=== PATIENT | female | born 1950 | race Caucasian/White ===

== ENCOUNTER 2016-12-04 10:55 | Outpatient (CLI) | payer OTHER ==
--- NOTE | 2016-12-04 13:12 | DIAGNOSTIC IMAGING REPORT ---
PROCEDURE: US VENOUS - RIGHT EXT INDICATION: RT NON HEALING WOUND,DIABETIC.SWELLING,PAIN. TECHNIQUE: Duplex sonography of the deep and superficial venous system in the right lower extremity was performed. Compression and augmentation techniques were used. The patient was scanned in the upright position. Surveillance of the venous system during Valsalva maneuver when appropriate was performed. COMPARISON: Bilateral lower extremity venous insufficiency ultrasound 05/03/2014 FINDINGS: Each interrogated segment of the deep vein demonstrates normal compressibility, augmentation, and normal color Doppler flow without filling defect. No thrombus in either greater saphenous or short saphenous vein. There is no venous reflux in the right common or superficial femoral veins. Right greater saphenous vein has been harvested. There is a 4.4 cm complex avascular popliteal cyst. IMPRESSION: 1. No evidence of a right leg DVT or venous insufficiency 2. Right greater saphenous vein previously harvested 3. Right popliteal cyst
--- NOTE | 2016-12-04 13:57 | DIAGNOSTIC IMAGING REPORT ---
PROCEDURE: US ART LOW EXT WITH KANNAN-RIGHT INDICATION: RT NON HEALING WOUND,DIABETIC.SWELLING,PAIN. TECHNIQUE: Resting ABIs were performed. Color Doppler duplex imaging of the right lower extremity was performed. COMPARISON: Bilateral lower extremity arterial duplex ultrasound 05/03/2014 FINDINGS: ABIs: Posterior tibial and dorsalis pedis were undetectable. VESSELS: Extensive calcific atherosclerosis. Biphasic wave form of the external iliac and common femoral arteries with monophasic wave form distally to the ankle including the graft. RIGHT LOWER EXTREMITY PEAK SYSTOLIC VELOCITIES: External iliac: 163 cm/second. Common femoral artery: 13 cm/second. There is a fem-pop graft with proximal anastomoses 16 cm/sec and distal anastomosis 5 cm/sec. There is markedly slow flow through the graft. Profunda femoral artery: 307 cm/second. Mid superficial femoral artery: 26 cm/second. Distal superficial femoral artery: 7 cm/second. Popliteal artery: 8 cm/second. Proximal posterior tibial artery: 9 cm/second. Proximal anterior tibial artery: 10 cm/second. Distal posterior tibial artery: 9 cm/second. Dorsalis pedis artery: 6 cm/second. IMPRESSION: 1. Right lower extremity severe resting arterial insufficiency with trickle flow through the common femoral artery and fem-pop graft. Markedly diminished flow to the ankle. 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 2. Results discussed with Dr. Miller (Dr. Plasencia).
--- NOTE | 2016-12-04 14:17 | DIAGNOSTIC IMAGING REPORT ---
PROCEDURE: XR FOOT 3 VIEWS - RIGHT INDICATION: POSSIBLE FRACTURE TECHNIQUE: Three views. COMPARISON: None. FINDINGS: There is an old healed fracture of the proximal phalanx of the great toe. There are large calcaneal spurs. IMPRESSION: 1. Old healed fracture of the proximal phalanx of the great toe.
== END 2016-12-04 23:00 ==
LOC: US SRH 10:55
DX: L97.522 Non-pressure chronic ulcer of other part of left foot with fat layer exposed (principal); I74.3 Embolism and thrombosis of arteries of the lower extremities; S92.411S Displaced fracture of proximal phalanx of right great toe, sequela

== ENCOUNTER 2017-01-16 03:23 | Inpatient (IN) | payer OTHER ==
[2017-01-16] VITALS (17 sets, daily range): BP systolic 93–157; BP diastolic 54–107
[~2017-01-16] VITALS: Ht 162.6 cm; Wt 94.9 kg
--- NOTE | 2017-01-16 05:07 | ED ORDER SUMMARY ---
..... Patient: ANDRE DONATO OrderSheet [facility] VisitID: [id number] [place] [address] 66y, F Registration Date/Time: 01/16/2017 ORDER SHEET Weight: 79.3 kg (estimated) Allergies: Codeine GENERAL ORDERS: CBC w Diff Urgent (03:31 01/16/2017 Charlie Morales) (Ack 3:50 SRedmond) (4:01 SRedmond) CMP Urgent (03:31 01/16/2017 Charlie Morales) (Ack 3:50 SRedmond) (4:01 SRedmond) UA-Culture if indicated Urgent (03:31 01/16/2017 Charlie Morales) (Ack 3:50 SRedmond) (4:31 ALawrence ER Tech1) Chest 1V Urgent (03:41 01/16/2017 Charlie Morales) (Ack 3:50 SRedmond) (4:03 Vahid) Cotter Catheter (03:43 01/16/2017 Charlie Morales) (Ack 3:50 SRedmond) (4:36 RCollpramod R.N.) BNP Urgent (04:03 01/16/2017 Charlie Morales) (Ack 4:07 SRedmond) (4:31 ALawrence ER Tech1) Transfuse PRBCs (2 units) (04:31 01/16/2017 Charlie Morales) (Ack 4:35 SRedmond) Type & Cross (symptomatic anemia) (prevent transfusion rxn) Urgent (04:31 01/16/2017 Charlie Morales) (Ack 4:35 SRedmond) (4:58 ALawrence ER Tech1) EKG - ER Stat (04:58 01/16/2017 ALawrence ER Tech1 verbal order read back to Charlie Morales) (4:58 AMcQuoid ER Tech1) MEDICATION ORDERS: DuoNeb Neb Tx 1 unit dose (NOW) (03:40 01/16/2017 Charlie Morales) (5:11 SSambou R.N.) Prednisone PO 40 mg (NOW) (03:40 01/16/2017 Charlie Morales) (Cancelled: Physician Order4:06 Charlie Morales) IV FLUIDS: IV Saline Lock (03:31 01/16/2017 Charlie Morales) (Ack 5:10 Yamila Laws.NManjeet) Solu-MEDROL IV 125 mg (NOW) (04:05 01/16/2017 Charlie Morales) (4:10 Walter R.NManjeet) D-50 IV 1 amp (HIGH ALERT MEDICATION, NOW, IVP) (04:29 01/16/2017 Charlie Morales) (4:32 Sudhir R.NManjeet) IV D5W / NS : initial bolus none -, then 75 mL/hr for X1 (NOW) (04:29 01/16/2017 Charlie Morales) (4:38 Sudhir Laws.NManjeet) Rocephin IV 1 gm/50mL (NOW) (04:40 01/16/2017 Charlie Morales) (5:03 Yamila Leal) ORDER SHEET NOTES: [Electronically signed by Hubert Pendleton Dr. (05:11 01/16/2017)] [Electronically signed by Sheriff Elvis Quezada (06:41 01/16/2017)] [Electronically locked/signed by Sheriff Elvis Quezada (06:41 01/16/2017)]
--- NOTE | 2017-01-16 05:07 | ED CLINICAL REPORT ---
Clinical Report - Physicians/Mid Levels [facility] [address] [place] [address] 01/16/2017 3:26 Patient: ANDRE DONATO Time Seen: 03:32; initial patient contact. Arrived- By ambulance. Historian- patient. History limited by altered mental status. Physical Exam limited by altered mental status. HISTORY OF PRESENT ILLNESS Is no longer unconscious. She recovered at the scene. Chief Complaint: NEAR-SYNCOPE. This occurred just prior to arrival. Event was not witnessed. The patient felt faint and lost consciousness. No seizure activity, incontinence or apnea noted. The patient had preceding symptoms of light-headedness and dim vision. No preceding symptoms of nausea, chest pain or abdominal pain. At time of event, she had just stood up. Had a single episode. No injuries noted. She currently has weakness. (Pt w/ a Hct of 18, was scheduled for transfusion today). Similar symptoms previously: None. Recent medical care: Not recently seen/assessed. REVIEW OF SYSTEMS No chest pain, palpitations, abdominal pain, vomiting or diarrhea. No black stools or bloody stools. She has had difficulty breathing and pedal edema. All systems otherwise negative, except as recorded above. PAST HISTORY ( Fall. Peripheral Vascular Disease. Diabetes Mellitus Type 2. Gastroesophageal Reflux. Hypertension. Chronic kidney disease stage 4 Depression. Hyperlipidemia. Encephalopathy. UTI - Urinary Tract Infection. Rt AKA.). SOCIAL HISTORY Smoker - current status unknown. ADDITIONAL NOTES The nursing notes have been reviewed with agreement regarding the chief complaint, PMH and patient medications and allergies. PHYSICAL EXAM Vital Signs: 01/16/2017 03:34 BP: 126/55. HR: 69. RR: 23. O2 saturation: 97%. Have been reviewed. Hypotensive. Heart rate normal. Tachypneic. Oxygen saturation normal. Appearance: Lethargic. ENT: Dry mucous membranes present. No trouble handling secretions. (Pale mucosa). CVS: Bradycardia. Heart sounds normal. Rhythm normal. Respiratory: Mild respiratory distress with accessory muscle use and retractions. Expiratory moderate bilateral wheezes diffusely. Abdomen: Soft and nontender. No organomegaly. Obese. Skin: Moderate pallor. No rash. (Stage 1 diffuse sacral decubitus ulcer). Extremities: 2+ edema of the left lower extremity involving the lower leg. Right above the knee amputation. Neuro: Altered mental status. Eyes open to voice. Best verbal response: oriented X 3. Best motor response: obeys commands. LABS, X-RAYS, AND EKG EKG: EKG time: (0426). Wide-complex bradycardia. Sinus bradycardia. First-degree atrioventricular block. Wide QRS- intraventricular conduction delay. RBBB. Normal ST and T waves, QT and QTc. Prior EKG unavailable. The study has been interpreted contemporaneously by me. The study has been independently viewed by me. Artifact present. I agree with and confirm the computer reading of the EKG. Interpretation time: 425. Chest X-ray: Congestive heart failure present. Vascular congestion present. Moderate hyperinflation present on the right and left with flattening of the diaphragm. Consistent with COPD. Moderate cardiomegaly with signs of vascular congestion. No infiltrate. Views: AP. Technique: good. The X-rays were independently viewed by me and interpreted contemporaneously by me. Prior films were not available for comparison. Interpretation time: 04:10. Laboratory Tests: UA-Culture if indicated: (KISHAN: 01/16/2017 04:00) ( MsgRcvd 01/16/2017 04:20) Final results Test Result Flag Units (Reference) URINE COLOR YELLOW URINE APPEARANCE CLOUDY URINE GLUCOSE NEGATIVE (NEGATIVE) URINE BILIRUBIN NEGATIVE (NEGATIVE) URINE KETONE NEGATIVE (NEGATIVE) URINE SPECIFIC GRAVITY 1.020 (1.010-1.030) URINE PH 8.0 (5.0-8.0) URINE PROTEIN 2+ (NEGATIVE) URINE UROBILINOGEN 0.2 EU/dL (0.2-1.0) URINE NITRITE NEGATIVE (NEGATIVE) URINE BLOOD TRACE-LYSED (NEGATIVE) URINE LEUK ESTERASE POSITIVE (NEGATIVE) URINE RBC 1-3 rbc/hpf (0-1) URINE WBC >100 wbc/hpf (0-1) URINE EPITHELIAL CELLS 0-1 EPI/hpf (0-5) URINE BACTERIA MODERATE (2+ TO 3+) (NONE SEEN) URINE COMMENT CULTURE INDICATED URINE CULTURES ARE SET-UP BASED ON THE FOLLOWING CRITERIA:POSITIVE NITRITEPOSITIVE LEUKOCYTE ESTERASEGREATER THAN 10 WHITE BLOOD CELLSMODERATE (2+) OR GREATER BACTERIA CBC w Diff: (KISHAN: 01/16/2017 03:35) ( [facility] 01/16/2017 04:06) IP Test Result Flag Units (Reference) WHITE BLOOD COUNT 5.6 K/uL (4.5-11.5) RED BLOOD COUNT 2.05 L M/uL (4.00-5.20) HEMATOCRIT 19.5 *L % (36.0-46.0) CRITICAL RESULTS CALLEDCalled to FLIP 01/16/17 0400Were 2 patient identifiers used? YWas the result read back? Y MEAN CELL VOLUME 95 fL (80-100) MEAN CORPUSCULAR HGB 31 pg (26-34) MEAN CORPUSCULAR HGB CONC 32 g/dL (31-37) RED CELL DISTRIBUTION WIDTH 20.7 H % (11.6-14.8) PLATELET COUNT 215 K/uL (150-400) NEUTROPHIL % 83.2 H % (50-75) LYMPH % 9.4 L % (25-40) MONO % 5.0 % (3-14) EOSINOPHIL % 2.1 % (0-4) BASOPHIL % 0.3 % (0-2) BNP: (KISHAN: 01/16/2017 03:35) ( [facility] 01/16/2017 04:26) Final results Test Result Flag Units (Reference) B-TYPE NATRIURETIC PEPTIDE 120 H pg/ml (5-100) CMP: (KISHAN: 01/16/2017 03:35) ( [facility] 01/16/2017 04:00) Final results Test Result Flag Units (Reference) GLUCOSE 78 mg/dL (70-110) BUN 49 H mg/dL (7-18) CREATININE 3.4 H mg/dL (0.6-1.3) Estimated GFR 14.36 mL/min Estimated GFR- 17.41 mL/min Note: Persistent reduction over 3 months in eGFR<60 mL/min/1.73 m2 defines CKD. Patients with eGFR values>=60 mL/min/1.73 m2 may also have CKD if evidence ofpersistent proteinuria. Additional information may be foundat www.[email or web address].org. SODIUM 141 mmol/L (136-145) POTASSIUM 5.0 mmol/L (3.5-5.1) CHLORIDE 108 H mmol/L (98-107) CARBON DIOXIDE 22 mmol/L (21-32) CALCIUM 9.0 mg/dL (8.5-10.1) TOTAL PROTEIN 6.1 L g/dL (6.4-8.2) ALBUMIN 2.1 L g/dL (3.3-5.0) BILIRUBIN, TOTAL 0.3 mg/dL (0.0-1.0) ALKALINE PHOSPHATASE 112 U/L (46-116) AST (SGOT) 15 U/L (15-37) ALT (SGPT) 13 U/L (12-78) . PROGRESS AND PROCEDURES Critical care performed (75 minutes). Time includes: direct patient care, patient reassessment, coordination of patient care, interpretation of data (laboratory data, pulse oximetry and chest xrays), review of patient's medical records, medical consultation and documentation of patient care. The patient required critical care due to the acute impairment of vital organ systems (respiratory, hematologic, endocrine and renal) and a high probability of imminent deterioration. Multiple urgent interventions were required to prevent sudden deterioration. Discussed case with hospitalist. Reviewed test results and need for additional work-up. Agreed upon decision to admit. Health care provider will see patient in ED. Disposition: Admitted to Acute Care. Admit decision based on need for monitoring, IV therapy and medications and stabilization of condition. CLINICAL IMPRESSION Acute exacerbation of COPD (emphysematous). Severe chronic renal failure. Stage 1 pressure ulcer with persistent focal erythema on the sacral area. Type 2 diabetes with hypoglycemia. No coma. Moderate acute anemia associated with chronic renal disease. No iron deficiency anemia from chronic blood loss. INSTRUCTIONS Follow-up: Blood pressure screening was not performed during this visit because the patient has an active diagnosis of hypertension. (Electronically signed by Hubert Pendleton Dr. 01/16/2017 5:11)
--- NOTE | 2017-01-16 05:07 | ED NURSING NOTES ---
Clinical Report - Nurses [place] [address] [place] [address] 01/16/2017 3:26 [facility]: [id number] TRI[facility] Triage time 03:35. ALICE COMA SCORE: Alice Coma Scale: 14- eyes open to voice (3); best verbal response- oriented x 4 (5); best motor response- obeys commands (6). --03:50 Arabella Bunn R.N. 03:34 01/16/17. BP: 126/55. HR: 69. RR: 23. O2 saturation: 97%. --03:50 Arabella Bunn R.N. Chief Complaint: (Fall). --06:40 Sheriff Quezada R.N. Weight: 79.3 kg estimated. Height/Length: 65 inches Estimated. BMI: 29.1. --03:33 Sheriff Quezada R.N. Medications Acetaminophen Oral. --04:15 Arabella Bunn R.N. Amlodipine Besy-Benazepril HCl Oral 10mg, daily. --04:15 Arabella Bunn R.N. Ascorbic Acid Oral (Tablet Chewable 500 mg) 1 tablet, daily. --04:16 Arabella Bunn R.N. Atorvastatin Calcium Oral (Tablet 20 mg) 1 tablet, daily. --04:17 Arabella Bunn R.N. Dulcolax Rectal (Suppository 10 mg) 1 suppository, daily as needed. --04:19 Arabella Bunn R.N. Ergocalciferol Oral. --04:19 Arabella Bunn R.N. Ferrous Sulfate Oral 325 mg, 3x a day. --04:20 Arabella Bunn R.N. Folic Acid Oral (Tablet 1 mg) 1 tablet, daily. --04:21 Arabella Bunn R.N. Gabapentin Oral (Capsule 100 mg) 1 capsule, 2x a day. --04:22 Arabella Bunn R.N. Insulin Lispro (Human) Subcutaneous. --04:22 Arabella Bunn R.N. Labetalol HCl Oral (Tablet 100 mg) 1 tablet, 2x a day. --04:23 Arabella Bunn R.N. Insulin Glargine Subcutaneous. --04:24 Arabella Bunn R.N. Melatonin Oral (Tablet 3 mg) 1 tablet, daily. --04:25 Arabella Bunn R.N. Milk of Magnesia Oral 1200mg/15ml, daily as needed. --04:26 Arabella Bunn R.N. Pantoprazole Sodium Oral. --04:27 Arabella Bunn R.N. Senna Laxative Oral (Tablet 8.6 mg) 1 tablet, daily. --04:28 Arabella Bunn R.N. Venlafaxine HCl ER Oral 75mg, daily. --04:29 Arabella Bunn R.N. Allergies Codeine. --03:40 Arabella Bunn R.N. History <<STRICKEN ENTRY-- Historian: EMS. Arrived from a retirement. ( Lethargic, altered metal status, hypoglycemic). Treatment STORAGE AND BACKUP ADMINISTRATOR: See EMS report. Medications given- D-50 x1. ( NS 1000 mls hanging upon arrival, 2oo mls infused.). NUTRITIONAL RISK ASSESSMENT: The nutritional risk assessment revealed no deficiencies. LEARNING NEEDS ASSESSMENT: The learning needs assessment revealed no barriers. SKIN INTEGRITY ASSESSMENT: Skin integrity risk assessment completed. No skin integrity risk identified. --03:50 Arabella Bunn R.N. --END STRIKE>> Correction --05:22 Arabella Bunn R.N. FALL RISK ASSESSMENT: Fall risk assessment completed. Risk factors identified include patient history of fall. Fall interventions initiated. Patient placed on stretcher. Side rails up x2. Brakes on Bed in low position. RT BKA, hypoglycemia. --05:18 Sheriff Quezaad R.N. Historian: EMS. Arrived from a retirement. ( Lethargic, altered metal status, hypoglycemic). Treatment STORAGE AND BACKUP ADMINISTRATOR: See EMS report. Medications given- D-50 x1. ( NS 1000 mls hanging upon arrival, 2oo mls infused.). SKIN INTEGRITY ASSESSMENT: Skin integrity risk assessment was performed. Risk factors identified include restricted mobility, non ambulatory, positioning assistance, unresponsive and incontinent. NUTRITIONAL RISK ASSESSMENT: The nutritional risk assessment revealed no deficiencies. LEARNING NEEDS ASSESSMENT: The learning needs assessment revealed no barriers. --05:23 Arabella Bunn R.N. PROBLEMS: Fall. Peripheral Vascular Disease. Diabetes Mellitus Type 2. Gastroesophageal Reflux. Hypertension. Chronic kidney disease stage 1. Chronic kidney disease. Depression. Hyperlipidemia. Encephalopathy. UTI - Urinary Tract Infection. --04:34 Arabella Bunn R.N. RT BKA. --05:19 Sheriff Quezada R.N. The following entry was modified by Sheriff Quezada R.N., 05:19 Reason - other <<STRICKEN ENTRY-- Rt AKA. --04:30 Sheriff Quezada R.N. --END STRIKE>>. Interventions ID band on patient. To room. --03:50 Arabella Bunn R.N. PHYSICAL ASSESSMENT <<STRICKEN ENTRY-- Patient gowned. GENERAL / NEURO / PSYCH: The patient is disoriented to place and time. HEENT: Pupils equal, round and reactive to light. RESPIRATORY: Moderate respiratory distress. Wheezing present. CVS: Cardiac rhythm: sinus bradycardia. Capillary refill less than 2 seconds. Pulses within normal limits. GI / : Abdomen soft. SKIN: Skin is warm and dry. --03:52 Arabella Bunn R.N. --END STRIKE>> Correction --05:21 Arabella Bunn R.N. SKIN: ( RT BKA with stitches on,. stage 1 skin breakdown on coccyx.). --05:14 Sheriff Quezada R.N. Patient gowned. GENERAL / NEURO / PSYCH: The patient is disoriented to place and time. HEENT: Pupils equal, round and reactive to light. RESPIRATORY: Moderate respiratory distress. Wheezing present. CVS: Cardiac rhythm: sinus bradycardia. Capillary refill less than 2 seconds. Pulses within normal limits. GI / : Abdomen soft. SKIN: Skin is warm and dry. --05:22 Arabella Bunn R.N. NURSING PROGRESS NOTES Patient gowned. Head of bed elevated. Two patient identifiers checked. Call light placed in reach. Side rails up x 2. Bed placed in lowest position. Brakes of bed on. Patient ready for evaluation- chart flagged. --03:52 Arabella Bunn R.N. ( MD notified of critical lab value). --04:06 Te Gilltete R.N. 04:10 01/16/2017 Site #1 started via IV in the right antecubital space with an 20g angiocath; one attempt. Blood drawn: rainbow set. Saline lock flushed with 10 mL saline. --04:10 Arabella Bunn R.N. 04:10 01/16/2017 SOLU-MEDROL (MethylPREDNISolone Sodium Succ) IVP 125 mg given over 2 minute(s) via site #1. Allergies verified and confirmed 5 rights. IV patency established site checked: no pain, redness, or swelling flushed thoroughly pre- and post-medication administration. IVP given by RN. --04:10 Arabella Bunn R.N. 16 fr booker catheter. Reason for indwelling catheter: patient's decreased level of consciousness. During procedure hand hygiene observed and sterile equipment and aseptic technique used. Return of greater than 1000 mL yellow-colored cloudy urine; attached to bedside drainage bag positioned below the bladder and urimeter. It was a complicated placement. She tolerated procedure well ([address] booker). Patient ID band checked for patient name and birthdate. Catheterized urine collected with return of yellow-colored cloudy urine; sample sent to lab. Specimen labeled in the presence of the patient. --04:12 Arabella Bunn R.N. 04:10 01/16/2017 Duoneb (Ipratropium-Albuterol) Neb TX Nebulizer 1 unit dose given. Given by the respiratory therapist. Allergies verified and confirmed 5 rights. --05:11 Sheriff Quezada R.N. 04:30 01/16/17. ( CBG 54 reported to meds ordered). --04:41 Te Gillette R.N. 04:32 01/16/2017 D-50 IVP 1 Amp given over 2 minute(s) via site #1. Allergies verified and confirmed 5 rights. IV patency established. IV site checked: no pain, redness, or swelling. IV flushed thoroughly pre- and post-medication administration. IVP given by RN. --04:32 Te Gillette R.N. 04:37 01/16/2017 Started bag #1 1000 mL IV Fluids IV D5W 1/2 NS (Dextrose-NaCl); at 75 mL/hr via site #2 via IV pump. Allergies verified and confirmed 5 rights. IV patency established. IV site checked: no pain, redness, or swelling. IV flushed thoroughly pre- and post-medication administration. --04:38 Te Gillette R.N. 04:38 01/16/2017 Site #2 started prior to arrival by EMS via IV in the left antecubital space with an 18g angiocath. --04:38 Te Gillette R.N. EKG time: (0426). EKG was performed by a tech and shown to the ED physician. --04:57 Shireen Miller, ER Tech1 05:03 01/16/2017 Started 1 gm of Rocephin (CefTRIAXone Sodium) IVPB in bag #1 50 mL; at 150 mL/hr via site #2 via IV pump. Allergies verified and confirmed 5 rights. IV patency established site checked: no pain, redness, or swelling flushed thoroughly pre- and post-medication administration. --05:03 Sheriff Quezada R.N. 05:16 01/16/2017 Rocephin IVPB Discontinued: bag #1 upon arrival. Total amount infused: 50 mL. IV patency established IV site checked: no pain, redness, or swelling IV flushed thoroughly. --05:26 Sheriff Quezada R.N. 05:54 01/16/17. BP: 147/65. HR: 52. RR: 18. O2 saturation: 90%. Pain level now: 12/13. --05:55 Sheriff Quezada R.N. 03:34 01/16/17. BP: 126/55. HR: 69. RR: 23. O2 saturation: 97%. --05:55 Sheriff Quezada R.N. ( O2 at 4L via nasal canula with O2sat at 95%,). --05:58 Sheriff Quezada R.N. DISPOSITION / DISCHARGE Cardiac rhythm: sinus bradycardia. Condition at departure: unchanged. Admitted to the Critical Care Unit (6:30 AM). Transported via stretcher by tech and nurse with IV and O2. Report was given to a nurse via a phone call. Report included patient's care, treatment and condition (including any recent changes or anticipated changes) and medications given to the patient in the ED and patient's home medications. All questions were answered. Report was acknowledged and care was transferred. Bed obtained and ready (6:25 AM). Patient has no belongings. --06:38 Sheriff Quezada R.N. 06:33 01/16/17. BP: 136/66. HR: 68. RR: 23. O2 saturation: 93%. Pain level now: 12/13. --06:38 Sheriff Quezada R.N. Locked/Released at 01/16/2017 6:41 by Sheriff Quezada R.N.
--- NOTE | 2017-01-16 05:07 | ED ORDER SUMMARY ---
..... Patient: ANDRE DONATO OrderSheet [facility] VisitID: [id number] [place] [address] 66y, F Registration Date/Time: 01/16/2017 ORDER SHEET Weight: 79.3 kg (estimated) Allergies: Codeine GENERAL ORDERS: CBC w Diff Urgent (03:31 01/16/2017 Charlie Morales) (Ack 3:50 SRedmond) (4:01 SRedmond) CMP Urgent (03:31 01/16/2017 Charlie Morales) (Ack 3:50 SRedmond) (4:01 SRedmond) UA-Culture if indicated Urgent (03:31 01/16/2017 Charlie Morales) (Ack 3:50 SRedmond) (4:31 ALawrence ER Tech1) Chest 1V Urgent (03:41 01/16/2017 Charlie Morales) (Ack 3:50 SRedmond) (4:03 Vahid) Cotter Catheter (03:43 01/16/2017 Charlie Morales) (Ack 3:50 SRedmond) (4:36 RCollpramod R.N.) BNP Urgent (04:03 01/16/2017 Charlie Morales) (Ack 4:07 SRedmond) (4:31 ALawrence ER Tech1) Transfuse PRBCs (2 units) (04:31 01/16/2017 Charlie Morales) (Ack 4:35 SRedmond) Type & Cross (symptomatic anemia) (prevent transfusion rxn) Urgent (04:31 01/16/2017 Charlie Morales) (Ack 4:35 SRedmond) (4:58 ALawrence ER Tech1) EKG - ER Stat (04:58 01/16/2017 ALawrence ER Tech1 verbal order read back to Charlie Morales) (4:58 AMcQuoid ER Tech1) MEDICATION ORDERS: DuoNeb Neb Tx 1 unit dose (NOW) (03:40 01/16/2017 Charlie Morales) (5:11 SSambou R.N.) Prednisone PO 40 mg (NOW) (03:40 01/16/2017 Charlie Morales) (Cancelled: Physician Order4:06 Charlie Morales) IV FLUIDS: IV Saline Lock (03:31 01/16/2017 Charlie Morales) (Ack 5:10 Yamila Laws.NManjeet) Solu-MEDROL IV 125 mg (NOW) (04:05 01/16/2017 Charlie Morales) (4:10 Walter R.NManjeet) D-50 IV 1 amp (HIGH ALERT MEDICATION, NOW, IVP) (04:29 01/16/2017 Charlie Morales) (4:32 Sudhir R.NManjeet) IV D5W / NS : initial bolus none -, then 75 mL/hr for X1 (NOW) (04:29 01/16/2017 Charlie Morales) (4:38 Sudhir Laws.NManjeet) Rocephin IV 1 gm/50mL (NOW) (04:40 01/16/2017 Charlie Morales) (5:03 Yamila Leal) ORDER SHEET NOTES: [Electronically signed by Hubert Pendleton Dr. (05:11 01/16/2017)] [Electronically signed by Sheriff Elvis Quezada (06:41 01/16/2017)] [Electronically locked/signed by Sheriff Elvis Quezada (06:41 01/16/2017)]
--- NOTE | 2017-01-16 05:15 | Progress Note ---
Subjective General Full note dictated 66y.o female with hx of DM, Chronic kidney failure, copd, anemia, GIB, who was at [facility] presented to the ER with fall out of bed and decrease in mental status. Was supposed to be admitted to the hospital for a transfusion with low hct (19) in am. a/p: 1- severe anemia transfuse 2 units 2- copd hx of smoking and treat wtih inhalation meds 3- chronic renal failue watch 4- DMII monitor on her blood sugars 5- GIB will check on old records for recent work up. 6- UTI culture pending and back today given a dose of ceftriaxone in er will continue for UTI and copd. I suspect after the transfusion if she is better will be able to d/c home. Has been with low blood sugars and will have lantus decreased to 14 units.
--- NOTE | 2017-01-16 06:42 | ED MED RECONCILIATION SUMMARY ---
Patient: ANDRE DONATO Medication Reconciliation Report [facility] VisitID: [id number] [address] [place] [address] 66y, F Registration Date/Time: 01/16/2017 Weight: 79.3 kg Height/Length: 65 in. BMI: 29.1 ALLERGIES: Codeine The patient's Home Medications are listed below: THE FOLLOWING MEDICATIONS NEED TO BE RECONCILED: Acetaminophen Oral Amlodipine Besy-Benazepril HCl Oral 10mg, daily Ascorbic Acid Oral (500 mg) 1 tablet, daily Atorvastatin Calcium Oral (20 mg) 1 tablet, daily Dulcolax Rectal (10 mg) 1 suppository, daily Ergocalciferol Oral Ferrous Sulfate Oral 325 mg, 3x a day Folic Acid Oral (1 mg) 1 tablet, daily Gabapentin Oral (100 mg) 1 capsule, 2x a day Insulin Glargine Subcutaneous Insulin Lispro (Human) Subcutaneous Labetalol HCl Oral (100 mg) 1 tablet, 2x a day Melatonin Oral (3 mg) 1 tablet, daily Milk of Magnesia Oral 1200mg/15ml, daily Pantoprazole Sodium Oral Senna Laxative Oral (8.6 mg) 1 tablet, daily Venlafaxine HCl ER Oral 75mg, daily The source(s) of the original Home Medication information: Not obtained. The following Medications were given to the patient in the Emergency Department: SOLU-MEDROL [IVP] IVP 125 mg, administered: 01/16/2017 4:10:00 AM D-50 [IVP] IVP 1 Amp, administered: 01/16/2017 4:32:00 AM IV D5W 1/2 NS IV Fluids bolus 0, then 75 mL/hr, administered: 01/16/2017 4:37:00 AM Rocephin [IVPB] IVPB bolus 0, then 1 gm 150 mL/hr, administered: 01/16/2017 5:03:00 AM Duoneb [Neb Tx] Neb TX 1 unit dose, administered: 01/16/2017 4:10:00 AM The following Medications were prescribed to the patient: None.
--- NOTE | 2017-01-16 06:42 | ED DISCHARGE INSTRUCTIONS ---
Patient: ANDRE DONATO General Instructions [facility] VisitID: [id number] [place] [address] 66y, F Registration Date/Time: 01/16/2017 Acute exacerbation of COPD (emphysematous). Severe chronic renal failure. Stage 1 pressure ulcer with persistent focal erythema on the sacral area. Type 2 diabetes with hypoglycemia. No coma. Moderate acute anemia associated with chronic renal disease. No iron deficiency anemia from chronic blood loss. INSTRUCTIONS Follow-up: Blood pressure screening was not performed during this visit because the patient has an active diagnosis of hypertension. ADDITIONAL INFORMATION Anemia [Type Not Specified, Adult] Red blood cells carry oxygen to the tissues of the body. Anemia is a condition where the size or number of red blood cells in the body is reduced. Iron is needed to make red blood cells. The most common cause of anemia is iron deficiency. This may be due to: i) Blood loss (heavy menstrual periods or bleeding from the stomach or intestines); or, ii) Not eating enough iron-containing foods. Other causes of anemia include certain vitamin deficiencies, chronic kidney disease or certain other chronic illnesses. Anemia causes a feeling of being tired and run down. When anemia becomes severe, the skin becomes pale and there is shortness of breath with exertion. Headaches, dizziness, leg cramps with exertion, drowsiness and fatigue are other common symptoms. Home Care: If you are having symptoms of anemia listed above: -- Do not overexert yourself. -- Talk to your doctor before flying on an airplane or traveling to high altitudes. Follow Up with your doctor as advised by our staff. Additional blood testing may be required to determine the exact cause of your anemia. If testing was done on this visit, it may take several days to get all of the results. You may call this facility or follow up with your own doctor to get the results. Get Prompt Medical Attention if any of the following occur: -- Shortness of breath or chest pain -- Worsening of dizziness, fainting -- Vomiting blood or passing red or black-colored stool You have been given the following additional information: Anemia, Type Not Specified (Adult) (Electronically signed by Hubert Pendleton Dr. 01/16/2017 5:11)
--- NOTE | 2017-01-16 06:42 | ED MED RECONCILIATION SUMMARY ---
Patient: ANDRE DONATO Medication Reconciliation Report [facility] VisitID: [id number] [address] [place] [address] 66y, F Registration Date/Time: 01/16/2017 Weight: 79.3 kg Height/Length: 65 in. BMI: 29.1 ALLERGIES: Codeine The patient's Home Medications are listed below: THE FOLLOWING MEDICATIONS NEED TO BE RECONCILED: Acetaminophen Oral Amlodipine Besy-Benazepril HCl Oral 10mg, daily Ascorbic Acid Oral (500 mg) 1 tablet, daily Atorvastatin Calcium Oral (20 mg) 1 tablet, daily Dulcolax Rectal (10 mg) 1 suppository, daily Ergocalciferol Oral Ferrous Sulfate Oral 325 mg, 3x a day Folic Acid Oral (1 mg) 1 tablet, daily Gabapentin Oral (100 mg) 1 capsule, 2x a day Insulin Glargine Subcutaneous Insulin Lispro (Human) Subcutaneous Labetalol HCl Oral (100 mg) 1 tablet, 2x a day Melatonin Oral (3 mg) 1 tablet, daily Milk of Magnesia Oral 1200mg/15ml, daily Pantoprazole Sodium Oral Senna Laxative Oral (8.6 mg) 1 tablet, daily Venlafaxine HCl ER Oral 75mg, daily The source(s) of the original Home Medication information: Not obtained. The following Medications were given to the patient in the Emergency Department: SOLU-MEDROL [IVP] IVP 125 mg, administered: 01/16/2017 4:10:00 AM D-50 [IVP] IVP 1 Amp, administered: 01/16/2017 4:32:00 AM IV D5W 1/2 NS IV Fluids bolus 0, then 75 mL/hr, administered: 01/16/2017 4:37:00 AM Rocephin [IVPB] IVPB bolus 0, then 1 gm 150 mL/hr, administered: 01/16/2017 5:03:00 AM Duoneb [Neb Tx] Neb TX 1 unit dose, administered: 01/16/2017 4:10:00 AM The following Medications were prescribed to the patient: None.
--- NOTE | 2017-01-16 06:42 | ED MAR SUMMARY ---
..... Medication Administration Record [facility] [address] [place] [address] Patient: ANDRE DONATO Visit ID: [id number] 66y, F Weight: 79.3 kg Height/Length: 65 in BMI: 29.1 ALLERGIES: Codeine Given 04:10 01/16/2017 Sheriff Quezada R.N. Medication Administered: DUONEB [NEB TX] (IPRATROPIUM-ALBUTEROL), Dose: 1 unit dose Nebulizer Neb TX. Medication Ordered: DuoNeb Neb Tx 1 unit dose (NOW). Given 04:10 01/16/2017 Arabella Bunn R.N. Medication Administered: SOLU-MEDROL [IVP] (METHYLPREDNISOLONE SODIUM SUCC), Dose: 125 mg IVP over 2 minute(s), Site: #1 right AC. Medication Ordered: Solu-MEDROL IV 125 mg (NOW). Given 04:32 01/16/2017 Te Gillette R.N. Medication Administered: D-50 [IVP], Dose: 1 Amp IVP over 2 minute(s), Site: #1 right AC. Medication Ordered: D-50 IV 1 amp (HIGH ALERT MEDICATION, NOW, IVP). Start 04:37 01/16/2017 Te Gillette R.N. Medication Administered: IV D5W 1/2 NS (DEXTROSE-NACL), Dose: IV Fluids, Rate: 75 mL/hr, Dispensed: 1000 mL bag, Site: #2. Medication Ordered: IV D5W 1/2 NS : initial bolus none -, then 75 mL/hr for X1 (NOW). Start 05:03 01/16/2017 Sheriff Quezada R.N., Stop 05:16 01/16/2017 Sheriff Quezada R.N. Medication Administered: ROCEPHIN [IVPB] (CEFTRIAXONE SODIUM), Dose: 1 gm IVPB, Rate: 150 mL/hr, Dispensed: 50 mL bag, Site: #2 left AC. Medication Ordered: Rocephin IV 1 gm/50mL (NOW).
--- NOTE | 2017-01-16 06:42 | ED DISCHARGE INSTRUCTIONS ---
Patient: ANDRE DONATO General Instructions [facility] VisitID: [id number] [place] [address] 66y, F Registration Date/Time: 01/16/2017 Acute exacerbation of COPD (emphysematous). Severe chronic renal failure. Stage 1 pressure ulcer with persistent focal erythema on the sacral area. Type 2 diabetes with hypoglycemia. No coma. Moderate acute anemia associated with chronic renal disease. No iron deficiency anemia from chronic blood loss. INSTRUCTIONS Follow-up: Blood pressure screening was not performed during this visit because the patient has an active diagnosis of hypertension. ADDITIONAL INFORMATION Anemia [Type Not Specified, Adult] Red blood cells carry oxygen to the tissues of the body. Anemia is a condition where the size or number of red blood cells in the body is reduced. Iron is needed to make red blood cells. The most common cause of anemia is iron deficiency. This may be due to: i) Blood loss (heavy menstrual periods or bleeding from the stomach or intestines); or, ii) Not eating enough iron-containing foods. Other causes of anemia include certain vitamin deficiencies, chronic kidney disease or certain other chronic illnesses. Anemia causes a feeling of being tired and run down. When anemia becomes severe, the skin becomes pale and there is shortness of breath with exertion. Headaches, dizziness, leg cramps with exertion, drowsiness and fatigue are other common symptoms. Home Care: If you are having symptoms of anemia listed above: -- Do not overexert yourself. -- Talk to your doctor before flying on an airplane or traveling to high altitudes. Follow Up with your doctor as advised by our staff. Additional blood testing may be required to determine the exact cause of your anemia. If testing was done on this visit, it may take several days to get all of the results. You may call this facility or follow up with your own doctor to get the results. Get Prompt Medical Attention if any of the following occur: -- Shortness of breath or chest pain -- Worsening of dizziness, fainting -- Vomiting blood or passing red or black-colored stool You have been given the following additional information: Anemia, Type Not Specified (Adult) (Electronically signed by Hubert Pendleton Dr. 01/16/2017 5:11)
--- NOTE | 2017-01-16 06:42 | ED MAR SUMMARY ---
..... Medication Administration Record [facility] [address] [place] [address] Patient: ANDRE DONATO Visit ID: [id number] 66y, F Weight: 79.3 kg Height/Length: 65 in BMI: 29.1 ALLERGIES: Codeine Given 04:10 01/16/2017 Sheriff Quezada R.N. Medication Administered: DUONEB [NEB TX] (IPRATROPIUM-ALBUTEROL), Dose: 1 unit dose Nebulizer Neb TX. Medication Ordered: DuoNeb Neb Tx 1 unit dose (NOW). Given 04:10 01/16/2017 Arabella Bunn R.N. Medication Administered: SOLU-MEDROL [IVP] (METHYLPREDNISOLONE SODIUM SUCC), Dose: 125 mg IVP over 2 minute(s), Site: #1 right AC. Medication Ordered: Solu-MEDROL IV 125 mg (NOW). Given 04:32 01/16/2017 Te Gillette R.N. Medication Administered: D-50 [IVP], Dose: 1 Amp IVP over 2 minute(s), Site: #1 right AC. Medication Ordered: D-50 IV 1 amp (HIGH ALERT MEDICATION, NOW, IVP). Start 04:37 01/16/2017 Te Gillette R.N. Medication Administered: IV D5W 1/2 NS (DEXTROSE-NACL), Dose: IV Fluids, Rate: 75 mL/hr, Dispensed: 1000 mL bag, Site: #2. Medication Ordered: IV D5W 1/2 NS : initial bolus none -, then 75 mL/hr for X1 (NOW). Start 05:03 01/16/2017 Sheriff Quezada R.N., Stop 05:16 01/16/2017 Sheriff Quezada R.N. Medication Administered: ROCEPHIN [IVPB] (CEFTRIAXONE SODIUM), Dose: 1 gm IVPB, Rate: 150 mL/hr, Dispensed: 50 mL bag, Site: #2 left AC. Medication Ordered: Rocephin IV 1 gm/50mL (NOW).
--- NOTE | 2017-01-16 07:05 | HISTORY AND PHYSICAL ---
ADMITTED: 01/16/2017 CHIEF COMPLAINT: 1. Fall out of bed 2. Severe anemia 3. Type 2 diabetes 4. Chronic renal failure 5. History of encephalopathy 6. Chronic obstructive disease exacerbation, mild HISTORY OF PRESENT ILLNESS: The patient is a resident of [facility] short-term post [id number] amputation, right side, who had chronic renal failure with creatinine around 3 baseline, also admitted with a hematocrit of 22 to the facility and a known history of gastrointestinal bleed. During the stay at the facility, her hematocrit slowly dropped and went from 22 to 19. She was not having any significant symptoms and the decision was to have a transfusion for the day of admission. However, in the night prior, she had rolled out of bed and was acting a little funny and so the decision was made to send her to the emergency department for further evaluation. In the emergency department, she was found to have lung sounds consistent with some mild chronic obstructive pulmonary disease exacerbation, severe anemia as noted prior , low blood sugar, abnormal labs related to her chronic renal disease. MEDICAL/SURGICAL HISTORY: Past medical history: She has had diabetes, peripheral vascular disease, chronic renal failure, anemia, hard of hearing, acute encephalopathy, GI hemorrhage with melena. Her past surgical history: Hysterectomy, cholecystectomy , and femoral-popliteal graft, toe amputation x2 on the left. Her recent right above- knee amputation. MEDICATIONS: 1. Lantus 18 units subcutaneous at bedtime. 2. Amlodipine 10 mg daily. 3. Ascorbic acid 1000 mg daily. 4. Atorvastatin 20 mg p.o. daily. 5. B12 1000 mg daily. 6. Vitamin D 50,000 international units once weekly. 7. Ferrous sulfate 325 mg 1 p.o. t.i.d. for anemia. 8. Folic acid 1 mg p.o. daily. 9. Insulin sliding scale 201-250 one unit, 251-300 two units, 301-350 three units, 351-400 four units, 400 plus five units. 10. Melatonin 3 mg p.o. at bedtime. 11. Venlafaxine XR 75 mg at bedtime. 12. Gabapentin 100 mg 1 capsule 2 times a day for pain. 13. Labetalol 100 mg b.i.d. 14. Pantoprazole 40 mg p.o. daily. 15. Hydralazine 50 mg p.o. t.i.d. 16. Acetaminophen p.r.n. 325 mg 2 tablets q.4 hours. 17. Dulcolax suppository as needed for constipation. 18. Krystal-Lanta as needed for constipation. 19. Milk of Magnesia as needed for constipation. 20. Polyethylene glycol 17 grams daily as needed for constipation. CODE STATUS: FULL. ALLERGIES: 1. CODEINE. SOCIAL HISTORY: She just quit after 20+ pack year smoking history. Denies alcohol or drug use. FAMILY HISTORY: Heart disease, hypertension, and cancer run in her family. REVIEW OF SYSTEMS: The patient states that she has had some right leg pain previous from her above-knee amputation. She has had constipation off and on. She has had confusion issues. She has got a history of melena and gastrointestinal bleed with a recent admission this was noted. She had mental status changes with prior encephalopathy, currently a little bit tired. She has some baseline skin changes at her buttock as well with redness. PHYSICAL EXAMINATION: GENERAL: This patient awakes easily, recognizes me and greets me warmly. She is a little sleepy-appearing and then she is cooperative with exam, stating that she wants to go home. She does appear rather sleepy today. VITAL SIGNS: Blood pressure is 126/55, heart rate of 69, respirations 23, saturating 97%. HEENT: Extraocular movements are intact. Pupils equal, round, and reactive to light. Oropharynx is with moist mucous membranes. NECK: Supple without lymphadenopathy. LUNGS: Coarse breath sounds with some slight prolonged exhalation. HEART: Regular rate and rhythm. ABDOMEN: Obese. It is nontender, nondistended. EXTREMITIES: Right above-knee amputation. Left has +1 edema. SKIN: She has superficial redness and no ulceration at her buttock. BREAST: Deferred. RECTAL: Deferred. NEUROLOGIC: Her cranial nerves II-XII intact. Strength and sensation are grossly intact. LAB/IMAGING: Type and screen O-positive blood. Antibodies negative. CBC: White count of 5.6, hematocrit 19.5, platelets of 215. Comprehensive metabolic panel, glucose 78, BUN of 49, creatinine 3.4. Sodium 141, potassium 5, chloride of 108, HCO3 22, calcium 9 , total protein 6.1, albumin 2.1. Bilirubin 0.3, alkaline phosphatase 112, AST of 15, ALT of 13, BNP of 120. Urinalysis shows greater than 100 white cells per high-power field and positive leukocyte esterase and negative nitrite.EKG shows a sinus bradycardia with a first-degree block and a right bundle branch block. Chest x-ray shows cardiomegaly with mild chronic obstructive pulmonary disease changes. IMPRESSION: 1. This is a 66-year-old female with known severe anemia, who is going to get a transfusion later on today, who presents to the emergency department after falling out of bed and some mental status changes. 2. Low blood sugar, which she has responded well to some IV fluids with glucose. 3. Mild chronic obstructive pulmonary disease exacerbation 4. Chronic renal failure 5. Right above-knee amputation, recent 6. History of tobacco use, recent quit PLAN: 1. We will transfuse her 2 units of packed red blood cells. 2. Treat with diuretics after transfusion. 3. Monitor her renal function. 4. We will treat with ceftriaxone for urinary tract infection as well as chronic obstructive pulmonary disease, mild. 5. Inhalation treatments. 6. Monitor her postoperative hematocrit. 7. Telemetry. 8. Plan also to discharge her home probably within 24-48 hours, even though she has got multiple medical problems and is ill, she essentially was discharged from her last institution to the nursing facility with all of these conditions essentially stable. So after transfusion is done and we are able to document improvement in her blood counts, and if she is stable, likely she can be discharged back to senior care facility.
--- NOTE | 2017-01-16 07:38 | DIAGNOSTIC IMAGING REPORT ---
PROCEDURE: XR CHEST 1 VIEW INDICATION: SHORTNESS OF BREATH TECHNIQUE: Single view chest. 0400 hours COMPARISON: None. FINDINGS: The heart is moderately enlarged. Moderate aortic arch atherosclerosis. No central venous congestion. Strandy vertebral opacity in the retrocardiac region. Surgical parenchymal stranding in the medial right middle lobe. No pleural effusion or pneumothorax. Intact osseous structures. IMPRESSION: 1. Moderate cardiomegaly without radiographic evidence of CHF. 2. Retrocardiac and right middle lobe vertical opacities, likely atelectasis no underlying infection is not excluded. Correlate clinically.
[2017-01-16] MEDS ORDERED: ATORVASTATIN CA20 MG PO (09:58)
[2017-01-16] MEDS ORDERED: AMLODIPINE BESY10 MG PO (09:58)
[2017-01-16] MEDS ORDERED: ASCORBIC ACID500 MG PO (09:58)
[2017-01-16] MEDS ORDERED: TYLENOL325 MG PO (09:58)
[2017-01-16] MEDS ORDERED: DULCOLAX10 MG PR (09:59)
[2017-01-16] MEDS ORDERED: VITAMIN D2400 UNIT (09:59)
[2017-01-16] MEDS ORDERED: FOLIC ACID1 MG PO (10:03)
[2017-01-16] MEDS ORDERED: FERROUS SULFAT325 M1 PO (10:03)
[2017-01-16] MEDS ORDERED: LANTUS SOL100 UNITS/ SC (10:04)
[2017-01-16] MEDS ORDERED: GABAPENTIN100 MG PO (10:04)
[2017-01-16] MEDS ORDERED: HUMALOG100 MG/ML (10:04)
[2017-01-16] MEDS ORDERED: MELATONIN3 MG PO (10:05)
[2017-01-16] MEDS ORDERED: LABETALOL HCL100 MG PO (10:05)
[2017-01-16] MEDS ORDERED: EFFEXOR25 MG PO (10:06)
[2017-01-16] MEDS ORDERED: PANTOPRAZOLE SO40 MG PO (10:06)
[2017-01-16] MEDS ORDERED: SENNA-LAX8.6 MG PO (10:06)
[2017-01-16] MEDS ORDERED: MILK OF MA400 MG/5 M PO (10:06)
[2017-01-17 02:09] VITALS: BP 168/61
[2017-01-17 06:28] VITALS: BP 161/73
[2017-01-17 11:53] VITALS: BP 169/71
[2017-01-17 14:52] VITALS: BP 148/64
[2017-01-17 18:53] VITALS: BP 162/79
--- NOTE | 2017-01-17 19:27 | Progress Note ---
Subjective General Patient seen and examined. Patient has no complaints at the moment. Upon speaking to the daughter patient has been recently more confused than usual. Patient is otherwise stable. Constitutional Weakness, Malaise. Denies: Fever, Chills, Sweats, Other. ENT Denies: Ear Pain, Ear Discharge, Nose Pain, Nasal Discharge, Nasal Congestion, Mouth Pain, Mouth Swelling, Throat Pain, Throat Swelling, Other. Respiratory Denies: Cough, Dry, SOB w/exertion, Wheezing, Hemoptysis, Pleuritic Pain, Sputum , Other. Cardiovascular Denies: Chest Pain, Palpitations, Orthopnea, PND, Edema, Light-headedness, Other. Gastrointestinal Other (dark stools ). Denies: Nausea, Vomiting, Abdominal Pain, Diarrhea, Constipation, Melena, Hematochezia. Genitourinary Denies: Dysuria, Frequency, Incontinence, Hematuria, Retention, Other. Musculoskeletal Denies: Neck Pain, Shoulder Pain, Arm Pain, Back Pain, Hand Pain, Leg Pain, Foot Pain, Other. Skin Denies: Rash, Lesions, Jaundice, Bruising, Other. Neurological Denies: Weakness, Numbness, Incoordination, Change in speech, Confusion, Seizures, Other. Physical Exam Vital Signs / I&Os Vital Signs Date Time Temp Pulse Resp B/P Pulse O2 O2 Flow FiO2 Ox Delivery Rate 01/18 1622 98.2 101 21 99/77 98 Nasal 2.0 Cannula 01/18 1400 2.0 01/18 1400 158/67 01/18 1004 98.1 90 20 158/67 97 Nasal 2.0 Cannula 01/18 0950 2.0 01/18 0839 92 01/18 0800 Nasal 3.0 Cannula 01/18 0643 98.2 89 20 167/77 94 Room Air 3.0 01/18 0641 169/77 01/18 0254 3.0 01/18 0223 98.8 85 16 105/62 93 Room Air 01/17 2229 98.4 95 19 160/72 94 Room Air 01/17 2138 97 01/17 2136 171/77 03 1945 Room Air 01/17 1914 3.0 01/17 1853 98.8 90 22 162/79 93 Room Air I&O 01/17 0800 01/17 1600 01/18 0000 Intake Total 1124 500 Output Total 1200 1350 450 Balance -76 -850 -450 General Appearance Alert, Oriented X3, No acute distress HEENT Atraumatic, PERRLA, Moist mucous membranes Lungs Clear to auscultation, Normal air movement Cardiovascular Normal S1 and S2, - irregularly irregular rhythm Abdomen Soft, No tenderness, No rebound, No masses (s) Extremities No clubbing, Normal pulses, No tenderness, Strength = upper ext's, Strength = lower ext's, - left aka looks appropriate with appropriate healing Skin - surgical wound looks approrpiate Neurological Normal tone, Sensation intact, Cranial nerves intact, Strength 5/5 x4 ext's, No lateralizing signs Psych/Mental Status Confused LAB Results Laboratory Tests 01/18 0410 Chemistry Plasma Sodium (136 - 145 mmol/L) 141 Plasma Potassium (3.5 - 5.1 mmol/L) 4.3 Plasma Chloride (98 - 107 mmol/L) 107 CO2 (Enzymatic) (21 - 32 mmol/L) 21 BUN (7 - 18 mg/dL) 45 Creatinine (0.6 - 1.3 mg/dL) 2.9 Est GFR ( Amer) (mL/min) 20.91 Est GFR (Non-Af Amer) (mL/min) 17.26 Glucose (70 - 110 mg/dL) 128 Plasma Calcium (8.5 - 10.1 mg/dL) 8.6 Total Bilirubin (0.0 - 1.0 mg/dL) 0.3 AST (15 - 37 U/L) 9 ALT (12 - 78 U/L) 11 Alkaline Phosphatase (46 - 116 U/L) 100 Total Protein (6.4 - 8.2 g/dL) 5.8 Albumin (3.3 - 5.0 g/dL) 2.1 Hematology WBC (4.5 - 11.5 K/uL) 9.8 RBC (4.00 - 5.20 M/uL) 2.92 Hgb (12.0 - 16.0 gm/dL) 8.6 Hct (36.0 - 46.0 %) 26.9 MCV (80 - 100 fL) 92 MCH (26 - 34 pg) 30 RDW (11.6 - 14.8 %) 20.4 Neut % (Auto) (50 - 75 %) 88.3 Lymph % (Auto) (25 - 40 %) 7.7 [place] % (Auto) (3 - 14 %) 3.9 Eos % (Auto) (0 - 4 %) 0 Baso % (Auto) (0 - 2 %) 0.1 Plt Count, EDTA (150 - 400 K/uL) 254 RBC Morphology (31308 A) HYPOCHROMIA +2 PUBS MCHC (31 - 37 g/dL) 32 Assessment and Plan Problem List 1. UTI (urinary tract infection) Plan - will treat UTI with ceftriaxone - will await sensitivities - urine looks much more improved than the days prior - will continue to monitor cbc 2. COPD (chronic obstructive pulmonary disease) Plan - stable - no evidence of poor air exchange - c/w current medication 3. Anemia Plan - secondary to lower GI losses - pt had an upper endoscopy 2 months back which was free of pathology - will make arrangements for colonoscopy 4. Diabetes Plan - pt initially had hypoglycemia - pt has evidence
[2017-01-17 22:29] VITALS: BP 160/72
[2017-01-18] VITALS (7 sets, daily range): BP systolic 99–167; BP diastolic 62–77
--- NOTE | 2017-01-18 18:35 | Progress Note ---
Subjective General Patient seen and examined Constitutional Denies: Fever, Chills, Sweats, Weakness, Malaise, Other. ENT Denies: Ear Pain, Ear Discharge, Nose Pain, Nasal Discharge, Nasal Congestion, Mouth Pain, Mouth Swelling, Throat Pain, Throat Swelling, Other. Respiratory SOB w/exertion. Denies: Cough, Dry, Wheezing, Hemoptysis, Pleuritic Pain, Sputum, Other. Cardiovascular Denies: Chest Pain, Palpitations, Orthopnea, PND, Edema, Light-headedness, Other. Gastrointestinal Denies: Nausea, Vomiting, Abdominal Pain, Diarrhea, Constipation, Melena, Hematochezia, Other. Musculoskeletal Denies: Neck Pain, Shoulder Pain, Arm Pain, Back Pain, Hand Pain, Leg Pain, Foot Pain, Other. Skin Denies: Rash, Lesions, Jaundice, Bruising, Other. Neurological Denies: Weakness, Numbness, Incoordination, Change in speech, Confusion, Seizures, Other. Physical Exam Vital Signs / I&Os Vital Signs Date Time Temp Pulse Resp B/P Pulse O2 O2 Flow FiO2 Ox Delivery Rate 01/20 1353 98.2 85 14 158/69 01/20 1033 98.2 85 14 158/69 96 Room Air 0.0 01/20 0907 98 01/20 0800 2.0 01/20 0759 Nasal 2.0 Cannula 01/20 0525 98.1 86 18 164/73 97 Nasal 2.0 Cannula 01/20 0524 164/73 01/20 0411 98.4 86 18 161/69 97 Nasal 2.0 Cannula 01/20 0244 2.0 01/19 2311 98.4 82 19 156/69 98 Nasal 2.0 Cannula 01/19 2141 160/70 01/19 2053 95 01/19 1948 Nasal 2.0 Cannula 01/19 1937 2.0 01/19 1817 98.4 88 19 156/67 96 Nasal 2.0 Cannula 01/19 1524 2.0 01/19 1452 164/70 01/19 1449 97.9 90 24 164/70 98 Nasal 2.0 Cannula I&O 01/19 0800 01/19 1600 01/20 0000 Intake Total 589 350 240 Output Total 350 575 400 Balance 239 -225 -160 General Appearance Alert, Oriented X3, No acute distress HEENT Atraumatic, PERRLA, Moist mucous membranes Lungs Clear to auscultation, Normal air movement Cardiovascular Regular rate and rhythm, Normal S1 and S2, No murmurs, gallops, rubs Abdomen Soft, No guarding, No rebound, No masses, No hepatosplenomegaly Extremities No edema, Normal pulses, No tenderness, Strength = upper ext's, Strength = lower ext's Skin No Breakdown, No Significant Lesions Neurological Normal speech, Normal tone, Cranial nerves intact, Strength 5/5 x4 ext's, No lateralizing signs LAB Results Laboratory Tests 01/20 0410 Chemistry Plasma Sodium (136 - 145 mmol/L) 138 Plasma Potassium (3.5 - 5.1 mmol/L) 4.2 Plasma Chloride (98 - 107 mmol/L) 106 CO2 (Enzymatic) (21 - 32 mmol/L) 20 BUN (7 - 18 mg/dL) 47 Creatinine (0.6 - 1.3 mg/dL) 2.8 Est GFR ( Amer) (mL/min) 21.78 Est GFR (Non-Af Amer) (mL/min) 17.97 Glucose (70 - 110 mg/dL) 151 Plasma Calcium (8.5 - 10.1 mg/dL) 8.5 Total Bilirubin (0.0 - 1.0 mg/dL) 0.2 AST (15 - 37 U/L) 10 ALT (12 - 78 U/L) 12 Alkaline Phosphatase (46 - 116 U/L) 91 Total Protein (6.4 - 8.2 g/dL) 5.6 Albumin (3.3 - 5.0 g/dL) 2.2 Hematology WBC (4.5 - 11.5 K/uL) 7.5 RBC (4.00 - 5.20 M/uL) 2.93 Hgb (12.0 - 16.0 gm/dL) 8.9 Hct (36.0 - 46.0 %) 27.0 MCV (80 - 100 fL) 92 MCH (26 - 34 pg) 31 RDW (11.6 - 14.8 %) 20.0 Neut % (Auto) (50 - 75 %) 87.7 Lymph % (Auto) (25 - 40 %) 8.1 [place] % (Auto) (3 - 14 %) 4.2 Eos % (Auto) (0 - 4 %) 0 Baso % (Auto) (0 - 2 %) 0 Plt Count, EDTA (150 - 400 K/uL) 238 PUBS MCHC (31 - 37 g/dL) 33 Assessment and Plan Problem List 1. UTI (urinary tract infection) Plan - will c/w antibiotics - urine culture grew out diptheroids - will await sensitivies 2. Diabetes Plan blood sugars have been stable - will continue with current regimen 3. COPD (chronic obstructive pulmonary disease) Plan - stable no difficulty breathing - c/w daily medications 4. Anemia Plan - going for colonoscopy tomorrow - will await results
[2017-01-19] VITALS (7 sets, daily range): BP systolic 153–171; BP diastolic 64–79
--- NOTE | 2017-01-19 13:25 | OPERATIVE REPORT ---
DATE OF SURGERY: 01/19/2017 SURGEON: Diane Pennington III, MD ENVIRONMENTAL CONFLICT MANAGER: None. PREOPERATIVE DIAGNOSIS: 1. Anemia, unknown etiology POSTOPERATIVE DIAGNOSES: 1. Extensive colonic diverticulosis 2. Upper gastrointestinal endoscopy hiatal hernia with superficial gastric erosions of the mucosa within the hiatal hernia PROCEDURES PERFORMED: 1. Colonoscopy 2. Esophagogastroduodenoscopy ANESTHESIA: TIVA. INDICATIONS: A 66-year-old male admitted with weakness, lightheadedness. Colonoscopy in 2009, diagnoses of diverticulosis. Admission hematocrit 19.5, transfused 2 units , hematocrit 26.9, scheduled for colonoscopy if negative upper GI endoscopy findings. SURGICAL FINDINGS: The patient did not have a particularly good prep. However, we were able to identify the cecum, which had a lot of debris and undigested medications , i.e., pills. She had scattered diverticula of the right colon, transverse colon, descending colon; however, there was extensive sigmoid diverticulosis and rectal vault diverticulosis as well. Rectal vault, however, appeared grossly normal. On upper GI endoscopy, normal-appearing duodenum and duodenal bulb. The gastric mucosal pattern appeared grossly normal; however, the patient did have a small to moderate-sized hiatal hernia. The superficial erosions within the hiatal hernia were noted. The esophagus appeared grossly normal. SURGICAL TECHNIQUE: The patient was brought to operating room and placed in the left lateral decubitus position, where she was administered TIVA and monitored closely by anesthesia. After proper anesthesia had taken effect, a digital rectal examination revealed no masses or stenosis. This was followed by the passage of a fiberoptic video flexible Olympus colonoscope which, with some difficulty, negotiated to the cecum, secondary to the poor prep. This necessitated irrigation and aspiration the entire length, practically. No obvious sites of bleeding were identified. The cecum was identified by anatomical landmarks and anterior abdominal wall ballottement. On withdrawing the scope, the aforementioned findings were noted. The scope was withdrawn, retroflexed, good view of the rectal vault obtained. No other pathology identified. The scope was completely withdrawn. The patient tolerated the procedure well. With the patient still lying in the left lateral decubitus position, her posterior pharynx was sprayed with Cetacaine spray. An Olympus fiberoptic video flexible upper GI endoscope was passed down the patient's posterior pharynx. The esophagus intubated under direct visualization. The scope passed easily down the esophagus, through the EG junction, which was approximately at 40 cm, through the hiatal hernia, into the gastric lumen and eventually into the second and third portion of the duodenum. On withdrawing the scope, the aforementioned findings noted. The scope was withdrawn into the gastric lumen and retroflexed with a good view of the cardia, fundus, and EG junction from below, with the aforementioned findings noted. No attempt biopsies were made. The scope was withdrawn into the esophagus, where the hiatal hernia was visualized as well as the superficial gastric erosions. They were not bleeding. The scope was withdrawn. The patient tolerated the procedure well and was transferred to the recovery room in stable condition. There were no intraoperative or anesthetic complications.
--- NOTE | 2017-01-19 19:01 | Progress Note ---
Subjective General Patient seen and examined. Patient was prepped for colonoscopy and tolerated the procedure without any difficulty. Patient otherwise is doing well. Constitutional Denies: Fever, Chills, Sweats, Weakness, Malaise, Other. ENT Denies: Ear Pain, Ear Discharge, Nose Pain, Nasal Discharge, Nasal Congestion, Mouth Pain, Mouth Swelling, Throat Pain, Throat Swelling, Other. Respiratory Denies: Cough, Dry, SOB w/exertion, Wheezing, Hemoptysis, Pleuritic Pain, Sputum , Other. Cardiovascular Denies: Chest Pain, Palpitations, Orthopnea, PND, Edema, Light-headedness, Other. Gastrointestinal Denies: Nausea, Vomiting, Abdominal Pain, Diarrhea, Constipation, Melena, Hematochezia, Other. Genitourinary Denies: Dysuria, Frequency, Incontinence, Hematuria, Retention, Other. Musculoskeletal Denies: Neck Pain, Shoulder Pain, Arm Pain, Back Pain, Hand Pain, Leg Pain, Foot Pain, Other. Skin Denies: Rash, Lesions, Jaundice, Bruising, Other. Neurological Denies: Weakness, Numbness, Incoordination, Change in speech, Confusion, Seizures, Other. Physical Exam Vital Signs / I&Os Vital Signs Date Time Temp Pulse Resp B/P Pulse O2 O2 Flow FiO2 Ox Delivery Rate 01/19 1817 98.4 88 19 156/67 96 Nasal 2.0 Cannula 01/19 1524 2.0 01/19 1452 164/70 01/19 1449 97.9 90 24 164/70 98 Nasal 2.0 Cannula 01/19 1257 82 20 168/71 99 Nasal 2.0 Cannula 01/19 1235 97.9 80 18 143/70 94 Nasal 2.0 Cannula 01/19 1230 80 18 145/58 95 Nasal 2.0 Cannula 01/19 1225 79 21 148/62 95 Nasal 2.0 Cannula 01/19 1220 80 18 142/60 93 Nasal 2.0 Cannula 01/19 1215 80 16 142/60 95 Nasal 4.0 Cannula 01/19 1211 78 20 137/58 100 15.0 Non-Rebreather Mask 01/19 1207 98.4 80 17 135/57 99 15.0 Non-Rebreather Mask 01/19 1020 97.9 19 20 156/77 96 Room Air 01/19 0818 72 01/19 0800 2.0 01/19 0708 97.7 93 28 171/79 96 Nasal 2.0 Cannula 01/19 0552 164/70 01/19 0256 98.4 85 20 153/64 97 Nasal 2.0 Cannula 01/182 158/68 01/183 97.5 90 18 158/68 98 Nasal 2.0 Cannula 01/18 2049 95 159/67 01/18 2048 95 01/19 2012 Nasal 2.0 Cannula 01/18 194 2.0 I&O 01/18 0800 01/18 1600 01/19 0000 Intake Total 1298 296 8829 Output Total 1200 400 750 Balance 65 200 2368 General Appearance Alert, Oriented X3, No acute distress HEENT Atraumatic, PERRLA, EOMI, Moist mucous membranes Lungs Clear to auscultation, Normal air movement Cardiovascular Regular rate and rhythm, No murmurs, gallops, rubs Abdomen Soft, No tenderness, No rebound, No masses, No hepatosplenomegaly Extremities No clubbing, No edema, Normal pulses, Strength = upper ext's, Strength = lower ext's Skin No Breakdown, No Significant Lesions LAB Results Laboratory Tests 01/19 0420 Chemistry Plasma Sodium (136 - 145 mmol/L) 133 Plasma Potassium (3.5 - 5.1 mmol/L) 4.1 Plasma Chloride (98 - 107 mmol/L) 106 CO2 (Enzymatic) (21 - 32 mmol/L) 21 BUN (7 - 18 mg/dL) 44 Creatinine (0.6 - 1.3 mg/dL) 2.9 Est GFR ( Amer) (mL/min) 20.91 Est GFR (Non-Af Amer) (mL/min) 17.26 Glucose (70 - 110 mg/dL) 198 Plasma Calcium (8.5 - 10.1 mg/dL) 8.4 Total Bilirubin (0.0 - 1.0 mg/dL) 0.2 AST (15 - 37 U/L) 9 ALT (12 - 78 U/L) 12 Alkaline Phosphatase (46 - 116 U/L) 107 Total Protein (6.4 - 8.2 g/dL) 5.7 Albumin (3.3 - 5.0 g/dL) 2.2 Hematology WBC (4.5 - 11.5 K/uL) 9.1 RBC (4.00 - 5.20 M/uL) 2.78 Hgb (12.0 - 16.0 gm/dL) 8.3 Hct (36.0 - 46.0 %) 25.5 MCV (80 - 100 fL) 92 MCH (26 - 34 pg) 30 RDW (11.6 - 14.8 %) 19.8 Neut % (Auto) (50 - 75 %) 89.6 Lymph % (Auto) (25 - 40 %) 6.2 [place] % (Auto) (3 - 14 %) 4.2 Eos % (Auto) (0 - 4 %) 0 Baso % (Auto) (0 - 2 %) 0 Plt Count, EDTA (150 - 400 K/uL) 266 PUBS MCHC (31 - 37 g/dL) 32 Assessment and Plan Problem List 1. Anemia Plan - pt had guiac positive stools - pt had a colonoscopy today which revealed gastritis and hiatal hernia and frequent diverticula - no active bleeding noted - pt will remain on ppis and stool softeners - will continue to trend cbc 2. COPD (chronic obstructive pulmonary disease) Plan - pt does not have any copd exacerbation - will c/w home medications 3. UTI (urinary tract infection) Plan - will c/w anbitiotics - pt will require a weeks course given initial presentation of urine 4. Diabetes Plan - will c/w carb consistent diet - will c/w sliding scale coverage
[2017-01-20 04:11] VITALS: BP 161/69
[2017-01-20 05:25] VITALS: BP 164/73
[2017-01-20 10:33] VITALS: BP 158/69
[2017-01-20] MEDS ORDERED: IPRATROPIUM BROMIDE/ IN (13:37)
[2017-01-20] MEDS ORDERED: SMZ-TMP DS1 TAB PO (13:38)
--- NOTE | 2017-01-20 13:44 | Provider's Discharge Care Plan ---
Problem, Goal, Plan Problem List 1. COPD (chronic obstructive pulmonary disease) Instructions: Take meds as directed 2. UTI (urinary tract infection) Instructions: - take antibiotics as prescribed 3. Anemia Instructions: -secondary to blood loss in the gi tract from diverticulitis and gastritis - take new medications as prescribed
--- NOTE | 2017-01-20 13:45 | Discharge Summary ---
Discharge Summary Report Admit Date 01/18/17 Discharge Date 01/20/17 Admission Diagnosis uti and anemia Discharge Diagnosis uti and anemia Brief History The patient is a resident of [facility] short-term post [id number] amputation, right side, who had chronic renal failure with creatinine around 3 baseline, also admitted with a hematocrit of 22 to the facility and a known history of gastrointestinal bleed. During the stay at the facility, her hematocrit slowly dropped and went from 22 to 19. She was not having any significant symptoms and the decision was to have a transfusion for the day of admission. However, in the night prior, she had rolled out of bed and was acting a little funny and so the decision was made to send her to the emergency department for further evaluation. In the emergency department, she was found to have lung sounds consistent with some mild chronic obstructive pulmonary disease exacerbation, severe anemia as noted prior , low blood sugar, abnormal labs related to her chronic renal disease. Hospital Course Patient was admitted evaluated for anemia and urinary tract infection. Patient was started on treatment for the UTI and information was collected regarding the patient anemia. Before the complete work up could be complete the patient had a large dark bowel which was heme positive. Patient was evaluated and seen to have dropping hemoglobin. Patient underwent colonoscopy and upper endoscopy. Patient was seen to have gastritis of the hiatal hernia as well as diverticula without any active bleeding. Patient will be kept on acid reducing medications and medications for constipation. Patient will follow up with her primary care provider which will need to do repeat blood work. Patient currently is stable for discharge. General Appearance Alert, Oriented X3, No acute distress HEENT PERRLA, Mucous membran moist/pink Lungs Normal air movement Cardiovascular Normal S1, Normal S2, No murmurs Abdomen No tenderness, No hepatospenomegaly Skin No Breakdown Neurological Normal speech, Normal tone, Sensation intact, Reflexes 2+ Lab/Imaging Laboratory Tests 01/20 0410 Chemistry Plasma Sodium (136 - 145 mmol/L) 138 Plasma Potassium (3.5 - 5.1 mmol/L) 4.2 Plasma Chloride (98 - 107 mmol/L) 106 CO2 (Enzymatic) (21 - 32 mmol/L) 20 BUN (7 - 18 mg/dL) 47 Creatinine (0.6 - 1.3 mg/dL) 2.8 Est GFR ( Amer) (mL/min) 21.78 Est GFR (Non-Af Amer) (mL/min) 17.97 Glucose (70 - 110 mg/dL) 151 Plasma Calcium (8.5 - 10.1 mg/dL) 8.5 Total Bilirubin (0.0 - 1.0 mg/dL) 0.2 AST (15 - 37 U/L) 10 ALT (12 - 78 U/L) 12 Alkaline Phosphatase (46 - 116 U/L) 91 Total Protein (6.4 - 8.2 g/dL) 5.6 Albumin (3.3 - 5.0 g/dL) 2.2 Hematology WBC (4.5 - 11.5 K/uL) 7.5 RBC (4.00 - 5.20 M/uL) 2.93 Hgb (12.0 - 16.0 gm/dL) 8.9 Hct (36.0 - 46.0 %) 27.0 MCV (80 - 100 fL) 92 MCH (26 - 34 pg) 31 RDW (11.6 - 14.8 %) 20.0 Neut % (Auto) (50 - 75 %) 87.7 Lymph % (Auto) (25 - 40 %) 8.1 [place] % (Auto) (3 - 14 %) 4.2 Eos % (Auto) (0 - 4 %) 0 Baso % (Auto) (0 - 2 %) 0 Plt Count, EDTA (150 - 400 K/uL) 238 PUBS MCHC (31 - 37 g/dL) 33 Discharge Instructions/Meds - take meds as prescribed - follow up with your pmd in 2 weeks
[2017-01-20 14:49] VITALS: BP 163/69
[2017-01-20] MEDS ORDERED: NYSTOP100000 MG TOP (14:59)
== END 2017-01-20 16:00 | DRG 683 ==
LOC: ED SRH 03:23 → TRANS SRH 04:54 → CC SRH 04:54
PROVIDERS: ADMIT Family Medicine
PROC: 30233N1 Transfusion of Nonautologous Red Blood Cells into Peripheral Vein, Percutaneous Approach (ICD-10-PCS; principal; 2017-01-16)
PROC: 0T9B70Z Drainage of Bladder with Drainage Device, Via Natural or Artificial Opening (ICD-10-PCS; 2017-01-16)
PROC: 0DJD8ZZ Inspection of Lower Intestinal Tract, Via Natural or Artificial Opening Endoscopic (ICD-10-PCS; 2017-01-19)
PROC: 0DJ08ZZ Inspection of Upper Intestinal Tract, Via Natural or Artificial Opening Endoscopic (ICD-10-PCS; 2017-01-19)
DX: N18.4 Chronic kidney disease, stage 4 (severe) (principal); D63.1 Anemia in chronic kidney disease; D50.0 Iron deficiency anemia secondary to blood loss (chronic); R19.5 Other fecal abnormalities; N39.0 Urinary tract infection, site not specified; J44.1 Chronic obstructive pulmonary disease with (acute) exacerbation; E11.22 Type 2 diabetes mellitus with diabetic chronic kidney disease; I12.9 Hypertensive chronic kidney disease with stage 1 through stage 4 chronic kidney disease, or unspecified chronic kidney disease; B96.89 Other specified bacterial agents as the cause of diseases classified elsewhere; E11.649 Type 2 diabetes mellitus with hypoglycemia without coma; K29.70 Gastritis, unspecified, without bleeding; K44.9 Diaphragmatic hernia without obstruction or gangrene; K57.30 Diverticulosis of large intestine without perforation or abscess without bleeding; E11.51 Type 2 diabetes mellitus with diabetic peripheral angiopathy without gangrene; R41.0 Disorientation, unspecified; Z89.611 Acquired absence of right leg above knee; Z91.81 History of falling; L89.151 Pressure ulcer of sacral region, stage 1; Z79.4 Long term (current) use of insulin

== ENCOUNTER 2017-01-29 08:57 | Outpatient (CLI) | payer OTHER ==
[~2017-01-29] VITALS: Ht 160 cm; Wt 97.2 kg
[2017-01-29] VITALS (9 sets, daily range): BP systolic 121–157; BP diastolic 66–91
[~2017-01-29 08:57] MED LIST: AMLODIPINE BESY10 MG PO; ASCORBIC ACID500 MG PO; ATORVASTATIN CA20 MG PO; DULCOLAX10 MG PR; EFFEXOR25 MG PO; FERROUS SULFAT325 M1 PO; FOLIC ACID1 MG PO; GABAPENTIN100 MG PO; HUMALOG100 MG/ML; IPRATROPIUM BROMIDE/ IN; LABETALOL HCL100 MG PO; LANTUS SOL100 UNITS/ SC; MELATONIN3 MG PO; MILK OF MA400 MG/5 M PO; NYSTOP100000 MG TOP; PANTOPRAZOLE SO40 MG PO; SENNA-LAX8.6 MG PO; SMZ-TMP DS1 TAB PO; TYLENOL325 MG PO; VITAMIN D2400 UNIT
--- NOTE | 2017-01-29 17:34 | NUR ---
PT HAD A VERY LARGE DARK GREEN BM, BUTTOCKS SKIN CONTAINS NON-BLANCHABLE ERYTHEMA. APPLIED BARRIER CREAM. WCTM.
--- NOTE | 2017-01-29 19:23 | NUR ---
PT IS NOW IN WC, DRESSED AND AWAITING TRANSPORTATION TO [facility]. VSS, NO SOB, NAUSEA, ALLERGIC SYMPTOMS OR PAIN. DECREASED DROWSINESS AND MORE COMMUNICATION FROM PT. CHRISTINA HAT FORMING MACHINE OPERATOR WILL ESCORT PT TO ENTRANCE WHEN TRANSPORTATION ARRIVES.
== END 2017-01-29 19:47 | disposition home or self-care (01) ==
LOC: LAB SRH 08:57 → SDP SRH 08:57 → ACUTE2 SRH 09:51 → SDP SRH 19:47
PROC: 30233N1 Transfusion of Nonautologous Red Blood Cells into Peripheral Vein, Percutaneous Approach (ICD-10-PCS; principal; 2017-01-29)
DX: D64.9 Anemia, unspecified (principal)

== ENCOUNTER 2017-04-15 08:50 | Inpatient (IN) | payer OTHER ==
[~2017-04-15] VITALS: Ht 160 cm; Wt 88.9 kg
--- NOTE | 2017-04-15 13:58 | ED CLINICAL REPORT ---
Clinical Report - Physicians/Mid Levels [facility] [address] [place] [address] 04/15/2017 8:51 Patient: ANDRE DONATO Time Seen: 09:00; initial patient contact. Arrived- By ambulance. Historian- patient and EMS personnel. HISTORY OF PRESENT ILLNESS Chief Complaint: DECREASED MENTAL STATUS and LOW BLOOD SUGAR. This started today and patient was last known well (last night). The patient is described as having decreased responsiveness. detention resident. No change in diabetic routine. Prior to arrival, the dextro stick was low. The patient has had weakness, and numbness. She has had difficulty walking. No recent fall. Usually is alert and oriented X3 and usually has normal mobility. Similar symptoms previously: None. Recent medical care: Not recently seen/assessed. REVIEW OF SYSTEMS No fever, difficulty breathing, nausea, vomiting or chills. No chest pain or difficulty breathing. She has had fatigue and altered mental status. All systems otherwise negative, except as recorded above. PAST HISTORY ( ( Fall. Peripheral Vascular Disease. Diabetes Mellitus Type 2. Gastroesophageal Reflux. Hypertension. Chronic kidney disease stage 4 Depression. Hyperlipidemia. Encephalopathy. UTI - Urinary Tract Infection. Rt AKA.).). Medications: HydrALAZINE HCl Injection. Acetaminophen Oral. Amlodipine Besy-Benazepril HCl Oral 10mg, daily. Ascorbic Acid Oral (Tablet Chewable 500 mg) 1 tablet, daily. Atorvastatin Calcium Oral (Tablet 20 mg) 1 tablet, daily. Dulcolax Rectal (Suppository 10 mg) 1 suppository, daily as needed. Ergocalciferol Oral. Ferrous Sulfate Oral 325 mg, 3x a day. Folic Acid Oral (Tablet 1 mg) 1 tablet, daily. Insulin Glargine Subcutaneous. Insulin Lispro (Human) Subcutaneous. Labetalol HCl Oral (Tablet 100 mg) 1 tablet, 2x a day. Melatonin Oral (Tablet 3 mg) 1 tablet, daily. Milk of Magnesia Oral 1200mg/15ml, daily as needed. Pantoprazole Sodium Oral. Senna Laxative Oral (Tablet 8.6 mg) 1 tablet, daily. Venlafaxine HCl ER Oral 75mg, daily. Allergies: Codeine. SOCIAL HISTORY Former smoker, end date 01/2017. No alcohol use or drug use. ADDITIONAL NOTES The nursing notes have been reviewed. PHYSICAL EXAM Vital Signs: 04/15/2017 08:55 BP: 148/63. HR: 61. RR: 18. O2 saturation: 98%. Temp: 90.6 F. Gomez-Giordano pain scale: 6/10. Have been reviewed. Hypertensive. Heart rate normal. Respiratory rate normal. Hypothermic. Oxygen saturation normal. Appearance: No acute distress. Lethargic. Head: Head atraumatic. ENT: Dry mucous membranes present. CVS: Normal heart rate and rhythm. Heart sounds normal. Respiratory: No respiratory distress. Breath sounds normal. Abdomen: Soft and nontender. No organomegaly. Skin: Moderate pallor. Extremities: No lower extremity edema. Neuro: Moderately altered mental status: lethargic. LABS, X-RAYS, AND EKG EKG: EKG time: (0900). No acute ischemia. Normal sinus rhythm. Rate: 63. Normal P waves. First-degree atrioventricular block. Wide QRS- intraventricular conduction delay. Normal axis. Normal ST and T waves. Prolonged QTc (483). EKG unchanged when compared with prior EKG. (January 16 2017). The study has been interpreted contemporaneously by me. The study has been independently viewed by me. The EKG appears to be a good tracing. Interpretation time: 0900. Laboratory Tests: UA-Culture if indicated: (KISHAN: 04/15/2017 09:20) ( MsgRcvd 04/15/2017 09:56) Final results Test Result Flag Units (Reference) URINE COLOR YELLOW URINE APPEARANCE TURBID URINE GLUCOSE NEGATIVE (NEGATIVE) URINE BILIRUBIN NEGATIVE (NEGATIVE) URINE KETONE NEGATIVE (NEGATIVE) URINE SPECIFIC GRAVITY 1.020 (1.010-1.030) URINE PH 5.5 (5.0-8.0) URINE PROTEIN 2+ (NEGATIVE) URINE UROBILINOGEN 0.2 EU/dL (0.2-1.0) URINE NITRITE NEGATIVE (NEGATIVE) URINE BLOOD TRACE-INTACT (NEGATIVE) URINE LEUK ESTERASE POSITIVE (NEGATIVE) URINE RBC 3-5 rbc/hpf (0-1) URINE WBC >100 wbc/hpf (0-1) URINE EPITHELIAL CELLS >15 EPI/hpf (0-5) URINE BACTERIA MANY (4+) (NONE SEEN) URINE COMMENT CULTURE INDICATED URINE CULTURES ARE SET-UP BASED ON THE FOLLOWING CRITERIA:POSITIVE NITRITEPOSITIVE LEUKOCYTE ESTERASEGREATER THAN 10 WHITE BLOOD CELLSMODERATE (2+) OR GREATER BACTERIA CBC w Diff: (KISHAN: 04/15/2017 09:51) ( [facility] 04/15/2017 10:12) Final results Test Result Flag Units (Reference) WHITE BLOOD COUNT 10.8 K/uL (4.5-11.5) RED BLOOD COUNT 2.59 L M/uL (4.00-5.20) HEMOGLOBIN 7.8 L gm/dL (12.0-16.0) HEMATOCRIT 23.9 L % (36.0-46.0) MEAN CELL VOLUME 92 fL (80-100) MEAN CORPUSCULAR HGB 30 pg (26-34) MEAN CORPUSCULAR HGB CONC 33 g/dL (31-37) RED CELL DISTRIBUTION WIDTH 17.8 H % (11.6-14.8) PLATELET COUNT 218 K/uL (150-400) NEUTROPHIL % 94.2 H % (50-75) LYMPH % 3.7 L % (25-40) MONO % 1.7 L % (3-14) EOSINOPHIL % 0.3 % (0-4) BASOPHIL % 0.1 % (0-2) [id number]: (KISHAN: 04/15/2017 09:51) ( [facility] 04/15/2017 10:24) Final results Test Result Flag Units (Reference) D-DIMER QUANTITATIVE 2.97 H ug/mLFEU (0.27-0.52) The primary value of this quantitative assay relates toits negative predictive value (i.e. exclusion) of pulmonaryembolism/deep vein thrombosis/DIC.Elevated levels of d-dimer may also occur with:, age, cancer, inflammation, liver disease,post-op, infection, hematoma, coronary disease, peripheralarteriopathy, bleeding disorders and thrombolytic treatment.Results should be correlated with other clinical andradiological data.Testing Methodology: Latex Immunoassay [id number]: (KISHAN: 04/15/2017 09:51) ( [facility] 04/15/2017 10:32) Final results Test Result Flag Units (Reference) LACTIC ACID SEPSIS PROTOCOL 0.5 mmol/L (0.4-2.0) BNP: (KISHAN: 04/15/2017 09:51) ( [facility] 04/15/2017 10:31) Final results Test Result Flag Units (Reference) B-TYPE NATRIURETIC PEPTIDE 133 H pg/ml (5-100) CHEM 13 PANEL: (KISHAN: 04/15/2017 09:51) ( [facility] 04/15/2017 10:35) Final results Test Result Flag Units (Reference) GLUCOSE 59 L mg/dL (70-110) BUN 84 *H mg/dL (7-18) CRITICAL RESULTS CALLEDCalled to YOLA CHAIM RN04/15/17 1033Were 2 patient identifiers used? YWas the result read back? Y CREATININE 4.8 H mg/dL (0.6-1.3) Estimated GFR 9.65 mL/min Estimated GFR- 11.69 mL/min Note: Persistent reduction over 3 months in eGFR<60 mL/min/1.73 m2 defines CKD. Patients with eGFR values>=60 mL/min/1.73 m2 may also have CKD if evidence ofpersistent proteinuria. Additional information may be foundat [email or web address]. SODIUM 133 L mmol/L (136-145) POTASSIUM 4.8 mmol/L (3.5-5.1) CHLORIDE 100 mmol/L (98-107) CARBON DIOXIDE 21 mmol/L (21-32) CALCIUM 8.0 L mg/dL (8.5-10.1) TOTAL PROTEIN 5.6 L g/dL (6.4-8.2) ALBUMIN 1.8 L g/dL (3.3-5.0) BILIRUBIN, TOTAL 0.5 mg/dL (0.0-1.0) ALKALINE PHOSPHATASE 97 U/L (46-116) AST (SGOT) 16 U/L (15-37) ALT (SGPT) 7 L U/L (12-78) MAGNESIUM 1.1 L mg/dL (1.8-2.4) CPK 47 U/L (24-260) TROPONIN I <0.05 L ng/mL (0.00-1.5) TROPONIN REFERENCE RANGE:<0.1 NEGATIVE0.1-1.5 INDETERMINANT>1.5 POSITIVE . PROGRESS AND PROCEDURES Critical care performed (80 minutes). Time includes: direct patient care, patient reassessment, coordination of patient care, interpretation of data (laboratory data, pulse oximetry, chest xrays and prior electrocardiograms), review of patient's medical records, medical consultation, family consultation regarding treatment decisions and documentation of patient care. The patient required critical care due to the acute impairment of vital organ systems (cardiovascular, immunologic, hematologic, renal and central nervous system) and a high probability of imminent deterioration. Numerous urgent interventions were required to prevent sudden deterioration. Discussed case with health care provider (call returned 13:14 Julia, will accept pt and see in the ED.). Disposition: Admitted to Acute Care. Condition: good. Admit decision based on need for observation, IV antibiotics and stabilization of condition. CLINICAL IMPRESSION Acute urinary tract infection with cystitis. Chronic anemia associated with chronic renal disease. Severe hypothermia with altered mental status. No hypothermia secondary to immersion or exposure. (Electronically signed by Hubert Pendleton Dr. 04/15/2017 16:35)
--- NOTE | 2017-04-15 13:58 | ED ORDER SUMMARY ---
..... Patient: ANDRE DONATO OrderSheet [facility] VisitID: [id number] [place] [address] 66y, F Registration Date/Time: 04/15/2017 ORDER SHEET Weight: 88.4 kg (stated) Allergies: Codeine GENERAL ORDERS: UA-Culture if indicated Urgent (:04/15/2017 Charlie Morales) (Ack 9:32 LNations ER Tech1) (9:50 LWhalen R.N.) Cardiac Panel Stat (:04/15/2017 Charlie Morales) (Ack 9:32 LNations ER Tech1) (9:50 LWhalen R.N.) BNP Urgent (:04/15/2017 Charlie Morales) (Ack 9:32 LNations ER Tech1) (9:50 LWhalen R.N.) D-Dimer Urgent (:04/15/2017 Charlie Morales) (Ack 9:32 LNations ER Tech1) (9:50 LWhalen R.N.) EKG - ER Stat (:04/15/2017 Charlie Morales) (9:29 LNations ER Tech1) Blood Culture (No) (N/A) Urgent (09:04/15/2017 Charlie Morales) (Ack 9:37 LNations ER Tech1) (9:50 LWhalen R.N.) Lactic Acid for Sepsis Protocol Urgent (09:04/15/2017 Charlie Morales) (Ack 9:37 LNations ER Tech1) (9:50 LWhalen R.N.) PCT (Procalcitonin) Urgent (09:34 04/15/2017 Charlie Morales) (Ack 9:37 LNations ER Tech1) (9:50 LWhalen R.N.) TSH Urgent (13:04/15/2017 Charlie Morales) (Ack 13:15 LNations ER Tech1) (Ack 13:16 IJurca ER Tech1) (13:16 IJurca ER Tech1) Chest 1V Urgent (13:56 04/15/2017 Charlie Morales) (Ack 14:00 LNations ER Tech1) (19:32 LWhalen R.N.) MEDICATION ORDERS: IV FLUIDS: IV Saline Lock (09:26 04/15/2017 Charlie Morales) (9:51 LWhalen R.N.) Ceftriaxone IV 1 gm/50mL (NOW) (10:42 04/15/2017 Charlie Morales) (11:00 LWhalen R.N.) Levofloxacin IV 500 mg/100mL (NOW) (10:43 04/15/2017 Charlie Morales) (10:58 LWhalen R.N.) Magnesium Sulfate IV 2 gm/50mL (HIGH ALERT MEDICATION, NOW, over 2 hours) (10:44 04/15/2017 Charlie Morales) (Ack 11:00 LWhalen R.N.) (12:20 LWhalen R.N.) IV D5W 1/2 NS and KCl 20 mEq : initial bolus none -, then 150 mL/hr for X1 (NOW) (11:14 04/15/2017 Charlie Morales) (11:16 LWhalen R.N.) Demerol IV 25 mg (HIGH ALERT MEDICATION, NOW) (11:57 04/15/2017 Charlie Morales) (12:20 LWhalen R.N.) ORDER SHEET NOTES: [Electronically signed by Hubert Pendleton Dr. (16:35 04/15/2017)] [Electronically signed by Neri Craft R.N. (19:33 04/15/2017)] [Electronically locked/signed by Neri Craft R.N. (19:33 04/15/2017)]
--- NOTE | 2017-04-15 13:58 | ED ORDER SUMMARY ---
..... Patient: ANDRE DONATO OrderSheet [facility] VisitID: [id number] [place] [address] 66y, F Registration Date/Time: 04/15/2017 ORDER SHEET Weight: 88.4 kg (stated) Allergies: Codeine GENERAL ORDERS: UA-Culture if indicated Urgent (:04/15/2017 Charlie Morales) (Ack 9:32 LNations ER Tech1) (9:50 LWhalen R.N.) Cardiac Panel Stat (:04/15/2017 Charlie Morales) (Ack 9:32 LNations ER Tech1) (9:50 LWhalen R.N.) BNP Urgent (:04/15/2017 Charlie Morales) (Ack 9:32 LNations ER Tech1) (9:50 LWhalen R.N.) D-Dimer Urgent (:04/15/2017 Charlie Morales) (Ack 9:32 LNations ER Tech1) (9:50 LWhalen R.N.) EKG - ER Stat (:04/15/2017 Charlie Morales) (9:29 LNations ER Tech1) Blood Culture (No) (N/A) Urgent (09:04/15/2017 Charlie Morales) (Ack 9:37 LNations ER Tech1) (9:50 LWhalen R.N.) Lactic Acid for Sepsis Protocol Urgent (09:04/15/2017 Charlie Morales) (Ack 9:37 LNations ER Tech1) (9:50 LWhalen R.N.) PCT (Procalcitonin) Urgent (09:34 04/15/2017 Charlie Morales) (Ack 9:37 LNations ER Tech1) (9:50 LWhalen R.N.) TSH Urgent (13:04/15/2017 Charlie Morales) (Ack 13:15 LNations ER Tech1) (Ack 13:16 IJurca ER Tech1) (13:16 IJurca ER Tech1) Chest 1V Urgent (13:56 04/15/2017 Charlie Morales) (Ack 14:00 LNations ER Tech1) (19:32 LWhalen R.N.) MEDICATION ORDERS: IV FLUIDS: IV Saline Lock (09:26 04/15/2017 Charlie Morales) (9:51 LWhalen R.N.) Ceftriaxone IV 1 gm/50mL (NOW) (10:42 04/15/2017 Charlie Morales) (11:00 LWhalen R.N.) Levofloxacin IV 500 mg/100mL (NOW) (10:43 04/15/2017 Charlie Morales) (10:58 LWhalen R.N.) Magnesium Sulfate IV 2 gm/50mL (HIGH ALERT MEDICATION, NOW, over 2 hours) (10:44 04/15/2017 Charlie Morales) (Ack 11:00 LWhalen R.N.) (12:20 LWhalen R.N.) IV D5W 1/2 NS and KCl 20 mEq : initial bolus none -, then 150 mL/hr for X1 (NOW) (11:14 04/15/2017 Charlie Morales) (11:16 LWhalen R.N.) Demerol IV 25 mg (HIGH ALERT MEDICATION, NOW) (11:57 04/15/2017 Charlie Morales) (12:20 LWhalen R.N.) ORDER SHEET NOTES: [Electronically signed by Hubert Pendleton Dr. (16:35 04/15/2017)] [Electronically signed by Neri Craft R.N. (19:33 04/15/2017)] [Electronically locked/signed by Neri Craft R.N. (19:33 04/15/2017)]
--- NOTE | 2017-04-15 13:58 | ED NURSING NOTES ---
Clinical Report - Nurses [facility] [address] [place] [address] 04/15/2017 8:51 [id number] Triage time 08:55 Renato 13 2016. Acuity: LEVEL 2. Chief Complaint: ACTING DIFFERENTLY, BLOOD SUGAR CHECK, WEAKNESS and CONFUSION. ALICE COMA SCORE: Alice Coma Scale: 9- eyes open to pain (2); best verbal response- incoherent speech (2); best motor response- localizes to pain (5). --09:45 Neri Craft R.N. 08:55 04/15/17. BP: 148/63. HR: 61. RR: 18. O2 saturation: 98%. Temp: 90.6 F (rectal). Gomez-Giordano pain scale: 6/10. --09:45 Neri Craft R.N. Weight: 88.4 kg stated. Height/Length: 62 inches Per Patient. BMI: 35.7. --09:38 Neri Craft R.N. Medications Acetaminophen Oral. Amlodipine Besy-Benazepril HCl Oral 10mg, daily. Ascorbic Acid Oral (Tablet Chewable 500 mg) 1 tablet, daily. Atorvastatin Calcium Oral (Tablet 20 mg) 1 tablet, daily. Dulcolax Rectal (Suppository 10 mg) 1 suppository, daily as needed. Ergocalciferol Oral. Ferrous Sulfate Oral 325 mg, 3x a day. Folic Acid Oral (Tablet 1 mg) 1 tablet, daily. Insulin Glargine Subcutaneous. Insulin Lispro (Human) Subcutaneous. Labetalol HCl Oral (Tablet 100 mg) 1 tablet, 2x a day. Melatonin Oral (Tablet 3 mg) 1 tablet, daily. Milk of Magnesia Oral 1200mg/15ml, daily as needed. Pantoprazole Sodium Oral. Senna Laxative Oral (Tablet 8.6 mg) 1 tablet, daily. Venlafaxine HCl ER Oral 75mg, daily. --09:01 Neri Craft R.N. HydrALAZINE HCl Injection. --09:01 Neri Craft R.N. Allergies Codeine. --09:02 Neri Craft R.N. History Arrived by private vehicle. Historian: patient. This started just prior to arrival. ( 911 called for decreased LOC BG 60. Medics arrived and gave 12.5 of D50 IV. Patient will arouse only with painful stimuli. Current BG 106 patient will arouse with voice stimulus.). She has had weakness. No fever, cough, difficulty breathing or skin rash. Denies muscle aches. SURGERY HX: Left hip surgery. SOCIAL HX: Former smoker, end date 01/2017. No alcohol use or drug use. FALL RISK ASSESSMENT: Fall risk assessment completed. No fall risk identified. NUTRITIONAL RISK ASSESSMENT: The nutritional risk assessment revealed no deficiencies. FUNCTIONAL ASSESSMENT: Functional assessment: no impairments noted. LEARNING NEEDS ASSESSMENT: The learning needs assessment revealed no barriers. SKIN INTEGRITY ASSESSMENT: Skin integrity risk assessment completed. No skin integrity risk identified. --09:45 Neri Craft R.N. PROBLEMS: RT BKA. Pressure Ulcer. COPD - Chronic Obstructive Pulmonary Disease. Diabetes Mellitus. Renal Failure. Anemia. Fall. Peripheral Vascular Disease. Diabetes Mellitus Type 2. Gastroesophageal Reflux. Hypertension. Chronic kidney disease stage 1. Chronic kidney disease. Depression. Hyperlipidemia. Encephalopathy. UTI - Urinary Tract Infection. --09:27 Neri Craft R.N. ADDITIONAL SURGERIES: Amputation Below Knee. Amputation Lower Extremity. Hip Surgery. Hysterectomy. --09:27 Neri Craft R.N. Interventions ID and allergy band on patient. --09:45 Neri Craft R.N. PHYSICAL ASSESSMENT To room via stretcher. GENERAL / NEURO / PSYCH: Decreased awareness. The patient is disoriented. Mood/affect abnormal. She has had weakness. Pupillary exam: Pupils are equal, round, and reactive to light. RESPIRATORY: Respirations not labored. Chest nontender. Breath sounds within normal limits. CVS: ( Edema). GI / : ( Large stool on arrival). Abdominal distention noted as firm. EXTREMITIES: Lower extremity edema. SKIN: Skin is warm and dry. Poor skin turgor. ( brusies some healing some new). --09:48 Neri Craft R.N. NURSING PROGRESS NOTES ( BG 76). --09:48 Neri Craft R.N. The initial plan of care for this patient includes an assessment with efforts to address patient positioning, appropriate ambient lighting and comfortable environmental temperature; impairment of the neurological system. Oxygen administered at 2 liters. laboratory monitor, pulse oximeter and NIBP monitor placed on patient. Patient gowned. Head of bed elevated 30 degrees. Call light placed in reach. Side rails up x 2. Bed placed in lowest position. Brakes of bed on. --09:49 Neri Craft R.N. 09:26 04/15/2017 Site #1 started via IV in the left antecubital space with an 22g angiocath, with aseptic technique and good blood return; one attempt. Saline lock flushed with 10 mL saline. --09:51 Neri Craft R.N. 09:40 04/15/17. ( Attempted to get temp ax 90.0 was reading with two different temp. Oral no read. Rectal temp acquired. Reported to MD.). --09:50 Neri Craft R.N. EKG time: (0900). EKG was ordered, performed by a tech and shown to the ED physician. --10:01 Jaspreet Torres, ER Tech1 Finger stick glucose: 76; ordered; performed by tech; result shown to the RN. ( @ 0950). --10:02 Jaspreet Torres, ER Tech1 10:11 04/15/17. BP: 126/60. HR: 53. RR: 15. O2 saturation: 98%. Temp: 91.3 F (axillary). --10:11 Neri Craft R.N. 09:45 04/15/17. ( Bear hugger initiated and fluids on the warmer. Extra blankets applied.). --10:14 Neri Craft R.N. ( BG 68). --10:24 Neri Craft R.N. 10:43 04/15/2017 Site #2 started via IV in the right antecubital space with an 18g angiocath, with aseptic technique and good blood return; one attempt. Saline lock flushed with 10 mL saline. --10:58 Neri Craft R.N. <<STRICKEN ENTRY-- 10:50 04/15/2017 Started 250 mg of Levofloxacin IVPB in bag #1 100 mL; at 100 mL/hr over 1 hour(s) via site #2 via IV pump. Allergies verified and confirmed 5 rights. IV patency established. IV site checked: no pain, redness, or swelling. IV flushed thoroughly pre- and post-medication administration. --10:58 Neri Craft R.N. --END STRIKE>> Correction. --14:44 Neri Craft R.N. 10:50 04/15/2017 Started 500 mg of Levofloxacin IVPB in bag #1 100 mL; at 100 mL/hr over 1 hour(s) via site #2 via IV pump. Allergies verified and confirmed 5 rights. IV patency established. IV site checked: no pain, redness, or swelling. IV flushed thoroughly pre- and post-medication administration. --14:44 Neri Craft R.N. 11:00 04/15/2017 Started 1 gm of Ceftriaxone IVPB in bag #1 50 mL; at 150 mL/hr over 1 hour(s) via site #1 via IV pump. Allergies verified and confirmed 5 rights. IV patency established. IV site checked: no pain, redness, or swelling. IV flushed thoroughly pre- and post-medication administration. --11:00 Neri Craft R.N. ( BG 60). --11:01 Neri Craft R.N. late entry -10:33. Critical value relayed to ED by Brett. Critical value received by Rodney. BUN 84. Critical value read back. Verified lab result. ED physician and charge nurse notifed of critical value. --11:16 Rodney Marie R.N. ( call placed to [facility] for primary RN and MD to inquire on pts diabetic meds as well as if they have further information regarding pts wishes for dialysis. per Anmol pts nurse today and him speaking with his nurse nurse healthcare manager when pt returned from [facility] following recent admission, it was received in report that pt "refused dialysis" in hospital. pts bgl last evening per Anmol was 128, pt was given her standard dose of Lantus 10 units HS however pts Lispro sliding scale was held.). --11:28 Joaquin Zuniga R.N. ( call placed to Dr Mcadams office spoke with Jenifer, she will fax records to [facility] ED of Dr Mcadams notes). --11:39 Joaquin Zuniga R.N. Finger stick glucose: 101; performed by tech; result shown to the RN. ( @ 2896). --11:49 Jaspreet Torres, ER Tech1 12:15 04/15/17. BP: 143/62. HR: 54. RR: 17. O2 saturation: 95%. Temp: 93.9 F (rectal). 12:00 04/15/17. BP: 125/49. HR: 58. RR: 16. O2 saturation: 98%. Temp: 92.6 F (rectal). Pain level now: 06/12. 11:45 04/15/17. BP: 139/60. HR: 56. RR: 18. O2 saturation: 98% on nasal cannula at 2 liters/minute. Temp: 92.5 F (rectal). 11:30 04/15/17. BP: 136/57. HR: 56. RR: 16. O2 saturation: 97% on nasal cannula at 2 liters/minute. Temp: 92.4 F (rectal). 11:15 04/15/17. BP: 140/57. HR: 58. RR: 14. O2 saturation: 98%. Temp: 92.4 F (rectal). 11:00 04/15/17. BP: 125/49. HR: 62. RR: 15. O2 saturation: 98%. Temp: 92 F (rectal). 10:45 04/15/17. BP: 132/54. HR: 55. RR: 14. O2 saturation: 98%. 10:04/15/17. BP: 132/54. HR: 55. RR: 14. O2 saturation: 98% on nasal cannula at 2 liters/minute. Temp: 92 F (axillary). 10:04/15/17. BP: 126/60. HR: 53. RR: 15. O2 saturation: 98%. Temp: 91.3 F (axillary). 09:55 04/15/17. BP: 148/63. HR: 60. RR: 14. O2 saturation: 97%. Temp: 91.8 F (rectal). 09:40 04/15/17. BP: 148/62. HR: 60. RR: 14. O2 saturation: 97%. 09:25 04/15/17. BP: 142/64. HR: 58. RR: 16. O2 saturation: 97% on nasal cannula at 2 liters/minute. Temp: 90.6 F (axillary). 09:10 04/15/17. BP: 142/60. HR: 62. RR: 16. O2 saturation: 98%. --12:17 Neri Craft R.N. late entry - 11:00 04/15/17. ( Patient placed in [place] with a rectal probe to monitor temp. Patient had a BM and tolerated cleaning well.). --12:18 Neri Craft R.N. 11:16 04/15/2017 Started bag #1 1000 mL IV Fluids IV D5W 1/2 NS AND KCL 20 MEQ (KCl-NaCl in D5W); at 150 mL/hr over 6 hour(s) via site #1 via IV pump. Allergies verified and confirmed 5 rights. IV patency established. IV site checked: no pain, redness, or swelling. IV flushed thoroughly pre- and post-medication administration. --11:16 Neri Craft R.N. 11:30 04/15/2017 Ceftriaxone IVPB Discontinued: bag #1 infused. Total amount infused: 50 mL. IV patency established. IV site checked: no pain, redness, or swelling. IV flushed thoroughly. --12:19 Neri Craft R.N. 11:50 04/15/2017 Levofloxacin IVPB Discontinued: bag #1 infused. Total amount infused: 100 mL. IV patency established. IV site checked: no pain, redness, or swelling. IV flushed thoroughly. --12:19 Neri Craft R.N. 12:10 04/15/2017 Demerol (Meperidine HCl) IVP 25 mg given over 2 minute(s) via site #2. Allergies verified and confirmed 5 rights. IV patency established. IV site checked: no pain, redness, or swelling. IV flushed thoroughly pre- and post-medication administration. --12:20 Neri Craft R.N. 12:10 04/15/2017 Magnesium Sulfate (Magnesium Sulfate in D5W) IVP 2 gm given over 2 hour(s) via site #2. Allergies verified and confirmed 5 rights. IV patency established. IV site checked: no pain, redness, or swelling. IV flushed thoroughly pre- and post-medication administration. --12:20 Neri Craft R.N. Finger stick glucose: 102; performed by tech; result shown to the RN. --12:29 Jaspreet Torres, ER Tech1 ( H/P forms on chart). --13:11 Seema Griffin, ER Tech1 Finger stick glucose: 101; performed by tech; result shown to the RN. --13:12 Jaspreet Torres, ER Tech1 13:48 04/15/17. BP: 140/70. HR: 66. RR: 17. O2 saturation: 97%. Temp: 97.9 F (axillary). Pain level now: 5/10. --13:49 Neri Craft R.N. ( overview faxed to ICU). --14:07 Seema Griffin, ER Tech1 14:18 04/15/2017 Demerol (Meperidine HCl) IVP 25 mg given over 2 minute(s) via site #1. Allergies verified and confirmed 5 rights. IV patency established. IV site checked: no pain, redness, or swelling. IV flushed thoroughly pre- and post-medication administration. --14:33 Neri Craft R.N. 14:30 04/15/17. BP: 146/57. HR: 64. RR: 13. O2 saturation: 96%. 14:15 04/15/17. BP: 143/59. HR: 65. RR: 15. O2 saturation: 95%. 14:00 04/15/17. BP: 153/58. HR: 64. RR: 13. O2 saturation: 97%. 13:48 04/15/17. BP: 140/70. HR: 66. RR: 17. O2 saturation: 97%. Temp: 97.9 F (axillary). Pain level now: 03/12. 13:30 04/15/17. BP: 139/56. HR: 64. RR: 19. O2 saturation: 97%. 13:15 04/15/17. BP: 139/58. HR: 63. RR: 19. O2 saturation: 97%. 13:00 04/15/17. BP: 135/104. HR: 63. RR: 18. O2 saturation: 97%. 12:45 04/15/17. BP: 131/60. HR: 62. RR: 17. O2 saturation: 97%. 12:30 04/15/17. BP: 138/56. HR: 59. RR: 18. O2 saturation: 96%. --19:29 Neri Craft R.N. DISPOSITION / DISCHARGE 14:30 04/15/17. BP: 146/57. HR: 64. RR: 13. O2 saturation: 96%. --19:30 Neri Craft R.N. Departure time: 1445. Admitted to the Critical Care Unit. ( Report given patient being transported by accounts manager.). --19:30 Neri Craft R.N. 14:45 04/15/2017 Site #[address] upon admission; patent. Good blood return present. --19:31 Neri Craft R.N. 14:45 04/15/2017 Site #[address] upon admission; patent. Good blood return present. --19:32 Neri Craft R.N. 14:45 04/15/2017 IV Fluids IV D5W 1/2 NS AND KCL 20 MEQ Continued: upon transfer at the rate of 150 mL/hr. 400 mL remaining bag #1. IV patency established. IV site checked: no pain, redness, or swelling. IV flushed thoroughly. --19:33 Neri Craft R.N. Locked/Released at 04/15/2017 19:33 by Neri Craft R.N.
--- NOTE | 2017-04-15 13:58 | ED NURSING NOTES ---
Clinical Report - Nurses [facility] [address] [place] [address] 04/15/2017 8:51 Patient: ANDRE DONATO [facility] [id number] TRIAGE Triage time 08:55 Renato 13 2016. Acuity: LEVEL 2. Chief Complaint: ACTING DIFFERENTLY, BLOOD SUGAR CHECK, WEAKNESS and CONFUSION. ALICE COMA SCORE: Alice Coma Scale: 9- eyes open to pain (2); best verbal response- incoherent speech (2); best motor response- localizes to pain (5). --09:45 Neri Craft R.N. 08:55 04/15/17. BP: 148/63. HR: 61. RR: 18. O2 saturation: 98%. Temp: 90.6 F (rectal). Gomez-Giordano pain scale: 6/10. --09:45 Neri Craft R.N. Weight: 88.4 kg stated. Height/Length: 62 inches Per Patient. BMI: 35.7. --09:38 Neri Craft R.N. Medications Acetaminophen Oral. Amlodipine Besy-Benazepril HCl Oral 10mg, daily. Ascorbic Acid Oral (Tablet Chewable 500 mg) 1 tablet, daily. Atorvastatin Calcium Oral (Tablet 20 mg) 1 tablet, daily. Dulcolax Rectal (Suppository 10 mg) 1 suppository, daily as needed. Ergocalciferol Oral. Ferrous Sulfate Oral 325 mg, 3x a day. Folic Acid Oral (Tablet 1 mg) 1 tablet, daily. Insulin Glargine Subcutaneous. Insulin Lispro (Human) Subcutaneous. Labetalol HCl Oral (Tablet 100 mg) 1 tablet, 2x a day. Melatonin Oral (Tablet 3 mg) 1 tablet, daily. Milk of Magnesia Oral 1200mg/15ml, daily as needed. Pantoprazole Sodium Oral. Senna Laxative Oral (Tablet 8.6 mg) 1 tablet, daily. Venlafaxine HCl ER Oral 75mg, daily. --09:01 Neri Craft R.N. HydrALAZINE HCl Injection. --09:01 Neri Craft R.N. Allergies Codeine. --09:02 Neri Craft R.N. History Arrived by private vehicle. Historian: patient. This started just prior to arrival. ( 911 called for decreased LOC BG 60. Medics arrived and gave 12.5 of D50 IV. Patient will arouse only with painful stimuli. Current BG 106 patient will arouse with voice stimulus.). She has had weakness. No fever, cough, difficulty breathing or skin rash. Denies muscle aches. SURGERY HX: Left hip surgery. SOCIAL HX: Former smoker, end date 01/2017. No alcohol use or drug use. FALL RISK ASSESSMENT: Fall risk assessment completed. No fall risk identified. NUTRITIONAL RISK ASSESSMENT: The nutritional risk assessment revealed no deficiencies. FUNCTIONAL ASSESSMENT: Functional assessment: no impairments noted. LEARNING NEEDS ASSESSMENT: The learning needs assessment revealed no barriers. SKIN INTEGRITY ASSESSMENT: Skin integrity risk assessment completed. No skin integrity risk identified. --09:45 Neri Craft R.N. PROBLEMS: RT BKA. Pressure Ulcer. COPD - Chronic Obstructive Pulmonary Disease. Diabetes Mellitus. Renal Failure. Anemia. Fall. Peripheral Vascular Disease. Diabetes Mellitus Type 2. Gastroesophageal Reflux. Hypertension. Chronic kidney disease stage 1. Chronic kidney disease. Depression. Hyperlipidemia. Encephalopathy. UTI - Urinary Tract Infection. --09:27 Neri Craft R.N. ADDITIONAL SURGERIES: Amputation Below Knee. Amputation Lower Extremity. Hip Surgery. Hysterectomy. --09:27 Neri Craft R.N. Interventions ID and allergy band on patient. --09:45 Neri Craft R.N. PHYSICAL ASSESSMENT To room via stretcher. GENERAL / NEURO / PSYCH: Decreased awareness. The patient is disoriented. Mood/affect abnormal. She has had weakness. Pupillary exam: Pupils are equal, round, and reactive to light. RESPIRATORY: Respirations not labored. Chest nontender. Breath sounds within normal limits. CVS: ( Edema). GI / : ( Large stool on arrival). Abdominal distention noted as firm. EXTREMITIES: Lower extremity edema. SKIN: Skin is warm and dry. Poor skin turgor. ( brusies some healing some new). --09:48 Neri Craft R.N. NURSING PROGRESS NOTES ( BG 76). --09:48 Neri Craft R.N. The initial plan of care for this patient includes an assessment with efforts to address patient positioning, appropriate ambient lighting and comfortable environmental temperature; impairment of the neurological system. Oxygen administered at 2 liters. speech language pathologist travel, pulse oximeter and NIBP monitor placed on patient. Patient gowned. Head of bed elevated 30 degrees. Call light placed in reach. Side rails up x 2. Bed placed in lowest position. Brakes of bed on. --09:49 Neri Craft R.N. 09:26 04/15/2017 Site #1 started via IV in the left antecubital space with an 22g angiocath, with aseptic technique and good blood return; one attempt. Saline lock flushed with 10 mL saline. --09:51 Neri Craft R.N. 09:40 04/15/17. ( Attempted to get temp ax 90.0 was reading with two different temp. Oral no read. Rectal temp acquired. Reported to MD.). --09:50 Neri Craft R.N. EKG time: (0900). EKG was ordered, performed by a tech and shown to the ED physician. --10:01 Jaspreet Torres, ER Tech1 Finger stick glucose: 76; ordered; performed by tech; result shown to the RN. ( @ 0950). --10:02 Jaspreet Torres, ER Tech1 10:11 04/15/17. BP: 126/60. HR: 53. RR: 15. O2 saturation: 98%. Temp: 91.3 F (axillary). --10:11 Neri Craft R.N. 09:45 04/15/17. ( Bear hugger initiated and fluids on the warmer. Extra blankets applied.). --10:14 Neri Craft R.N. ( BG 68). --10:24 Neri Craft R.N. 10:43 04/15/2017 Site #2 started via IV in the right antecubital space with an 18g angiocath, with aseptic technique and good blood return; one attempt. Saline lock flushed with 10 mL saline. --10:58 Neri Craft R.N. <<STRICKEN ENTRY-- 10:50 04/15/2017 Started 250 mg of Levofloxacin IVPB in bag #1 100 mL; at 100 mL/hr over 1 hour(s) via site #2 via IV pump. Allergies verified and confirmed 5 rights. IV patency established. IV site checked: no pain, redness, or swelling. IV flushed thoroughly pre- and post-medication administration. --10:58 Neri Cratf R.N. --END STRIKE>> Correction. --14:44 Neri Craft R.N. 10:50 04/15/2017 Started 500 mg of Levofloxacin IVPB in bag #1 100 mL; at 100 mL/hr over 1 hour(s) via site #2 via IV pump. Allergies verified and confirmed 5 rights. IV patency established. IV site checked: no pain, redness, or swelling. IV flushed thoroughly pre- and post-medication administration. --14:44 Neri Craft R.N. 11:00 04/15/2017 Started 1 gm of Ceftriaxone IVPB in bag #1 50 mL; at 150 mL/hr over 1 hour(s) via site #1 via IV pump. Allergies verified and confirmed 5 rights. IV patency established. IV site checked: no pain, redness, or swelling. IV flushed thoroughly pre- and post-medication administration. --11:00 Neri Craft R.N. ( BG 60). --11:01 Neri Craft R.N. late entry -10:33. Critical value relayed to ED by Brett. Critical value received by Rodney. BUN 84. Critical value read back. Verified lab result. ED physician and charge nurse notifed of critical value. --11:16 Rodney Marie R.N. ( call placed to [facility] for primary RN and MD to inquire on pts diabetic meds as well as if they have further information regarding pts wishes for dialysis. per Anmol pts nurse today and him speaking with his nurse manager games when pt returned from [facility] following recent admission, it was received in report that pt "refused dialysis" in hospital. pts bgl last evening per Anmol was 128, pt was given her standard dose of Lantus 10 units HS however pts Lispro sliding scale was held.). --11:28 Joaquin Zuniga R.N. ( call placed to Dr Mcadams office spoke with Jenifer, she will fax records to [facility] ED of Dr Mcadams notes). --11:39 Joaquin Zuniga R.N. Finger stick glucose: 101; performed by tech; result shown to the RN. ( @ 0054). --11:49 Jaspreet Torres, ER Tech1 12:15 04/15/17. BP: 143/62. HR: 54. RR: 17. O2 saturation: 95%. Temp: 93.9 F (rectal). 12:00 04/15/17. BP: 125/49. HR: 58. RR: 16. O2 saturation: 98%. Temp: 92.6 F (rectal). Pain level now: 06/12. 11:45 04/15/17. BP: 139/60. HR: 56. RR: 18. O2 saturation: 98% on nasal cannula at 2 liters/minute. Temp: 92.5 F (rectal). 11:30 04/15/17. BP: 136/57. HR: 56. RR: 16. O2 saturation: 97% on nasal cannula at 2 liters/minute. Temp: 92.4 F (rectal). 11:15 04/15/17. BP: 140/57. HR: 58. RR: 14. O2 saturation: 98%. Temp: 92.4 F (rectal). 11:00 04/15/17. BP: 125/49. HR: 62. RR: 15. O2 saturation: 98%. Temp: 92 F (rectal). 10:45 04/15/17. BP: 132/54. HR: 55. RR: 14. O2 saturation: 98%. 10:04/15/17. BP: 132/54. HR: 55. RR: 14. O2 saturation: 98% on nasal cannula at 2 liters/minute. Temp: 92 F (axillary). 10:04/15/17. BP: 126/60. HR: 53. RR: 15. O2 saturation: 98%. Temp: 91.3 F (axillary). 09:55 04/15/17. BP: 148/63. HR: 60. RR: 14. O2 saturation: 97%. Temp: 91.8 F (rectal). 09:40 04/15/17. BP: 148/62. HR: 60. RR: 14. O2 saturation: 97%. 09:25 04/15/17. BP: 142/64. HR: 58. RR: 16. O2 saturation: 97% on nasal cannula at 2 liters/minute. Temp: 90.6 F (axillary). 09:10 04/15/17. BP: 142/60. HR: 62. RR: 16. O2 saturation: 98%. --12:17 Neri Craft R.N. late entry - 11:00 04/15/17. ( Patient placed in [place] with a rectal probe to monitor temp. Patient had a BM and tolerated cleaning well.). --12:18 Neri Craft R.N. 11:16 04/15/2017 Started bag #1 1000 mL IV Fluids IV D5W 1/2 NS AND KCL 20 MEQ (KCl-NaCl in D5W); at 150 mL/hr over 6 hour(s) via site #1 via IV pump. Allergies verified and confirmed 5 rights. IV patency established. IV site checked: no pain, redness, or swelling. IV flushed thoroughly pre- and post-medication administration. --11:16 Neri Craft R.N. 11:30 04/15/2017 Ceftriaxone IVPB Discontinued: bag #1 infused. Total amount infused: 50 mL. IV patency established. IV site checked: no pain, redness, or swelling. IV flushed thoroughly. --12:19 Neri Craft R.N. 11:50 04/15/2017 Levofloxacin IVPB Discontinued: bag #1 infused. Total amount infused: 100 mL. IV patency established. IV site checked: no pain, redness, or swelling. IV flushed thoroughly. --12:19 Neri Craft R.N. 12:10 04/15/2017 Demerol (Meperidine HCl) IVP 25 mg given over 2 minute(s) via site #2. Allergies verified and confirmed 5 rights. IV patency established. IV site checked: no pain, redness, or swelling. IV flushed thoroughly pre- and post-medication administration. --12:20 Neri Craft R.N. 12:10 04/15/2017 Magnesium Sulfate (Magnesium Sulfate in D5W) IVP 2 gm given over 2 hour(s) via site #2. Allergies verified and confirmed 5 rights. IV patency established. IV site checked: no pain, redness, or swelling. IV flushed thoroughly pre- and post-medication administration. --12:20 Neri Craft R.N. Finger stick glucose: 102; performed by tech; result shown to the RN. --12:29 Jaspreet Torres, ER Tech1 ( H/P forms on chart). --13:11 Seema Griffin, ER Tech1 Finger stick glucose: 101; performed by tech; result shown to the RN. --13:12 Jaspreet Torres, ER Tech1 13:48 04/15/17. BP: 140/70. HR: 66. RR: 17. O2 saturation: 97%. Temp: 97.9 F (axillary). Pain level now: 5/10. --13:49 Neri Craft R.N. ( overview faxed to ICU). --14:07 Seema Griffin, ER Tech1 14:18 04/15/2017 Demerol (Meperidine HCl) IVP 25 mg given over 2 minute(s) via site #1. Allergies verified and confirmed 5 rights. IV patency established. IV site checked: no pain, redness, or swelling. IV flushed thoroughly pre- and post-medication administration. --14:33 Neri Craft R.N. 14:30 04/15/17. BP: 146/57. HR: 64. RR: 13. O2 saturation: 96%. 14:15 04/15/17. BP: 143/59. HR: 65. RR: 15. O2 saturation: 95%. 14:00 04/15/17. BP: 153/58. HR: 64. RR: 13. O2 saturation: 97%. 13:48 04/15/17. BP: 140/70. HR: 66. RR: 17. O2 saturation: 97%. Temp: 97.9 F (axillary). Pain level now: 03/12. 13:30 04/15/17. BP: 139/56. HR: 64. RR: 19. O2 saturation: 97%. 13:15 04/15/17. BP: 139/58. HR: 63. RR: 19. O2 saturation: 97%. 13:00 04/15/17. BP: 135/104. HR: 63. RR: 18. O2 saturation: 97%. 12:45 04/15/17. BP: 131/60. HR: 62. RR: 17. O2 saturation: 97%. 12:30 04/15/17. BP: 138/56. HR: 59. RR: 18. O2 saturation: 96%. --19:29 Neri Craft R.N. DISPOSITION / DISCHARGE 14:30 04/15/17. BP: 146/57. HR: 64. RR: 13. O2 saturation: 96%. --19:30 Neri Craft R.N. Departure time: 1445. Admitted to the Critical Care Unit. ( Report given patient being transported by gasket maker.). --19:30 Neri Craft R.N. 14:45 04/15/2017 Site #[address] upon admission; patent. Good blood return present. --19:31 Neri Craft R.N. 14:45 04/15/2017 Site #[address] upon admission; patent. Good blood return present. --19:32 Neri Craft R.N. 14:45 04/15/2017 IV Fluids IV D5W 1/2 NS AND KCL 20 MEQ Continued: upon transfer at the rate of 150 mL/hr. 400 mL remaining bag #1. IV patency established. IV site checked: no pain, redness, or swelling. IV flushed thoroughly. --19:33 Neri Craft R.N. Locked/Released at 04/15/2017 19:33 by Neri Craft R.N.
--- NOTE | 2017-04-15 14:14 | DIAGNOSTIC IMAGING REPORT ---
PROCEDURE: XR CHEST 1 VIEW INDICATION: COUGH TECHNIQUE: Portable AP view 02:05 p.m. COMPARISON: chest 04/15/2017 FINDINGS: Lungs are clear. Mild cardiomegaly with normal pulmonary vasculature. Thorax is normal. IMPRESSION: 1. Lungs clear. Mild cardiomegaly.
--- NOTE | 2017-04-15 14:49 | HISTORY AND PHYSICAL ---
ADMITTED: 04/15/2017 CHIEF COMPLAINT: 1. Change in mental status HISTORY OF PRESENT ILLNESS: This is a 66-year-old white female who was noticed in the assisted that she was acting differently and confused and weak, and also when the blood sugar was checked it was found it was low, like in the 50s, with decreased responsiveness. So the patient was transferred to the emergency department for further evaluation. The patient was found to be really hypothermic, like a temperature of 90, and also blood sugar in the 60s, and was found to have a severe UTI. MEDICAL/SURGICAL HISTORY: Past medical history: Remarkable for diabetes mellitus , hypertension, chronic renal failure, stage 4, GERD, depression, hyperlipidemia, recurring UTI. Surgical history: Remarkable for leg amputation and toe amputation, hysterectomy, cholecystectomy, and eye surgery. Hospitalizations: Last one was 3 weeks ago for the hip fracture repair. MEDICATIONS: 1. Amlodipine 10 mg daily. 2. Lipitor 20 mg daily. 3. Dulcolax suppository 10 mg as needed. 4. Ferrous sulfate 325 mg 3 a day. 5. Folic acid 1 mg daily. 6. Long-acting insulin, dosage is not known. 7. Labetalol 100 mg twice a day. 8. Protonix 40 mg daily. 9. Effexor 75 mg daily. 10. Hydralazine, dosage is not known. ALLERGIES: 1. CODEINE. SOCIAL HISTORY: The patient is a , just transferred to rehabilitation in assisted for the hip fracture. Has children. No history of smoking, alcohol or drug abuse. FAMILY HISTORY: Noncontributory. REVIEW OF SYSTEMS: The patient has mild weight loss. Also, hearing loss. No difficulty with vision. No runny nose or congestion, cough or sore throat. No chest pain. No shortness of breath or palpitations. No nausea, no vomiting, no indigestion. No abdominal pain. Normal regular bowel movements. The patient also has incontinence, but no dysuria, frequency. Numbness in the feet due to neuropathy. No dizziness. No headaches. No syncope. No localized weakness. PHYSICAL EXAMINATION: VITAL SIGNS: Blood pressure 148/63, pulse is 61, respirations 18, oxygen saturation 98% on room air, temperature was 90.6 before the warming up. GENERAL APPEARANCE: Well developed, well nourished, good body build, no acute distress at this moment, except the patient complains of heat, so we took the heating pads off. HEENT: Ears: Normal tympanic membranes. Mouth: Normal hypopharynx, no exudation, no erythema. Nose: Normal mucosa. NECK: Supple. No JVD. No carotid bruit. No palpable mass. SKIN: Warm and dry with good turgor. LUNGS: Clear to auscultation. No rhonchi or wheezing or crackles. HEART: Regular S1, S2. No murmur. No S3. ABDOMEN: Soft, nontender. Bowel sounds are positive. EXTREMITIES: The patient has an above-knee amputation on the right side and a toe amputation in the left foot. NEUROLOGIC: Alert and oriented x3. Cranial nerves are grossly intact. No motor deficits. Pupils are equal, round, and reactive to light. Extraocular movements are intact. No nystagmus. No cerebellar signs. Deep tendon reflexes are present. LAB/IMAGING: UA is consistent with a UTI. White blood count is 10.8, hemoglobin is 7.8, hematocrit 23.9, platelet count is 218. D-dimer is 2.97. Lactic acid 0.5. BNP is 133. Glucose 59, BUN is 84, creatinine is 4.8. Sodium is 133, potassium is 4.8, chloride is 100, CO2 is 21, calcium is 8. Liver enzymes unremarkable. Magnesium is 1.1. Troponin I is less than 0.05. IMPRESSION: 1. Urinary tract infection 2. Hypothermia 3. Diabetes mellitus 4. Hypertension 5. Stage 4 kidney disease 6. Peripheral vascular disease PLAN: On the discussion that I had with the patient, the patient wished to be FULL NO CODE AND COMFORT MEASURES, but agrees to the IV antibiotic and fluids. The patient is strictly against hemodialysis and will not have any hemodialysis under any circumstances. So patient will be admitted to acute care and will continue on Rocephin IV with IV hydration. Hypothermia has almost resolved, and we will add TSH to the patient's blood work, and also add a chest x-ray and continue Rocephin.
[2017-04-15 15:02] VITALS: BP 147/52
--- NOTE | 2017-04-15 15:55 | Progress Note ---
Subjective General ADVANCED CARE PLAN History of Present Illness This is a 66-year-old white female who was noticed in the detention that she was acting differently and confused and weak, and also when the blood sugar was checked it was found it was low, like in the 50s, with decreased responsiveness. So the patient was transferred to the emergency department for further evaluation. The patient was found to be really hypothermic, like a temperature of 90, and also blood sugar in the 60s, and was found to have a severe UTI. A discussion was undertaken with the patient regarding previous advance care arrangements/decisions. The following advanced directives were noted by the patient and discussed with me at the time of admission. ADVANCED DIRECTIVES: 1. Living well: No 2. POLST: No 3. CODE STATUS: Full No Cold 4. Durable Power Card Services Specialist Health care: Yes 5. Donor card: No The patient has expressed interest in not pursuing any form of resuscitation at this time. She has opted not to pursue intubation/mechanical ventilation, CPR, electrical cardioversion, or life-sustaining efforts involving drugs at the time of cardiopulmonary arrest. The patient's wishes were documented in the chart and orders regarding the patient's wishes entered into the [employer] system. The "Advance Care Plan Document" was not distributed to patient to discuss with her family. Less than 30 minutes was spent in performing the above tasks and documentation of the patient's advanced care plan.
--- NOTE | 2017-04-15 15:55 | Progress Note ---
Subjective General ADVANCED CARE PLAN History of Present Illness This is a 66-year-old white female who was noticed in the custodial that she was acting differently and confused and weak, and also when the blood sugar was checked it was found it was low, like in the 50s, with decreased responsiveness. So the patient was transferred to the emergency department for further evaluation. The patient was found to be really hypothermic, like a temperature of 90, and also blood sugar in the 60s, and was found to have a severe UTI. A discussion was undertaken with the patient regarding previous advance care arrangements/decisions. The following advanced directives were noted by the patient and discussed with me at the time of admission. ADVANCED DIRECTIVES: 1. Living well: No 2. POLST: No 3. CODE STATUS: Full No Cold 4. Durable Power Organ Pipe Maker Metal Health care: Yes 5. Donor card: No The patient has expressed interest in not pursuing any form of resuscitation at this time. She has opted not to pursue intubation/mechanical ventilation, CPR, electrical cardioversion, or life-sustaining efforts involving drugs at the time of cardiopulmonary arrest. The patient's wishes were documented in the chart and orders regarding the patient's wishes entered into the [employer] system. The "Advance Care Plan Document" was not distributed to patient to discuss with her family. Less than 30 minutes was spent in performing the above tasks and documentation of the patient's advanced care plan.
[2017-04-15] MEDS ORDERED: DRISDOL50000 UNT PO (16:16)
[2017-04-15] MEDS ORDERED: FUROSEMIDE40 MG PO (16:18)
[2017-04-15] MEDS ORDERED: FLUTICASONE PR50 MCG (16:18)
[2017-04-15] MEDS ORDERED: GERI-LANTA (16:19)
[2017-04-15] MEDS ORDERED: HYDRALAZINE HCL25 MG PO (16:24)
[2017-04-15] MEDS ORDERED: OXAYDO5 MG PO ×2 (16:26→16:27)
[2017-04-15] MEDS ORDERED: PANTOPRAZOLE SO40 MG PO (16:31)
[2017-04-15] MEDS ORDERED: ABILIFY5 MG PO (16:31)
--- NOTE | 2017-04-15 19:34 | ED MED RECONCILIATION SUMMARY ---
Patient: ANDRE DONATO Medication Reconciliation Report [facility] VisitID: [id number] [address] [place] [address] 66y, F Registration Date/Time: 04/15/2017 Weight: 88.4 kg Height/Length: 62 in. BMI: 35.7 ALLERGIES: Codeine The patient's Home Medications are listed below: THE FOLLOWING MEDICATIONS NEED TO BE RECONCILED: Acetaminophen Oral Amlodipine Besy-Benazepril HCl Oral 10mg, daily Ascorbic Acid Oral (500 mg) 1 tablet, daily Atorvastatin Calcium Oral (20 mg) 1 tablet, daily Dulcolax Rectal (10 mg) 1 suppository, daily Ergocalciferol Oral Ferrous Sulfate Oral 325 mg, 3x a day Folic Acid Oral (1 mg) 1 tablet, daily HydrALAZINE HCl Injection Insulin Glargine Subcutaneous Insulin Lispro (Human) Subcutaneous Labetalol HCl Oral (100 mg) 1 tablet, 2x a day Melatonin Oral (3 mg) 1 tablet, daily Milk of Magnesia Oral 1200mg/15ml, daily Pantoprazole Sodium Oral Senna Laxative Oral (8.6 mg) 1 tablet, daily Venlafaxine HCl ER Oral 75mg, daily The source(s) of the original Home Medication information: Not obtained. The following Medications were given to the patient in the Emergency Department: Levofloxacin [IVPB] IVPB bolus 0, then 500 mg 100 mL/hr, administered: 04/15/2017 10:50:00 AM Ceftriaxone [IVPB] IVPB bolus 0, then 1 gm 150 mL/hr, administered: 04/15/2017 11:00:00 AM IV D5W 1/2 NS AND KCL 20 MEQ IV Fluids bolus 0, then 150 mL/hr, administered: 04/15/2017 11:16:00 AM Demerol [IVP] IVP 25 mg, administered: 04/15/2017 12:10:00 PM Magnesium Sulfate [IVP] IVP 2 gm, administered: 04/15/2017 12:10:00 PM Demerol [IVP] IVP 25 mg, administered: 04/15/2017 2:18:00 PM The following Medications were prescribed to the patient: None.
--- NOTE | 2017-04-15 19:34 | ED MED RECONCILIATION SUMMARY ---
Patient: ANDRE DONATO Medication Reconciliation Report [facility] VisitID: [id number] [address] [place] [address] 66y, F Registration Date/Time: 04/15/2017 Weight: 88.4 kg Height/Length: 62 in. BMI: 35.7 ALLERGIES: Codeine The patient's Home Medications are listed below: THE FOLLOWING MEDICATIONS NEED TO BE RECONCILED: Acetaminophen Oral Amlodipine Besy-Benazepril HCl Oral 10mg, daily Ascorbic Acid Oral (500 mg) 1 tablet, daily Atorvastatin Calcium Oral (20 mg) 1 tablet, daily Dulcolax Rectal (10 mg) 1 suppository, daily Ergocalciferol Oral Ferrous Sulfate Oral 325 mg, 3x a day Folic Acid Oral (1 mg) 1 tablet, daily HydrALAZINE HCl Injection Insulin Glargine Subcutaneous Insulin Lispro (Human) Subcutaneous Labetalol HCl Oral (100 mg) 1 tablet, 2x a day Melatonin Oral (3 mg) 1 tablet, daily Milk of Magnesia Oral 1200mg/15ml, daily Pantoprazole Sodium Oral Senna Laxative Oral (8.6 mg) 1 tablet, daily Venlafaxine HCl ER Oral 75mg, daily The source(s) of the original Home Medication information: Not obtained. The following Medications were given to the patient in the Emergency Department: Levofloxacin [IVPB] IVPB bolus 0, then 500 mg 100 mL/hr, administered: 04/15/2017 10:50:00 AM Ceftriaxone [IVPB] IVPB bolus 0, then 1 gm 150 mL/hr, administered: 04/15/2017 11:00:00 AM IV D5W 1/2 NS AND KCL 20 MEQ IV Fluids bolus 0, then 150 mL/hr, administered: 04/15/2017 11:16:00 AM Demerol [IVP] IVP 25 mg, administered: 04/15/2017 12:10:00 PM Magnesium Sulfate [IVP] IVP 2 gm, administered: 04/15/2017 12:10:00 PM Demerol [IVP] IVP 25 mg, administered: 04/15/2017 2:18:00 PM The following Medications were prescribed to the patient: None.
--- NOTE | 2017-04-15 19:34 | ED DISCHARGE INSTRUCTIONS ---
Patient: ANDRE DONATO General Instructions [facility] VisitID: [id number] [address] [place] [address] 66y, F Registration Date/Time: 04/15/2017 Acute urinary tract infection with cystitis. Chronic anemia associated with chronic renal disease. Severe hypothermia with altered mental status. No hypothermia secondary to immersion or exposure. (Electronically signed by Hubert Pendleton Dr. 04/15/2017 16:35)
--- NOTE | 2017-04-15 19:34 | ED MAR SUMMARY ---
..... Medication Administration Record [facility] [address] [place] [address] Patient: ANDRE DONATO Visit ID: [id number] 66y, F Weight: 88.4 kg Height/Length: 62 in BMI: 35.7 ALLERGIES: Codeine Start 10:50 04/15/2017 Neri Craft R.N., Stop 11:50 04/15/2017 Neri Craft R.N. Medication Administered: LEVOFLOXACIN [IVPB], Dose: 500 mg IVPB over 1 hour(s), Rate: 100 mL/hr, Dispensed: 100 mL bag, Site: #2 right AC. Medication Ordered: Levofloxacin IV 500 mg/100mL (NOW). Start 11:00 04/15/2017 Neri Craft R.N., Stop 11:30 04/15/2017 Neri Craft R.N. Medication Administered: CEFTRIAXONE [IVPB], Dose: 1 gm IVPB over 1 hour(s), Rate: 150 mL/hr, Dispensed: 50 mL bag, Site: #1 left AC. Medication Ordered: Ceftriaxone IV 1 gm/50mL (NOW). Start 11:16 04/15/2017 Neri Craft R.N., Continued Upon Transfer 14:45 04/15/2017 Nrei Craft R.N. Medication Administered: IV D5W 1/2 NS AND KCL 20 MEQ (KCL-NACL IN D5W), Dose: IV Fluids over 6 hour(s), Rate: 150 mL/hr, Dispensed: 1000 mL bag, Site: #1 left AC. Medication Ordered: IV D5W 1/2 NS and KCl 20 mEq : initial bolus none -, then 150 mL/hr for X1 (NOW). Given 12:10 04/15/2017 Neri Craft R.N. Medication Administered: DEMEROL [IVP] (MEPERIDINE HCL), Dose: 25 mg IVP over 2 minute(s), Site: #2 right AC. Medication Ordered: Demerol IV 25 mg (HIGH ALERT MEDICATION, NOW). Given 12:10 04/15/2017 Luana, Neri, R.N. Medication Administered: MAGNESIUM SULFATE [IVP] (MAGNESIUM SULFATE IN D5W), Dose: 2 gm IVP over 2 hour(s), Site: #2 right AC. Medication Ordered: Magnesium Sulfate IV 2 gm/50mL (HIGH ALERT MEDICATION, NOW, over 2 hours). Given 14:18 04/15/2017 Neri Craft R.N. Medication Administered: DEMEROL [IVP] (MEPERIDINE HCL), Dose: 25 mg IVP over 2 minute(s), Site: #1 left AC. Medication Ordered: Demerol IV 25 mg (HIGH ALERT MEDICATION, NOW).
--- NOTE | 2017-04-15 19:34 | ED DISCHARGE INSTRUCTIONS ---
Patient: ANDRE DONATO General Instructions [facility] VisitID: [id number] [address] [place] [address] 66y, F Registration Date/Time: 04/15/2017 Acute urinary tract infection with cystitis. Chronic anemia associated with chronic renal disease. Severe hypothermia with altered mental status. No hypothermia secondary to immersion or exposure. (Electronically signed by Hubert Pendleton Dr. 04/15/2017 16:35)
--- NOTE | 2017-04-15 19:34 | ED MAR SUMMARY ---
..... Medication Administration Record [facility] [address] [place] [address] Patient: ANDRE DONATO Visit ID: [id number] 66y, F Weight: 88.4 kg Height/Length: 62 in BMI: 35.7 ALLERGIES: Codeine Start 10:50 04/15/2017 Neri Craft R.N., Stop 11:50 04/15/2017 Neri Craft R.N. Medication Administered: LEVOFLOXACIN [IVPB], Dose: 500 mg IVPB over 1 hour(s), Rate: 100 mL/hr, Dispensed: 100 mL bag, Site: #2 right AC. Medication Ordered: Levofloxacin IV 500 mg/100mL (NOW). Start 11:00 04/15/2017 Neri Craft R.N., Stop 11:30 04/15/2017 Neri Craft R.N. Medication Administered: CEFTRIAXONE [IVPB], Dose: 1 gm IVPB over 1 hour(s), Rate: 150 mL/hr, Dispensed: 50 mL bag, Site: #1 left AC. Medication Ordered: Ceftriaxone IV 1 gm/50mL (NOW). Start 11:16 04/15/2017 Neri Craft R.N., Continued Upon Transfer 14:45 04/15/2017 Neri Craft R.N. Medication Administered: IV D5W 1/2 NS AND KCL 20 MEQ (KCL-NACL IN D5W), Dose: IV Fluids over 6 hour(s), Rate: 150 mL/hr, Dispensed: 1000 mL bag, Site: #1 left AC. Medication Ordered: IV D5W 1/2 NS and KCl 20 mEq : initial bolus none -, then 150 mL/hr for X1 (NOW). Given 12:10 04/15/2017 Neri Craft R.N. Medication Administered: DEMEROL [IVP] (MEPERIDINE HCL), Dose: 25 mg IVP over 2 minute(s), Site: #2 right AC. Medication Ordered: Demerol IV 25 mg (HIGH ALERT MEDICATION, NOW). Given 12:10 04/15/2017 Luana, Neri, R.N. Medication Administered: MAGNESIUM SULFATE [IVP] (MAGNESIUM SULFATE IN D5W), Dose: 2 gm IVP over 2 hour(s), Site: #2 right AC. Medication Ordered: Magnesium Sulfate IV 2 gm/50mL (HIGH ALERT MEDICATION, NOW, over 2 hours). Given 14:18 04/15/2017 Neri Craft R.N. Medication Administered: DEMEROL [IVP] (MEPERIDINE HCL), Dose: 25 mg IVP over 2 minute(s), Site: #1 left AC. Medication Ordered: Demerol IV 25 mg (HIGH ALERT MEDICATION, NOW).
[2017-04-15 20:18] VITALS: BP 157/64
[2017-04-15 23:52] VITALS: BP 140/57
[2017-04-16] VITALS (7 sets, daily range): BP systolic 102–167; BP diastolic 57–90
[2017-04-16] MEDS ORDERED: LEVAQUIN250 MG PO (06:41)
--- NOTE | 2017-04-16 07:30 | DISCHARGE SUMMARY ---
ADMIT DATE: 04/15/2017 DISCHARGE DATE: 04/16/2017 DISCHARGE DIAGNOSES: 1. Urinary tract infection 2. Hypothermia 3. Diabetes mellitus 4. Stage 4 kidney failure BRIEF HISTORY: This is a 66-year-old white female who was in the care home and was noticed that she was acting differently and confused and weak. She was found to have a low blood sugar in the 50s, with decreased responsiveness, so the patient transferred to emergency department and was found to be hypothermic. Temperature was 90.8, and also was found to have a UTI. HOSPITAL COURSE: Several measures to increase to core temperature of the patient worked in the emergency department, and the patient's temperature came up nicely. That was quite helpful and helped the patient to be alert and oriented. The patient also was found to have a UTI, so was admitted to acute care with IV Rocephin. The patient improved rapidly during the hospital course. Today, she is doing much better, very alert and oriented, no fever, no chills, no nausea, no vomiting, no chest pain, no shortness of breath. Complains of pain in her joints, especially knees, which is normal for her and this is chronic pain. The patient is already getting pain medication for that. So the patient is comfortable and would like to be discharged. PHYSICAL EXAMINATION: VITAL SIGNS: Temperature is 98.3, pulse is 71, respirations 20, blood pressure 102/90, oxygen saturation 99% on room air. LUNGS: Clear to auscultation. No rhonchi or wheezing. HEART: Regular, S1 and S2. No murmur. No S3 was heard. ABDOMEN: Soft, nontender. Bowel sounds are positive. 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 No swelling. LAB/IMAGING: Urine culture is pending. Blood cultures are pending. MRSA is pending. White blood count is 8, hemoglobin 6.6, hematocrit is 20, and platelet count is 228. Sodium is 134, potassium is 5, chloride is 104, CO2 is 90. BUN is 78, creatinine is 1.6, glucose 73, calcium 7.9, magnesium is 1.3. DISCHARGE INSTRUCTIONS/MEDICATIONS: The patient will be discharged home, to follow up with her primary care physician as an outpatient. Discharge medications will be same as an outpatient medication, except we will add Levaquin 250 mg daily for 5 more days, along with amlodipine 10 mg daily, Lipitor 20 mg daily. Dulcolax suppository 10 mg as needed. Ferrous sulfate 325 three times a day. Folic acid 1 mg daily. Long-acting insulin 10 units every day. Labetalol 100 mg twice a day. Protonix 40 mg daily. Effexor 75 mg daily. Hydralazine as done as outpatient (we do not know).
[2017-04-16] MEDS ORDERED: ROXICODONE5 MG PO (12:26)
== END 2017-04-16 15:00 | DRG 690 ==
LOC: ED SRH 08:50 → CC SRH 13:46 → TRANS SRH 13:46 → CC SRH 15:20
PROVIDERS: ADMIT Neuromusculoskeletal Medicine, Sports Medicine
PROC: 30233N1 Transfusion of Nonautologous Red Blood Cells into Peripheral Vein, Percutaneous Approach (ICD-10-PCS; principal; 2017-04-16)
DX: N39.0 Urinary tract infection, site not specified (principal); R68.0 Hypothermia, not associated with low environmental temperature; E11.22 Type 2 diabetes mellitus with diabetic chronic kidney disease; N18.4 Chronic kidney disease, stage 4 (severe); E11.649 Type 2 diabetes mellitus with hypoglycemia without coma; I12.9 Hypertensive chronic kidney disease with stage 1 through stage 4 chronic kidney disease, or unspecified chronic kidney disease; D63.1 Anemia in chronic kidney disease; E11.51 Type 2 diabetes mellitus with diabetic peripheral angiopathy without gangrene; L89.151 Pressure ulcer of sacral region, stage 1; J44.9 Chronic obstructive pulmonary disease, unspecified; Z89.511 Acquired absence of right leg below knee; Z89.422 Acquired absence of other left toe(s); Z79.4 Long term (current) use of insulin

== ENCOUNTER 2017-04-20 07:18 | Inpatient (IN) | payer OTHER ==
[~2017-04-20] VITALS: Ht 160 cm; Wt 87.0 kg
[2017-04-20] VITALS (12 sets, daily range): BP systolic 136–154; BP diastolic 47–66
[~2017-04-20 07:18] MED LIST changes: +ABILIFY5 MG PO; +DRISDOL50000 UNT PO; +FLUTICASONE PR50 MCG; +FUROSEMIDE40 MG PO; +GERI-LANTA; +HYDRALAZINE HCL25 MG PO; +LEVAQUIN250 MG PO; +OXAYDO5 MG PO; +ROXICODONE5 MG PO
--- NOTE | 2017-04-20 08:41 | ED CLINICAL REPORT ---
Clinical Report - Physicians/Mid Levels [facility] [address] [place] [address] 04/20/2017 7:23 Patient: ANDRE DONATO Time Seen: 07:32. Arrived- By ambulance. Historian- patient and EMS personnel. Evaluation limited on presentation, pt could give no significant history - history is via EMS and later, after D-50 IV, pt could provide additional history. HISTORY OF PRESENT ILLNESS Chief Complaint: DECREASED MENTAL STATUS and LOW BLOOD SUGAR. The patient is described as having decreased responsiveness. This started today and is still present. It was gradual in onset and has been constant. No alcohol recently or recent drug use. Prior to arrival, the dextro stick was low. The patient has had constant, generalized weakness. She has had difficulty walking. Usually is alert and oriented X3 and usually has normal mobility. (CODE STATUS: DNR with limited interventions). Similar symptoms previously: Recent medical care: Not recently seen/assessed. REVIEW OF SYSTEMS No fever, difficulty breathing, cough, sore throat or abdominal pain. No diarrhea or vomiting. She has had back pain. All systems otherwise negative, except as recorded above. PAST HISTORY ( PCP: Dr Myers (at [facility] - Dr Heard) Fall. Peripheral Vascular Disease. Diabetes Mellitus Type 2. Gastroesophageal Reflux. Hypertension. Chronic kidney disease stage 4 Depression. Hyperlipidemia. Encephalopathy. UTI - Urinary Tract Infection. Rt AKA.). Medications: Melatonin Oral. Levofloxacin Oral 250 mg, daily. Furosemide Oral 40 mg, daily. Cyanocobalamin 1000MCG daily. Acetaminophen Oral. Amlodipine Besy-Benazepril HCl Oral 10mg, daily. Ascorbic Acid Oral (Tablet Chewable 500 mg) 1 tablet, daily. Atorvastatin Calcium Oral (Tablet 20 mg) 1 tablet, daily. Dulcolax Rectal (Suppository 10 mg) 1 suppository, daily as needed. Ergocalciferol Oral. Ferrous Sulfate Oral 325 mg, 3x a day. Folic Acid Oral (Tablet 1 mg) 1 tablet, daily. HydrALAZINE HCl Injection. Insulin Glargine Subcutaneous 10 units, at bedtime. Insulin Lispro (Human) Subcutaneous. Labetalol HCl Oral (Tablet 100 mg) 1 tablet, 2x a day. Melatonin Oral (Tablet 3 mg) 1 tablet, daily. Milk of Magnesia Oral 1200mg/15ml, daily as needed. Pantoprazole Sodium Oral. Senna Laxative Oral (Tablet 8.6 mg) 1 tablet, daily. Venlafaxine HCl ER Oral 75mg, daily. Allergies: Codeine. SOCIAL HISTORY Former smoker, end date 01/2017. Residence: [facility]) Resides in a custodial. ADDITIONAL NOTES The nursing notes have been reviewed. PHYSICAL EXAM Vital Signs: 04/20/2017 07:26 BP: 128/65. HR: 63. RR: 16. O2 saturation: 93%. 04/20/2017 07:26 Temp: 34.7 C. Appearance: Lethargic. Odor of alcohol is not present. Head: Head atraumatic. ENT: Normal ENT inspection. Airway intact. Dry mucous membranes present. Neck: Normal inspection. Neck supple. CVS: Normal heart rate and rhythm. Pulses normal. Respiratory: No respiratory distress. Breath sounds normal. Abdomen: Nontender. Back: Normal inspection. Skin: Normal skin color. Extremities: Extremities exhibit normal ROM. No calf tenderness. No lower extremity edema. Neuro: Altered mental status. Alertness is decreased. Abnormal verbal response. LABS, X-RAYS, AND EKG EKG: Rate: 60. First-degree atrioventricular block. Non-specific ST segment / T wave abnormalities. Non-specific T wave flattening in lead III and aVF. Non-specific T wave inversion in lead V1, V2 and V3. The study has been interpreted contemporaneously by me. The EKG appears to be a good tracing. Rhythm Strip #1: Normal sinus rhythm. Regular rhythm. Chest X-ray: No acute disease. Views: AP (portable). Technique: good. The X-rays were interpreted by the radiologist and contemporaneously by me. Laboratory Tests: UA-Culture if indicated: (KISHAN: 04/20/2017 08:05) ( MsgRcvd 04/20/2017 08:35) Final results Test Result Flag Units (Reference) URINE COLOR YELLOW URINE APPEARANCE CLEAR URINE GLUCOSE NEGATIVE (NEGATIVE) URINE BILIRUBIN NEGATIVE (NEGATIVE) URINE KETONE NEGATIVE (NEGATIVE) URINE SPECIFIC GRAVITY 1.015 (1.010-1.030) URINE PH 5.0 (5.0-8.0) URINE PROTEIN 2+ (NEGATIVE) URINE UROBILINOGEN 0.2 EU/dL (0.2-1.0) URINE NITRITE NEGATIVE (NEGATIVE) URINE BLOOD NEGATIVE (NEGATIVE) URINE LEUK ESTERASE TRACE (NEGATIVE) URINE RBC 0-1 rbc/hpf (0-1) URINE WBC 5-10 wbc/hpf (0-1) URINE EPITHELIAL CELLS 1-3 EPI/hpf (0-5) URINE BACTERIA FEW (1+) (NONE SEEN) URINE COMMENT CULTURE INDICATED URINE CULTURES ARE SET-UP BASED ON THE FOLLOWING CRITERIA:POSITIVE NITRITEPOSITIVE LEUKOCYTE ESTERASEGREATER THAN 10 WHITE BLOOD CELLSMODERATE (2+) OR GREATER BACTERIA CBC w Diff: (KISHAN: 04/20/2017 07:40) ( [facility] 04/20/[facility] 08:08) Final results Test Result Flag Units (Reference) WHITE BLOOD COUNT 7.8 K/uL (4.5-11.5) RED BLOOD COUNT 2.70 L M/uL (4.00-5.20) HEMOGLOBIN 7.9 L gm/dL (12.0-16.0) HEMATOCRIT 24.3 L % (36.0-46.0) MEAN CELL VOLUME 90 fL (80-100) MEAN CORPUSCULAR HGB 29 pg (26-34) MEAN CORPUSCULAR HGB CONC 32 g/dL (31-37) RED CELL DISTRIBUTION WIDTH 21.5 H % (11.6-14.8) PLATELET COUNT 256 K/uL (150-400) LYMPH % 11.2 L % (25-40) MONO % 2.5 L % (3-14) GRANULOCYTE % 86.3 (53-90) PT with INR: (KISHAN: 04/20/2017 07:40) ( [facility] 04/20/2017 08:29) Final results Test Result Flag Units (Reference) INR 1.1 (0.8-1.2) Low Intensity Therapy: INR 1.5-2.0 PT range 18.5-23.1Mod.Intensity Therapy: INR 2.0-3.0 PT range 23.1-31.5High Intensity Therapy: INR 2.5-3.5 PT range 27.4-35.5High Intensity Therapy 2: INR 3.0-4.0 PT range 31.5-39.3 [id number]: (KISHAN: 04/20/2017 07:33) ( [facility] 04/20/2017 11:18) Final results Test Result Flag Units (Reference) IRON 35 ug/dL (35-150) TOTAL IRON BINDING CAPACITY 146 L ug/dL (260-445) % SATURATION 24 % (15-50) [id number]: (KISHAN: 04/20/2017 07:40) ( [facility] 04/20/2017 10:42) Final results Test Result Flag Units (Reference) CALCULATED A1C 4.4 L % (4.5-6.2) The [place] [employer] recommends that aprimary goal of therapy should be a HbA1c of <7% and thatphysicians should reevaluate the treatment regimen inpatients with HbA1c values consistently >8%. ESTIMATED AVERAGE GLUCOSE 80 mg/dL BNP: (KISHAN: 04/20/2017 07:40) ( [facility] 04/20/2017 08:18) Final results Test Result Flag Units (Reference) B-TYPE NATRIURETIC PEPTIDE 138 H pg/ml (5-100) [id number]: (KISHAN: 04/20/2017 07:40) ( [facility] 04/20/2017 11:52) Final results Test Result Flag Units (Reference) THYROID STIMULATING HORMONE 3.424 uIU/mL (0.30-3.74) VITAMIN B12 981 pg/mL (211-946) FOLATE 89.5 ng/mL (>3.0) CHEM 13 PANEL: (KISHAN: 04/20/2017 07:40) ( [facility] 04/20/2017 08:46) Final results Test Result Flag Units (Reference) CPK 39 U/L (24-260) TROPONIN I <0.05 ng/mL (0.00-1.5) TROPONIN REFERENCE RANGE:<0.1 NEGATIVE0.1-1.5 INDETERMINANT>1.5 POSITIVE GLUCOSE 122 H mg/dL (70-110) BUN 72 *H mg/dL (7-18) CRITICAL RESULTS CALLEDCalled to MATTIE SHAIKH,ER 04/20/17 0838Were 2 patient identifiers used?YWas the result read back? Y CREATININE 4.7 H mg/dL (0.6-1.3) Estimated GFR 9.88 mL/min Estimated GFR- 11.98 mL/min Note: Persistent reduction over 3 months in eGFR<60 mL/min/1.73 m2 defines CKD. Patients with eGFR values>=60 mL/min/1.73 m2 may also have CKD if evidence ofpersistent proteinuria. Additional information may be foundat www.kidney.org. SODIUM 137 mmol/L (136-145) CRITICAL RESULTS CALLEDCalled to 04/20/17 0839Were 2 patient identifiers used?Was the result read back? POTASSIUM 5.7 H mmol/L (3.5-5.1) CHLORIDE 103 mmol/L (98-107) CARBON DIOXIDE 22 mmol/L (21-32) CALCIUM 8.7 mg/dL (8.5-10.1) TOTAL PROTEIN 5.9 L g/dL (6.4-8.2) ALBUMIN 1.9 L g/dL (3.3-5.0) BILIRUBIN, TOTAL 0.4 mg/dL (0.0-1.0) ALKALINE PHOSPHATASE 90 U/L (46-116) AST (SGOT) 12 L U/L (15-37) ALT (SGPT) 8 L U/L (12-78) MAGNESIUM 1.5 L mg/dL (1.8-2.4) . Bedside Tests: Glucose: marked hypoglycemia - 44 (performed by EMS). Subsequent glucose: marked hypoglycemia - "low" (performed at bedside). Pulse Oximetry: 04/20/2017 07:26 O2 saturation: 93%. (FIO2 - room air). Interpretation: hypoxemia. PROGRESS AND PROCEDURES Course of Care: Pt with marked hypoglycemia and hypothermia. Still some evident UTI, but organism was sensitive to levaquin. Pt appears to be dehydrated and has chronic renal failure. Likely not metabolizing insulin as quickly and thus with profound hypoglycemia Physical exam findings are improved. Symptoms much better. 04/20/2017 11:47 BP: 148/79. HR: 74. RR: 14. O2 saturation: 99%. Temp: 35.9 C. Pain level now: 0/10. Critical care performed (60 minutes). Time includes: direct patient care, patient reassessment, coordination of patient care, interpretation of data (laboratory data, pulse oximetry, chest xrays and prior electrocardiograms), review of patient's medical records, medical consultation, family consultation regarding treatment decisions and documentation of patient care. Procedures excluded from critical care time: electrocardiography. Discussed case with hospitalist, (Rupert call placed 08:39 call returned 08:44). Reviewed test results. Agreed upon treatment plan and decision to admit. Health care provider will see patient in ED. Patient/family counseled. Old ED and inpatient records reviewed. Disposition: Admitted to the Critical Care Unit. Condition: serious. CLINICAL IMPRESSION Hypoglycemia with coma- associated with type 2 diabetes and use of insulin. Severe dehydration. Acute urinary tract infection with cystitis and pyelonephritis (resolving). Anemia associated with chronic disease and chronic renal disease. Hyperkalemia. Moderate hypothermia with altered mental status and coma in the field and upon arrival at the ED. No hypothermia secondary to immersion or exposure. (Electronically signed by Marcos Hopkins DO 04/20/2017 13:04) Addenda for ANDRE DONATO VisitID: [id number] Date: 04/20/2017 05/15/2017 6:36 chart locked for processing (Electronically signed by Rohini Mcdonald R.N. - 05/15/2017 6:36)
--- NOTE | 2017-04-20 08:41 | ED ORDER SUMMARY ---
..... Patient: ANDRE DONATO OrderSheet [facility] VisitID: [id number] [address] [place] [address] 66y, F Registration Date/Time: 04/20/2017 ORDER SHEET Weight: 86.1 kg (stated) Allergies: Codeine GENERAL ORDERS: Chest 1V Urgent (:04/20/2017 PHutchinson DO) (Ack 7:35 OHernandez) (8:22 SReitz R.N.) Clinical Documentation Spec (Continuous) (:04/20/2017 PHutchinson DO) (Ack 7:36 OHernandez) (7:39 SReitz R.N.) UA-Culture if indicated Urgent (:04/20/2017 PHutchinson DO) (Ack 7:35 OHernandez) (8:18 KWilliams R.N.) Cardiac Panel Stat (:04/20/2017 PHutchinson DO) (Ack 7:35 OHernandez) (8:18 KWilliams R.N.) BNP Urgent (:04/20/2017 PHutchinson DO) (Ack 7:35 OHernandez) (8:18 KWilliams R.N.) PT with INR Urgent (:04/20/2017 PHutchinson DO) (Ack 7:35 OHernandez) (8:19 KWilliams R.N.) TSH Urgent (:04/20/2017 PHutchinson DO) (Ack 7:35 OHernandez) (8:19 KWilliams R.N.) Oxygen (2 L/min) (NC) (:04/20/2017 PHutchinson DO) (Ack 7:36 OHernandez) (7:39 SReitz R.N.) Pulse oximeter (:04/20/2017 PHutchinson DO) (Ack 7:36 OHernandez) (7:39 SReitz R.N.) EKG - ER Stat (:04/20/2017 PHutchinson DO) (Ack 7:35 OHernandez) (8:19 KWilliams R.N.) Vitals (:04/20/2017 [facility]) (Ack 7:36 Britany) (8:19 KWilliams R.N.) Blood Culture (Yes) (Levaquin) Urgent (08:52 04/20/2017 [facility]) (Ack 9:02 Britany) (10:07 SReitz R.N.) MEDICATION ORDERS: IV FLUIDS: IV NS : initial bolus 250 mL (1000 mL/hr), then 125 mL/hr for X5 (NOW) (07:33 04/20/2017 [facility]) (8:21 SReitz R.N.) D-50 IV 1 amp (HIGH ALERT MEDICATION, NOW, IVP) (07:33 04/20/2017 [facility]) (8:18 KWheatherams R.N.) Ceftriaxone IV 1 gm/50mL (NOW) (08:41 04/20/2017 [facility]) (Ack 8:43 SReitz R.N.) (Cancelled: canceled per Dr Emery10:32 SReitz R.N.) IV D5W NS : initial bolus none -, then 200 mL/hr for X1 (NOW) (verbal order per Dr. Emery) (10:08 04/20/2017 SReitz R.N. verbal order read back to Rosanne BRANCH) (10:18 SReitz R.N.) ORDER SHEET NOTES: [Electronically signed by Marcos Hopkins DO (13:04 04/20/2017)] [Electronically signed by Rohini Mcdonald R.N. (06:36 05/15/2017)] [Electronically locked/signed by Rohini Mcdonald R.N. (06:36 05/15/2017)]
--- NOTE | 2017-04-20 08:41 | ED CLINICAL REPORT ---
Clinical Report - Physicians/Mid Levels [facility] [address] [place] [address] 04/20/2017 7:23 Patient: ANRDE DONATO Time Seen: 07:32. Arrived- By ambulance. Historian- patient and EMS personnel. Evaluation limited on presentation, pt could give no significant history - history is via EMS and later, after D-50 IV, pt could provide additional history. HISTORY OF PRESENT ILLNESS Chief Complaint: DECREASED MENTAL STATUS and LOW BLOOD SUGAR. The patient is described as having decreased responsiveness. This started today and is still present. It was gradual in onset and has been constant. No alcohol recently or recent drug use. Prior to arrival, the dextro stick was low. The patient has had constant, generalized weakness. She has had difficulty walking. Usually is alert and oriented X3 and usually has normal mobility. (CODE STATUS: DNR with limited interventions). Similar symptoms previously: Recent medical care: Not recently seen/assessed. REVIEW OF SYSTEMS No fever, difficulty breathing, cough, sore throat or abdominal pain. No diarrhea or vomiting. She has had back pain. All systems otherwise negative, except as recorded above. PAST HISTORY ( PCP: Dr Myers (at [facility] - Dr Heard) Fall. Peripheral Vascular Disease. Diabetes Mellitus Type 2. Gastroesophageal Reflux. Hypertension. Chronic kidney disease stage 4 Depression. Hyperlipidemia. Encephalopathy. UTI - Urinary Tract Infection. Rt AKA.). Medications: Melatonin Oral. Levofloxacin Oral 250 mg, daily. Furosemide Oral 40 mg, daily. Cyanocobalamin 1000MCG daily. Acetaminophen Oral. Amlodipine Besy-Benazepril HCl Oral 10mg, daily. Ascorbic Acid Oral (Tablet Chewable 500 mg) 1 tablet, daily. Atorvastatin Calcium Oral (Tablet 20 mg) 1 tablet, daily. Dulcolax Rectal (Suppository 10 mg) 1 suppository, daily as needed. Ergocalciferol Oral. Ferrous Sulfate Oral 325 mg, 3x a day. Folic Acid Oral (Tablet 1 mg) 1 tablet, daily. HydrALAZINE HCl Injection. Insulin Glargine Subcutaneous 10 units, at bedtime. Insulin Lispro (Human) Subcutaneous. Labetalol HCl Oral (Tablet 100 mg) 1 tablet, 2x a day. Melatonin Oral (Tablet 3 mg) 1 tablet, daily. Milk of Magnesia Oral 1200mg/15ml, daily as needed. Pantoprazole Sodium Oral. Senna Laxative Oral (Tablet 8.6 mg) 1 tablet, daily. Venlafaxine HCl ER Oral 75mg, daily. Allergies: Codeine. SOCIAL HISTORY Former smoker, end date 01/2017. Residence: [facility]) Resides in a mcc. ADDITIONAL NOTES The nursing notes have been reviewed. PHYSICAL EXAM Vital Signs: 04/20/2017 07:26 BP: 128/65. HR: 63. RR: 16. O2 saturation: 93%. 04/20/2017 07:26 Temp: 34.7 C. Appearance: Lethargic. Odor of alcohol is not present. Head: Head atraumatic. ENT: Normal ENT inspection. Airway intact. Dry mucous membranes present. Neck: Normal inspection. Neck supple. CVS: Normal heart rate and rhythm. Pulses normal. Respiratory: No respiratory distress. Breath sounds normal. Abdomen: Nontender. Back: Normal inspection. Skin: Normal skin color. Extremities: Extremities exhibit normal ROM. No calf tenderness. No lower extremity edema. Neuro: Altered mental status. Alertness is decreased. Abnormal verbal response. LABS, X-RAYS, AND EKG EKG: Rate: 60. First-degree atrioventricular block. Non-specific ST segment / T wave abnormalities. Non-specific T wave flattening in lead III and aVF. Non-specific T wave inversion in lead V1, V2 and V3. The study has been interpreted contemporaneously by me. The EKG appears to be a good tracing. Rhythm Strip #1: Normal sinus rhythm. Regular rhythm. Chest X-ray: No acute disease. Views: AP (portable). Technique: good. The X-rays were interpreted by the radiologist and contemporaneously by me. Laboratory Tests: UA-Culture if indicated: (KISHAN: 04/20/2017 08:05) ( MsgRcvd 04/20/2017 08:35) Final results Test Result Flag Units (Reference) URINE COLOR YELLOW URINE APPEARANCE CLEAR URINE GLUCOSE NEGATIVE (NEGATIVE) URINE BILIRUBIN NEGATIVE (NEGATIVE) URINE KETONE NEGATIVE (NEGATIVE) URINE SPECIFIC GRAVITY 1.015 (1.010-1.030) URINE PH 5.0 (5.0-8.0) URINE PROTEIN 2+ (NEGATIVE) URINE UROBILINOGEN 0.2 EU/dL (0.2-1.0) URINE NITRITE NEGATIVE (NEGATIVE) URINE BLOOD NEGATIVE (NEGATIVE) URINE LEUK ESTERASE TRACE (NEGATIVE) URINE RBC 0-1 rbc/hpf (0-1) URINE WBC 5-10 wbc/hpf (0-1) URINE EPITHELIAL CELLS 1-3 EPI/hpf (0-5) URINE BACTERIA FEW (1+) (NONE SEEN) URINE COMMENT CULTURE INDICATED URINE CULTURES ARE SET-UP BASED ON THE FOLLOWING CRITERIA:POSITIVE NITRITEPOSITIVE LEUKOCYTE ESTERASEGREATER THAN 10 WHITE BLOOD CELLSMODERATE (2+) OR GREATER BACTERIA CBC w Diff: (KISHAN: 04/20/2017 07:40) ( [facility] 04/20/2017 08:08) Final results Test Result Flag Units (Reference) WHITE BLOOD COUNT 7.8 K/uL (4.5-11.5) RED BLOOD COUNT 2.70 L M/uL (4.00-5.20) HEMOGLOBIN 7.9 L gm/dL (12.0-16.0) HEMATOCRIT 24.3 L % (36.0-46.0) MEAN CELL VOLUME 90 fL (80-100) MEAN CORPUSCULAR HGB 29 pg (26-34) MEAN CORPUSCULAR HGB CONC 32 g/dL (31-37) RED CELL DISTRIBUTION WIDTH 21.5 H % (11.6-14.8) PLATELET COUNT 256 K/uL (150-400) LYMPH % 11.2 L % (25-40) MONO % 2.5 L % (3-14) GRANULOCYTE % 86.3 (53-90) PT with INR: (KISHAN: 04/20/2017 07:40) ( [facility] 04/20/2017 08:29) Final results Test Result Flag Units (Reference) INR 1.1 (0.8-1.2) Low Intensity Therapy: INR 1.5-2.0 PT range 18.5-23.1Mod.Intensity Therapy: INR 2.0-3.0 PT range 23.1-31.5High Intensity Therapy: INR 2.5-3.5 PT range 27.4-35.5High Intensity Therapy 2: INR 3.0-4.0 PT range 31.5-39.3 [id number]: (KISHAN: 04/20/2017 07:33) ( [facility] [place] 04/20/[place] 11:18) Final results Test Result Flag Units (Reference) IRON 35 ug/dL (35-150) TOTAL IRON BINDING CAPACITY 146 L ug/dL (260-445) % SATURATION 24 % (15-50) [id number]: (KISHAN: 04/20/2017 07:40) ( [facility] 04/20/2017 10:42) Final results Test Result Flag Units (Reference) CALCULATED A1C 4.4 L % (4.5-6.2) The [place] [employer] recommends that aprimary goal of therapy should be a HbA1c of <7% and thatphysicians should reevaluate the treatment regimen inpatients with HbA1c values consistently >8%. ESTIMATED AVERAGE GLUCOSE 80 mg/dL BNP: (KISHAN: 04/20/2017 07:40) ( [facility] 04/20/2017 08:18) Final results Test Result Flag Units (Reference) B-TYPE NATRIURETIC PEPTIDE 138 H pg/ml (5-100) [id number]: (KISHAN: 04/20/2017 07:40) ( [facility] 04/20/2017 11:52) Final results Test Result Flag Units (Reference) THYROID STIMULATING HORMONE 3.424 uIU/mL (0.30-3.74) VITAMIN B12 981 pg/mL (211-946) FOLATE 89.5 ng/mL (>3.0) CHEM 13 PANEL: (KISHAN: 04/20/2017 07:40) ( [facility] [place] 04/20/2017 08:46) Final results Test Result Flag Units (Reference) CPK 39 U/L (24-260) TROPONIN I <0.05 ng/mL (0.00-1.5) TROPONIN REFERENCE RANGE:<0.1 NEGATIVE0.1-1.5 INDETERMINANT>1.5 POSITIVE GLUCOSE 122 H mg/dL (70-110) BUN 72 *H mg/dL (7-18) CRITICAL RESULTS CALLEDCalled to MATTIE SHAIKH,ER 04/20/17 0838Were 2 patient identifiers used?YWas the result read back? Y CREATININE 4.7 H mg/dL (0.6-1.3) Estimated GFR 9.88 mL/min Estimated GFR- 11.98 mL/min Note: Persistent reduction over 3 months in eGFR<60 mL/min/1.73 m2 defines CKD. Patients with eGFR values>=60 mL/min/1.73 m2 may also have CKD if evidence ofpersistent proteinuria. Additional information may be foundat [email or web address].org. SODIUM 137 mmol/L (136-145) CRITICAL RESULTS CALLEDCalled to 04/20/17 0839Were 2 patient identifiers used?Was the result read back? POTASSIUM 5.7 H mmol/L (3.5-5.1) CHLORIDE 103 mmol/L (98-107) CARBON DIOXIDE 22 mmol/L (21-32) CALCIUM 8.7 mg/dL (8.5-10.1) TOTAL PROTEIN 5.9 L g/dL (6.4-8.2) ALBUMIN 1.9 L g/dL (3.3-5.0) BILIRUBIN, TOTAL 0.4 mg/dL (0.0-1.0) ALKALINE PHOSPHATASE 90 U/L (46-116) AST (SGOT) 12 L U/L (15-37) ALT (SGPT) 8 L U/L (12-78) MAGNESIUM 1.5 L mg/dL (1.8-2.4) . Bedside Tests: Glucose: marked hypoglycemia - 44 (performed by EMS). Subsequent glucose: marked hypoglycemia - "low" (performed at bedside). Pulse Oximetry: 04/20/2017 07:26 O2 saturation: 93%. (FIO2 - room air). Interpretation: hypoxemia. PROGRESS AND PROCEDURES Course of Care: Pt with marked hypoglycemia and hypothermia. Still some evident UTI, but organism was sensitive to levaquin. Pt appears to be dehydrated and has chronic renal failure. Likely not metabolizing insulin as quickly and thus with profound hypoglycemia Physical exam findings are improved. Symptoms much better. 04/20/2017 11:47 BP: 148/79. HR: 74. RR: 14. O2 saturation: 99%. Temp: 35.9 C. Pain level now: 0/10. Critical care performed (60 minutes). Time includes: direct patient care, patient reassessment, coordination of patient care, interpretation of data (laboratory data, pulse oximetry, chest xrays and prior electrocardiograms), review of patient's medical records, medical consultation, family consultation regarding treatment decisions and documentation of patient care. Procedures excluded from critical care time: electrocardiography. Discussed case with hospitalist, (Rupert call placed 08:39 call returned 08:44). Reviewed test results. Agreed upon treatment plan and decision to admit. Health care provider will see patient in ED. Patient/family counseled. Old ED and inpatient records reviewed. Disposition: Admitted to the Critical Care Unit. Condition: serious. CLINICAL IMPRESSION Hypoglycemia with coma- associated with type 2 diabetes and use of insulin. Severe dehydration. Acute urinary tract infection with cystitis and pyelonephritis (resolving). Anemia associated with chronic disease and chronic renal disease. Hyperkalemia. Moderate hypothermia with altered mental status and coma in the field and upon arrival at the ED. No hypothermia secondary to immersion or exposure. (Electronically signed by Marcos Hopkins DO 04/20/2017 13:04) Addenda for ANDRE DONATO VisitID: [id number] Date: 04/20/2017 05/15/2017 6:36 chart locked for processing (Electronically signed by Rohini Mcdonald R.N. - 05/15/2017 6:36)
--- NOTE | 2017-04-20 08:41 | ED NURSING NOTES ---
Clinical Report - Nurses [facility] [address] [place] [address] 04/20/2017 7:23 Patient: ANDRE DONATO TRIAGE Triage time 07:26. Acuity: LEVEL 2. Chief Complaint: (decreased LOC and low blood sugar). Alert. ( Pt. lives at [facility] and brought in by EMS due to decreased LOC. Pt. BS in the field was 44. Pt. given 12.5gms of glucagon. BS after glucagon 132 but dropped shortly after to 67.). SEPSIS SCREEN: Sepsis Screen. Negative (no infection suspected/documented). ALICE COMA SCORE: [place] Coma Scale: 15- eyes open spontaneously (4); best verbal response- oriented x 4 (5); best motor response- obeys commands (6). --07:38 Daisy Knight R.N. 07:04/20/17. BP: 128/65. HR: 63. RR: 16. O2 saturation: 93%. --07:38 Daisy Knight R.N. 07:04/20/17. Temp: 34.7 C. --08:36 Daisy Knight R.N. Weight: 86.1 kg stated. Height/Length: 63 inches Per Patient. BMI: 33.6. --07:32 Daisy Knight R.N. Medications Acetaminophen Oral. Amlodipine Besy-Benazepril HCl Oral 10mg, daily. Ascorbic Acid Oral (Tablet Chewable 500 mg) 1 tablet, daily. Atorvastatin Calcium Oral (Tablet 20 mg) 1 tablet, daily. Dulcolax Rectal (Suppository 10 mg) 1 suppository, daily as needed. Ergocalciferol Oral. Ferrous Sulfate Oral 325 mg, 3x a day. Folic Acid Oral (Tablet 1 mg) 1 tablet, daily. HydrALAZINE HCl Injection. Insulin Glargine Subcutaneous 10 units, at bedtime. Insulin Lispro (Human) Subcutaneous. Labetalol HCl Oral (Tablet 100 mg) 1 tablet, 2x a day. Melatonin Oral (Tablet 3 mg) 1 tablet, daily. Milk of Magnesia Oral 1200mg/15ml, daily as needed. Pantoprazole Sodium Oral. Senna Laxative Oral (Tablet 8.6 mg) 1 tablet, daily. Venlafaxine HCl ER Oral 75mg, daily. --07:37 Daisy Knight R.N. Cyanocobalamin 1000MCG daily. --09:18 Daisy Knight R.N. Furosemide Oral 40 mg, daily. --09:18 Daisy Knight R.N. Levofloxacin Oral 250 mg, daily. --09:21 Daisy Knight R.N. Melatonin Oral. --09:21 Daisy Knight R.N. The following entry was struck and corrected by Daisy Knight R.N., 09:19 (04/20/17) Reason for correction - other(correction). <<STRICKEN ENTRY-- Insulin Glargine Subcutaneous. --07:37 Daisy Knight R.N. --END STRIKE>>. Allergies Codeine. --07:37 Daisy Knight R.N. History Arrived by EMS. Historian: EMS and patient. Unaccompanied. Primary physician (Dr. Heard). This started today. ( POC BS: < 44). Treatment SIGN LANGUAGE TRANSLATOR: (glucagon 12.5gm). PAST MEDICAL HX: Immunizations: up-to-date. SOCIAL HX: Light tobacco smoker (cigarette)- less than 1/2 a pack per day. Alcohol use. No drug use. ABUSE ASSESSMENT: No report of abuse. SELF HARM ASSESSMENT: A self harm assessment was performed. The patient answered "no" to the question "Do you have thoughts of harming or killing yourself?" and "Have you recently had thoughts about harming or killing others?". NUTRITIONAL RISK ASSESSMENT: The nutritional risk assessment revealed no deficiencies. FUNCTIONAL ASSESSMENT: Functional assessment: no impairments noted. Functional assessment performed: requires assistance with the activities of daily living; uses wheelchair. LEARNING NEEDS ASSESSMENT: The learning needs assessment revealed no barriers. FALL RISK ASSESSMENT: Fall risk assessment completed per protocol. Risk factors identified include dizziness and patient medications, age greater than 65 years and history of fall. Fall interventions initiated. Patient placed on stretcher. Side rails up x2. Brakes on Bed in low position. Patient visible from nurses' station and identified as a fall risk by ID band. Call light in reach of patient. --07:38 Daisy Knight R.N. FUNCTIONAL ASSESSMENT: Functional assessment performed: requires total care with the activities of daily living. correction to prior: daughter states pt. is total care. --08:28 Daisy Knight R.N. Primary physician (Dr. Zion Myers @ [facility]). --08:55 Daisy Knight R.N. PROBLEMS: Hypothermia. Pressure Ulcer. COPD - Chronic Obstructive Pulmonary Disease. Diabetes Mellitus. Renal Failure. Anemia. Fall. Peripheral Vascular Disease. Diabetes Mellitus Type 2. Gastroesophageal Reflux. Hypertension. Chronic kidney disease. Depression. Hyperlipidemia. Encephalopathy. UTI - Urinary Tract Infection. --07:38 Daisy Knight R.N. ADDITIONAL SURGERIES: Amputation Below Knee. Amputation Lower Extremity. Hip Surgery. Hysterectomy. --07:38 Daisy Knight R.N. Interventions ID band on patient. Transported via stretcher. --07:38 Daisy Knight R.N. Allergy band on patient. --08:42 Daisy Knight R.N. PHYSICAL ASSESSMENT 07:55. To room via stretcher. GENERAL / NEURO / PSYCH: Alert. Oriented X 4. ( Pt. is alert and oriented but slow to respond to questions. Has slurred speech.). HEENT: No facial asymmetry noted. RESPIRATORY: Respirations not labored. CVS: Capillary refill less than 2 seconds. Pulses within normal limits. GI / : ( pt. has retractable hernia; right lower abd.). Abdomen soft and nontender. EXTREMITIES: 2+ pitting edema of the left lower extremity involving the foot, ankle and lower leg. pulses present WNL. SKIN: Skin intact. Skin is dry. ( pt. in incontinent of urine and stool. Changed linens and attends.). Skin breakdown noted; present on arrival. (erythema on coccyx. Barrier cream applied.). --08:18 Daisy Knight R.N. 07:55. SKIN: ( Pt's RLE has above the knee amputation. Left hip fracture repair: sutures present and healing.). --08:27 Antonia, Daisy, R.N. NURSING PROGRESS NOTES 07:30 04/20/2017 Site #1 started prior to arrival by EMS via IV in the left with an 18g angiocath. --08:17 Daniel Christine R.N. 07:45. potline monitor and pulse oximeter placed on patient; surveillance system monitor- Lead II; monitor alarms on. Patient gowned. Head of bed elevated. Two patient identifiers checked. Call light placed in reach. Side rails up x 2. Bed placed in lowest position. Brakes of bed on. Patient ready for evaluation- chart flagged. --08:18 Daisy Knight R.N. 07:35 04/20/2017 D-50 IVP 1 Amp given over 1 minute(s) via site #1. Allergies verified and confirmed 5 rights. IV patency established. IV site checked: no pain, redness, or swelling. IV flushed thoroughly pre- and post-medication administration. IVP given by RN. --08:18 Daniel Christine R.N. EKG time: (747). EKG was ordered, performed by a nurse and shown to the ED physician. --08:18 Daisy Knight R.N. 07:50. Patient ID band checked for patient name, birthdate and medical record number: patient confirmed. Blood samples drawn from the left hand peripheral IV site by nurse per protocol ; labeled in presence of the patient and sent to lab: taurus set. --08:21 Daisy Knight R.N. 07:35 04/20/2017 Started bag #1 1000 IV Fluids IV NS (Saline); at 1000 mL/hr over 1 hour(s) via site #1 via IV pump. Allergies verified and confirmed 5 rights. IV patency established. IV site checked: no pain, redness, or swelling. IV flushed thoroughly pre- and post-medication administration (verbal order for 1000cc/hr given.). --08:29 Daisy Knight R.N. <<STRICKEN ENTRY-- 07:45 04/20/2017 Started bag #1 1000 mL IV Fluids IV NS (Saline); at 1000 mL/hr over 1 hour(s) via site #1 via IV pump. Allergies verified and confirmed 5 rights. IV patency established. IV site checked: no pain, redness, or swelling. IV flushed thoroughly pre- and post-medication administration. --08:21 Daisy Knight R.N. --END STRIKE>> Other. --08:29 Daisy Knight R.N. Portable chest x-ray performed and shown to the ED physician. --08:32 Daisy Knight R.N. 07:55. Oxygen administered by nasal cannula at 2 liters. Warming measures: blanket and warming unit applied. --08:36 Daisy Knight R.N. Finger stick glucose: 62 mg/dL; ordered; performed by nurse; result shown to the ED physician. --08:37 Daisy Knight R.N. 08:37 04/20/17. BP: 139/61. HR: 66. RR: 16. O2 saturation: 98% on nasal cannula at 2 liters/minute. Pain level now: 2/10. Additional comments: pt. remains alert and oriented. . --08:38 Daisy Knight R.N. 08:00. 14 fr temperature sensing booker catheter. Reason for indwelling catheter: patient's decreased level of consciousness. During procedure hand hygiene observed and sterile equipment and aseptic technique used. Return of 800 mL yellow-colored clear urine; attached to bedside drainage bag positioned below the bladder and urimeter and secured with stabilization device. She tolerated procedure well. --08:41 Daisy Knight R.N. Critical value relayed to ED by [facility]. Critical value received by Daisy Laws RN. BUN: 72. Critical value read back. Verified lab result and patient ID. Patient ID band checked for patient name, birthdate and medical record number: patient confirmed. ED physician notifed of critical value. --08:49 Daisy Knight R.N. ( IV fluids placed on fluid warmer.). --09:00 Daisy Knight R.N. ( lab at the bedside to draw cultures.). --09:00 Daisy Knight R.N. 09:00 04/20/17. BP: 144/65. HR: 66. RR: 16. O2 saturation: 98%. Temp: 34.8 C. --09:01 Daisy Knight R.N. ( lab remains at the bedside to draw cultures. Multiple attempts to obtain sample.). --09:31 Daisy Knight R.N. ( Dr Emery at the bedside for admit consult.). --10:02 Daisy Knight R.N. Finger stick glucose: 57 mg/dL; ordered; performed by tech; result shown to the RN. --10:06 Loyda Tanner 10:18 04/20/2017 Started bag #1 1000 mL IV Fluids IV D5W NS (Dextrose-NaCl); at 200 mL/hr over 4 hour(s) via site #1 via IV pump. Allergies verified and confirmed 5 rights. IV patency established. IV site checked: no pain, redness, or swelling. IV flushed thoroughly pre- and post-medication administration. --10:18 Daisy Knight R.N. 10:18 04/20/2017 IV Fluids IV NS Discontinued: bag #1 infused. Total amount infused: 800 mL. IV patency established. IV site checked: no pain, redness, or swelling. IV flushed thoroughly. --10:18 Daisy Knight R.N. 10:18 04/20/17. BP: 157/57. HR: 68. RR: 10. O2 saturation: 99% on nasal cannula at 2 liters/minute. Temp: 35.3 C. --10:20 Daisy Knight R.N. 11:06 04/20/17. BP: 140/51. HR: 71. RR: 21. O2 saturation: 97% on nasal cannula at 2 liters/minute. --11:06 Daisy Knight R.N. Patient hygiene performed. Patient is incontinent of stool and urine. Stool described as loose. Changed patient gown, linens and diaper. Assisted by x3 RNs. --11:34 Daisy Knight R.N. Finger stick glucose: 90 mg/dL; ordered; performed by nurse; result shown to the ED physician. --11:49 Daisy Knight R.N. 12:00 04/20/2017 IV Fluids IV D5W NS Continued: at the rate of 200 mL/hr. 700 mL remaining. IV patency established. IV site checked: no pain, redness, or swelling. IV flushed thoroughly. --12:00 Daisy Knight R.N. Intake & Output Urine: 250 mL, with return of yellow-colored clear urine. --11:35 Daisy Knight R.N. DISPOSITION / DISCHARGE Report was given to a nurse via a phone call. Report included patient's care, treatment, medications, reviewed medication reconcilliation, and condition (including any recent changes or anticipated changes). All questions were answered. --11:43 Daisy Knight R.N. Patient's personal items; items were placed in belongings bag, given to the patient and transported with the patient. --11:44 Daisy Knight R.N. ALICE COMA SCORE: [place] Coma Scale: 15- eyes open spontaneously (4); best verbal response- oriented x 4 (5); best motor response- obeys commands (6). --11:48 Daisy Knight R.N. 11:47 04/20/17. BP: 148/79. HR: 74. RR: 14. O2 saturation: 99% on nasal cannula at 2 liters/minute. Temp: 35.9 C. Pain level now: 0/10. --11:48 Daisy Knight R.N. Locked/Released at 05/15/2017 6:36 by Rohini Mcdonald R.N.
--- NOTE | 2017-04-20 08:41 | ED ORDER SUMMARY ---
..... Patient: ANDRE DONATO OrderSheet [facility] VisitID: [id number] [address] [place] [address] 66y, F Registration Date/Time: 04/20/2017 ORDER SHEET Weight: 86.1 kg (stated) Allergies: Codeine GENERAL ORDERS: Chest 1V Urgent (:04/20/2017 PHutchinson DO) (Ack 7:35 OHernandez) (8:22 SReitz R.N.) Elevator Constructor Supervisor (Continuous) (:04/20/2017 PHutchinson DO) (Ack 7:36 OHernandez) (7:39 SReitz R.N.) UA-Culture if indicated Urgent (:04/20/2017 PHutchinson DO) (Ack 7:35 OHernandez) (8:18 KWilliams R.N.) Cardiac Panel Stat (:04/20/2017 PHutchinson DO) (Ack 7:35 OHernandez) (8:18 KWilliams R.N.) BNP Urgent (:04/20/2017 PHutchinson DO) (Ack 7:35 OHernandez) (8:18 KWilliams R.N.) PT with INR Urgent (:04/20/2017 PHutchinson DO) (Ack 7:35 OHernandez) (8:19 KWilliams R.N.) TSH Urgent (:04/20/2017 PHutchinson DO) (Ack 7:35 OHernandez) (8:19 KWilliams R.N.) Oxygen (2 L/min) (NC) (:04/20/2017 PHutchinson DO) (Ack 7:36 OHernandez) (7:39 SReitz R.N.) Pulse oximeter (:04/20/2017 PHutchinson DO) (Ack 7:36 OHernandez) (7:39 SReitz R.N.) EKG - ER Stat (:04/20/2017 PHutchinson DO) (Ack 7:35 OHernandez) (8:19 KWilliams R.N.) Vitals (:04/20/2017 [facility]) (Ack 7:36 Britany) (8:19 KWilliams R.N.) Blood Culture (Yes) (Levaquin) Urgent (08:52 04/20/2017 [facility]) (Ack 9:02 Britany) (10:07 SReitz R.N.) MEDICATION ORDERS: IV FLUIDS: IV NS : initial bolus 250 mL (1000 mL/hr), then 125 mL/hr for X5 (NOW) (07:33 04/20/2017 [facility]) (8:21 SReitz R.N.) D-50 IV 1 amp (HIGH ALERT MEDICATION, NOW, IVP) (07:33 04/20/2017 [facility]) (8:18 KWheatherams R.N.) Ceftriaxone IV 1 gm/50mL (NOW) (08:41 04/20/2017 [facility]) (Ack 8:43 SReitz R.N.) (Cancelled: canceled per Dr Emery10:32 SReitz R.N.) IV D5W NS : initial bolus none -, then 200 mL/hr for X1 (NOW) (verbal order per Dr. Emery) (10:08 04/20/2017 SReitz R.N. verbal order read back to Rosanne BRANCH) (10:18 SReitz R.N.) ORDER SHEET NOTES: [Electronically signed by Marcos Hopkins DO (13:04 04/20/2017)] [Electronically signed by Rohini Mcdonald R.N. (06:36 05/15/2017)] [Electronically locked/signed by Rohini Mcdonald R.N. (06:36 05/15/2017)]
--- NOTE | 2017-04-20 09:00 | DIAGNOSTIC IMAGING REPORT ---
PROCEDURE: XR CHEST 1 VIEW INDICATION: SHORTNESS OF BREATH TECHNIQUE: Portable AP view (0825 hours). COMPARISON: Compared to chest x-ray on 04/15/2017. FINDINGS: Allowing for the patient and overlying wires and electrodes, lungs are clear. Heart and mediastinum are normal. Thorax is normal. IMPRESSION: 1. Negative chest.
--- NOTE | 2017-04-20 10:13 | Progress Note ---
Subjective General Admission History and Physical Examination Patient Name: Miriam Haas Admission Date: April 20, 2017 Primary Care Provider: Hossein Heard MD Attending Physician: Roman Emery MD Admitting Physician: Roman Emery M.D. Code Status: NO CODE Room: 306 Status: Inpatient, CCU SUBJECTIVE Historian: Patient and family Reliability: Fair Chief Complaint: Hypoglycemia, hypothermia, weakness, mental status changes History of Present Illness: The patient is a 66-year-old white female with a significant past medical history of type 2 diabetes mellitus-insulin requiring, hyperlipidemia, hypertension, chronic kidney disease stage IV, gastroesophageal reflux, depression, recurrent UTI, who presented to [facility] emergency room on the day of admission secondary to complaints of hypoglycemia hypothermia weakness with associated mental status changes. [facility] ER evaluation was consistent with UTI, hypothermia, hypoglycemia, and altered mental status. Secondary to the above, the patient was admitted by Roman Emery M.D. for further evaluation and treatment. The history of present illness began on the day of admission when the patient was noted to have hypoglycemia and hypothermia at her snf facility. The patient is unable to give any history as she was noted to have altered mental status at time of admission associated with her hypothermia and hypo- glycemia. No other history is available at this time. [facility] ER evaluation showed the patient to have findings as noted above with hypoglycemia, hypothermia, UTI, and altered mental status. This is similar to recent hospitalization on . Secondary to the above the patient was admitted to the medical intensive care unit by Roman Emery M.D. for further evaluation and treatment. PAST MEDICAL HISTORY Illnesses: 1. Diabetes mellitus 2. Peripheral arterial disease 3. Hypertension 4. Chronic kidney disease stage IV 5. Hyperlipidemia Allergies: 1. Codeine Medications: Acetaminophen Oral. Amlodipine Besy-Benazepril HCl Oral 10mg, daily. Ascorbic Acid Oral (Tablet Chewable 500 mg) 1 tablet, daily. Atorvastatin Calcium Oral (Tablet 20 mg) 1 tablet, daily. Dulcolax Rectal (Suppository 10 mg) 1 suppository, daily as needed. Ergocalciferol dosage unknown Ferrous Sulfate Oral 325 mg, 3x a day. Folic Acid Oral (Tablet 1 mg) 1 tablet, daily. Hydralazine dosage unknown Lantus insulin dosage unknown Humalog insulin dosage unknown Labetalol HCl Oral (Tablet 100 mg) 1 tablet, 2x a day. Melatonin Oral (Tablet 3 mg) 1 tablet, daily. Milk of Magnesia Oral 1200mg/15ml, daily as needed. Pantoprazole Sodium Oral. Senna Laxative Oral (Tablet 8.6 mg) 1 tablet, daily. Venlafaxine HCl ER Oral 75mg, daily. Surgery: 1. Hip fracture-ORIF 2. Right AKA 3. Toe amputation left foot 4. Hysterectomy 5. Cholecystectomy Injuries: 1. No significant Hospitalizations: 1. For above mentioned surgery and medical problems FAMILY HISTORY Parents: 1. Father, , age unknown cause unknown, 2. Mother, , 91, metastatic carcinoma Siblings: 1. None Children: 1. The patient has 5 children without significant medical problems Other significant family history: None SOCIAL HISTORY 1. Marital Status: 2. Mu-Ism: Hindu-Voodoo 3. Education: High school 4. Employment History: Retired 5. Occupational health exposures: None HABITS 1. Tobacco: 44 pack years, stopped 2017 2. Drugs: None 3. Alcohol: None 4. Caffeine: None HEALTH SUPERVISION Item/Test 1. Unknown IMMUNIZATIONS: 1. Pneumococcal: Unknown 2. Influenza: Unknown 3. Tetanus: Unknown ADVANCED DIRECTIVES: 1. Living well: No 2. POLST: Yes 3. Code Status: NO CODE 4. Durable Power Registered Diet Technician Health care: Yes 5. Donor card: No REVIEW OF SYSTEMS Remarkable for those things stated in the history of present illness and past medical history. Seventeen point review of system completed with the following notable findings: History unobtainable secondary to patient's mental status Physical Exam General Appearance Cooperative, No acute distress, lethargic, Mild confusion. HEENT Atraumatic, PERRLA, EOMI, Moist mucous membranes Lungs Clear to auscultation, Normal air movement Neck Supple, No JVD Cardiovascular Regular rate and rhythm, Normal S1 and S2, Grade 2/6 systolic murmur, 2+ edema ankle (L) leg Abdomen Normal bowel sounds, Soft, No tenderness Extremities No cyanosis, No clubbing, Edema as above, Right AKA. Left toe amputation. Neurological Cranial nerves intact, No lateralizing signs, confused. Psych/Mental Status Mood normal, Confused LAB Results Laboratory Tests 04/20 04/20 04/20 04/20 0805 0740 0740 0740 Chemistry Plasma Sodium (136 - 145 mmol/L) 137 Plasma Potassium (3.5 - 5.1 mmol/L) 5.7 Plasma Chloride (98 - 107 mmol/L) 103 CO2 (Enzymatic) (21 - 32 mmol/L) 22 BUN (7 - 18 mg/dL) 72 Creatinine (0.6 - 1.3 mg/dL) 4.7 Est GFR ( Amer) (mL/min) 11.98 Est GFR (Non-Af Amer) (mL/min) 9.88 Glucose (70 - 110 mg/dL) 122 Plasma Calcium (8.5 - 10.1 mg/dL) 8.7 Plasma Magnesium (1.8 - 2.4 mg/dL) 1.5 Total Bilirubin (0.0 - 1.0 mg/dL) 0.4 AST (15 - 37 U/L) 12 ALT (12 - 78 U/L) 8 Alkaline Phosphatase (46 - 116 U/L) 90 Creatine Kinase (24 - 260 U/L) 39 Troponin (0.00 - 1.5 ng/mL) <0.05 B-Natriuretic Peptide (5 - 100 pg/ml) 138 Total Protein (6.4 - 8.2 g/dL) 5.9 Albumin (3.3 - 5.0 g/dL) 1.9 TSH 3rd Generation (0.30 - 3.74 uIU/mL) 3.424 Coagulation INR (0.8 - 1.2) 1.1 Hematology WBC (4.5 - 11.5 K/uL) 7.8 RBC (4.00 - 5.20 M/uL) 2.70 Hgb (12.0 - 16.0 gm/dL) 7.9 Hct (36.0 - 46.0 %) 24.3 MCV (80 - 100 fL) 90 MCH (26 - 34 pg) 29 RDW (11.6 - 14.8 %) 21.5 Gran % (53 - 90) 86.3 Lymph % (Auto) (25 - 40 %) 11.2 [place] % (Auto) (3 - 14 %) 2.5 Plt Count, EDTA (150 - 400 K/uL) 256 PUBS MCHC (31 - 37 g/dL) 32 Urines Urine Color YELLOW Urine Appearance CLEAR Urine pH (5.0 - 8.0) 5.0 Ur Specific [place] (1.010 - 1.030) 1.015 Urine Protein (NEGATIVE) 2+ Urine Ketones (NEGATIVE) NEGATIVE Urine Blood (NEGATIVE) NEGATIVE Urine Nitrite (NEGATIVE) NEGATIVE Urine Bilirubin (NEGATIVE) NEGATIVE Urine Urobilinogen (0.2 - 1.0 EU/dL) 0.2 Ur Leukocyte Esterase (NEGATIVE) TRACE Urine RBC (0 - 1 rbc/hpf) 0-1 Urine WBC (0 - 1 wbc/hpf) 5-10 Ur Epithelial Cells (0 - 5 EPI/hpf) 1-3 Urine Bacteria (NONE SEEN) FEW (1+) Urine Glucose (NEGATIVE) NEGATIVE Urine Comment CULTURE INDICATED Microbiology Date/Time Procedure - Status Source Growth 04/20 0940 Blood Culture - RECD BLOOD 04/20 0852 Blood Culture - COLB BLOOD 04/20 0805 Urine Culture - RECD URINE CC Imaging Chest X-Ray IMPRESSION: 1. Negative chest. Dictated by: NANCY MILES MD D: WILLIAMS;04/20/17 0900 Assessment and Plan Problem List 1. Hypoglycemia Plan -Patient presents with findings of hypoglycemia -Hold long-acting insulin -IV glucose infusion -Begin insulin signed scale when blood sugar stabilizes -Consistent carbohydrate diet -Monitor 2. Hypothermia Plan -Patient presents with findings of hyponatremia in the setting of hypoglycemia -Normalized blood sugar -External warming -Monitor 3. UTI (urinary tract infection) Plan -UTI with Enterobacter cloacae -Enterobacter resistant to Rocephin, sensitive to Levaquin Levaquin with dosage adjustment per pharmacy due to renal insufficiency -Monitor 4. Dehydration Plan -Patient shows findings of chronic kidney disease with prerenal azotemia -IV fluid therapy -Monitor 5. Renal failure, acute on chronic Plan -Patient with history of chronic kidney disease stage IV -Prerenal azotemia versus acute renal failure on top of chronic kidney disease -IV fluid therapy -Monitor 6. Diabetes Plan -Patient with history of type 2 diabetes mellitus with peripheral arterial disease -DC long-acting insulin secondary to hypoglycemia -Insulin sliding scale -Diabetic education -We'll discuss outpatient management with Dr. Heard secondary to recurrent hypoglycemic episode in snf facility. 7. Anemia Plan -Patient with findings of anemia -H&H 7.9/24.3 -Check iron profile, B12, folate -Monitor -Stool Hemoccult 8. Hypomagnesemia Status Acute Onset Date Unknown Plan -Patient with findings of hypomagnesemia -IV/oral supplementation -Monitor 9. COPD (chronic obstructive pulmonary disease) Plan -History of COPD -Rest for examination unremarkable. -Albuterol neb when necessary shortness of breath -Supplemental oxygen as necessary -Monitor Current status: Fair, unstable Anticipated discharge date: Anticipated discharge in 2-3 days Anticipated discharge placement: [facility] facility Patient care time: Time in chart review, patient interview, physical exam, CPOE, and care documentation: 70 mins Visit to patient today: 2 Complexity of care: High DVT prophylaxis: Lovenox E&M Codes Admission: Inpt-High/57506
--- NOTE | 2017-04-20 10:13 | Progress Note ---
Subjective General Admission History and Physical Examination Patient Name: Miriam Haas Admission Date: April 20, 2017 Primary Care Provider: Hossein Heard MD Attending Physician: Roman Emery MD Admitting Physician: Roman Emery M.D. Code Status: NO CODE Room: 306 Status: Inpatient, CCU SUBJECTIVE Historian: Patient and family Reliability: Fair Chief Complaint: Hypoglycemia, hypothermia, weakness, mental status changes History of Present Illness: The patient is a 66-year-old white female with a significant past medical history of type 2 diabetes mellitus-insulin requiring, hyperlipidemia, hypertension, chronic kidney disease stage IV, gastroesophageal reflux, depression, recurrent UTI, who presented to [facility] emergency room on the day of admission secondary to complaints of hypoglycemia hypothermia weakness with associated mental status changes. [facility] ER evaluation was consistent with UTI, hypothermia, hypoglycemia, and altered mental status. Secondary to the above, the patient was admitted by Roman Emery M.D. for further evaluation and treatment. The history of present illness began on the day of admission when the patient was noted to have hypoglycemia and [facility]. The patient is unable to give any history as she was noted to have altered mental status at time of admission associated with her hypothermia and hypo- glycemia. No other history is available at this time. [facility] ER evaluation showed the patient to have findings as noted above with hypoglycemia, hypothermia, UTI, and altered mental status. This is similar to recent hospitalization on . Secondary to the above the patient was admitted to the medical intensive care unit by Roman Emery M.D. for further evaluation and treatment. PAST MEDICAL HISTORY Illnesses: 1. Diabetes mellitus 2. Peripheral arterial disease 3. Hypertension 4. Chronic kidney disease stage IV 5. Hyperlipidemia Allergies: 1. Codeine Medications: Acetaminophen Oral. Amlodipine Besy-Benazepril HCl Oral 10mg, daily. Ascorbic Acid Oral (Tablet Chewable 500 mg) 1 tablet, daily. Atorvastatin Calcium Oral (Tablet 20 mg) 1 tablet, daily. Dulcolax Rectal (Suppository 10 mg) 1 suppository, daily as needed. Ergocalciferol dosage unknown Ferrous Sulfate Oral 325 mg, 3x a day. Folic Acid Oral (Tablet 1 mg) 1 tablet, daily. Hydralazine dosage unknown Lantus insulin dosage unknown Humalog insulin dosage unknown Labetalol HCl Oral (Tablet 100 mg) 1 tablet, 2x a day. Melatonin Oral (Tablet 3 mg) 1 tablet, daily. Milk of Magnesia Oral 1200mg/15ml, daily as needed. Pantoprazole Sodium Oral. Senna Laxative Oral (Tablet 8.6 mg) 1 tablet, daily. Venlafaxine HCl ER Oral 75mg, daily. Surgery: 1. Hip fracture-ORIF 2. Right AKA 3. Toe amputation left foot 4. Hysterectomy 5. Cholecystectomy Injuries: 1. No significant Hospitalizations: 1. For above mentioned surgery and medical problems FAMILY HISTORY Parents: 1. Father, , age unknown cause unknown, 2. Mother, , 91, metastatic carcinoma Siblings: 1. None Children: 1. The patient has 5 children without significant medical problems Other significant family history: None SOCIAL HISTORY 1. Marital Status: 2. Moravian: Evangelical-Christian 3. Education: High school 4. Employment History: Retired 5. Occupational health exposures: None HABITS 1. Tobacco: 44 pack years, stopped 2017 2. Drugs: None 3. Alcohol: None 4. Caffeine: None HEALTH SUPERVISION Item/Test 1. Unknown IMMUNIZATIONS: 1. Pneumococcal: Unknown 2. Influenza: Unknown 3. Tetanus: Unknown ADVANCED DIRECTIVES: 1. Living well: No 2. POLST: Yes 3. Code Status: NO CODE 4. Durable Power Graphic Technician Health care: Yes 5. Donor card: No REVIEW OF SYSTEMS Remarkable for those things stated in the history of present illness and past medical history. Seventeen point review of system completed with the following notable findings: History unobtainable secondary to patient's mental status Physical Exam General Appearance Cooperative, No acute distress, lethargic, Mild confusion. HEENT Atraumatic, PERRLA, EOMI, Moist mucous membranes Lungs Clear to auscultation, Normal air movement Neck Supple, No JVD Cardiovascular Regular rate and rhythm, Normal S1 and S2, Grade 2/6 systolic murmur, 2+ edema ankle (L) leg Abdomen Normal bowel sounds, Soft, No tenderness Extremities No cyanosis, No clubbing, Edema as above, Right AKA. Left toe amputation. Neurological Cranial nerves intact, No lateralizing signs, confused. Psych/Mental Status Mood normal, Confused LAB Results Laboratory Tests 04/20 04/20 04/20 04/20 0805 0740 0740 0740 Chemistry Plasma Sodium (136 - 145 mmol/L) 137 Plasma Potassium (3.5 - 5.1 mmol/L) 5.7 Plasma Chloride (98 - 107 mmol/L) 103 CO2 (Enzymatic) (21 - 32 mmol/L) 22 BUN (7 - 18 mg/dL) 72 Creatinine (0.6 - 1.3 mg/dL) 4.7 Est GFR ( Amer) (mL/min) 11.98 Est GFR (Non-Af Amer) (mL/min) 9.88 Glucose (70 - 110 mg/dL) 122 Plasma Calcium (8.5 - 10.1 mg/dL) 8.7 Plasma Magnesium (1.8 - 2.4 mg/dL) 1.5 Total Bilirubin (0.0 - 1.0 mg/dL) 0.4 AST (15 - 37 U/L) 12 ALT (12 - 78 U/L) 8 Alkaline Phosphatase (46 - 116 U/L) 90 Creatine Kinase (24 - 260 U/L) 39 Troponin (0.00 - 1.5 ng/mL) <0.05 B-Natriuretic Peptide (5 - 100 pg/ml) 138 Total Protein (6.4 - 8.2 g/dL) 5.9 Albumin (3.3 - 5.0 g/dL) 1.9 TSH 3rd Generation (0.30 - 3.74 uIU/mL) 3.424 Coagulation INR (0.8 - 1.2) 1.1 Hematology WBC (4.5 - 11.5 K/uL) 7.8 RBC (4.00 - 5.20 M/uL) 2.70 Hgb (12.0 - 16.0 gm/dL) 7.9 Hct (36.0 - 46.0 %) 24.3 MCV (80 - 100 fL) 90 MCH (26 - 34 pg) 29 RDW (11.6 - 14.8 %) 21.5 Gran % (53 - 90) 86.3 Lymph % (Auto) (25 - 40 %) 11.2 [place] % (Auto) (3 - 14 %) 2.5 Plt Count, EDTA (150 - 400 K/uL) 256 PUBS MCHC (31 - 37 g/dL) 32 Urines Urine Color YELLOW Urine Appearance CLEAR Urine pH (5.0 - 8.0) 5.0 Ur Specific [place] (1.010 - 1.030) 1.015 Urine Protein (NEGATIVE) 2+ Urine Ketones (NEGATIVE) NEGATIVE Urine Blood (NEGATIVE) NEGATIVE Urine Nitrite (NEGATIVE) NEGATIVE Urine Bilirubin (NEGATIVE) NEGATIVE Urine Urobilinogen (0.2 - 1.0 EU/dL) 0.2 Ur Leukocyte Esterase (NEGATIVE) TRACE Urine RBC (0 - 1 rbc/hpf) 0-1 Urine WBC (0 - 1 wbc/hpf) 5-10 Ur Epithelial Cells (0 - 5 EPI/hpf) 1-3 Urine Bacteria (NONE SEEN) FEW (1+) Urine Glucose (NEGATIVE) NEGATIVE Urine Comment CULTURE INDICATED Microbiology Date/Time Procedure - Status Source Growth 04/20 0940 Blood Culture - RECD BLOOD 04/20 0852 Blood Culture - COLB BLOOD 04/20 0805 Urine Culture - RECD URINE CC Imaging Chest X-Ray IMPRESSION: 1. Negative chest. Dictated by: NANCY MILES MD D: WILLIAMS;04/20/17 0900 Assessment and Plan Problem List 1. Hypoglycemia Plan -Patient presents with findings of hypoglycemia -Hold long-acting insulin -IV glucose infusion -Begin insulin signed scale when blood sugar stabilizes -Consistent carbohydrate diet -Monitor 2. Hypothermia Plan -Patient presents with findings of hyponatremia in the setting of hypoglycemia -Normalized blood sugar -External warming -Monitor 3. UTI (urinary tract infection) Plan -UTI with Enterobacter cloacae -Enterobacter resistant to Rocephin, sensitive to Levaquin Levaquin with dosage adjustment per pharmacy due to renal insufficiency -Monitor 4. Dehydration Plan -Patient shows findings of chronic kidney disease with prerenal azotemia -IV fluid therapy -Monitor 5. Renal failure, acute on chronic Plan -Patient with history of chronic kidney disease stage IV -Prerenal azotemia versus acute renal failure on top of chronic kidney disease -IV fluid therapy -Monitor 6. Diabetes Plan -Patient with history of type 2 diabetes mellitus with peripheral arterial disease -DC long-acting insulin secondary to hypoglycemia -Insulin sliding scale -Diabetic education -We'll discuss outpatient management with Dr. Heard secondary to recurrent hypoglycemic episode in prison facility. 7. Anemia Plan -Patient with findings of anemia -H&H 7.9/24.3 -Check iron profile, B12, folate -Monitor -Stool Hemoccult 8. Hypomagnesemia Status Acute Onset Date Unknown Plan -Patient with findings of hypomagnesemia -IV/oral supplementation -Monitor 9. COPD (chronic obstructive pulmonary disease) Plan -History of COPD -Rest for examination unremarkable. -Albuterol neb when necessary shortness of breath -Supplemental oxygen as necessary -Monitor Current status: Fair, unstable Anticipated discharge date: Anticipated discharge in 2-3 days Anticipated discharge placement: [facility] facility Patient care time: Time in chart review, patient interview, physical exam, CPOE, and care documentation: 70 mins Visit to patient today: 2 Complexity of care: High DVT prophylaxis: Lovenox E&M Codes Admission: Inpt-High/[id number]
[2017-04-20] MEDS ORDERED: [UNRECOGNIZED DRUG - OTHER] PO (10:51)
--- NOTE | 2017-04-20 12:15 | NUR ---
Patient admitted to room 306 from ER accompanied by RETAIL SALESPERSON. Patient moved from stretcher to bed via slider sheet. Patient complained of left hip pain with movement. No rx needed at this time. Right AKA. Steri strips to left hip intact no drainage noted. Denies nausea. IV LFA patent 200cc/hr. [place] patent. No other complaints at this time. Pleasant and cooperative with care. Will continue to monitor.
--- NOTE | 2017-04-20 18:00 | NUR ---
PT HAD ONLY A FEW BITES OF HER PUMPKIN PIE, OTHERWISE DID NOT EAT HER MEAL (THOUGH SHE LIKES HER COFFEE AND SODA). BROUGHT IN A PROTEIN DRINK FOR PT.
[2017-04-21] VITALS (16 sets, daily range): BP systolic 118–1484; BP diastolic 49–76
--- NOTE | 2017-04-21 07:28 | NUR ---
LATE ENTRY - ON ASSESSMENT AT 2019 PT WAS ALERT AND ORIENTED X3. NO COMPLAINTS OF PAIN. TOLERATED TURN TO LEFT SIDE. NO CHEST PAIN, NO HEART PALPITATIONS. TEMP WITHIN NORMAL LIMITS. TELE SHOWS 1ST DEGREE BLOCK. BKA TO RIGHT LEG, HEALING SURGICAL SITES TO LEFT LEG NOTED FROM PREVIOUS HIP SURGERY. MEPILEX IN PLACE TO BUTTOCKS - REDDENED BUT BLANCHABLE. IV INFUSING TO LFA UNREMARKABLE - INFUSING AT 125/HR. HOLLIDAY IN PLACE DRAINING YELLOW BUT CLOUDY URINE - STABILIZED TO LEFT LEG. THROUGH OUT THE NIGHT PT SLEPT WELL, TURNED EVERY COUPLE HOURS. MEDICATED X1 THOUGH OUT THE NIGHT FOR A PAIN AT A 4/10 TO LEFT FOOT WITH TYLENOL PO - EFFECTIVE COVERAGE. NO REQUESTS THIS AM. CALL LIGHT WITHIN REACH.
--- NOTE | 2017-04-21 07:56 | Progress Note ---
Subjective General Note Date: April 21, 2017 Admission Date: April 20, 2017 Hospital Day: 2 PCP: Hossein Heard M.D. Status: Inpatient, CCU Advanced Directive: NO CODE Room: 306 Admission History: The patient is a 66-year-old white female with a significant past medical history of type 2 diabetes mellitus-insulin requiring, hyperlipidemia, hypertension, chronic kidney disease stage IV, gastroesophageal reflux, depression, recurrent UTI, who presented to [facility] emergency room on the day of admission secondary to complaints of hypoglycemia hypothermia weakness with associated mental status changes. [facility] ER evaluation was consistent with UTI, hypothermia, hypoglycemia, and altered mental status. Secondary to the above, the patient was admitted by Roman Emery M.D. for further evaluation and treatment. For other history present illness, past medical history, family history, social history, review of systems, and admission physical examination please see the patient's history and physical examination and ER visit note in the patient's medical record. Subjective: The patient states she is doing well today. Mild pain. No other complaints. Mental status normal. Patient requests: None Medications and Allergies Medications Current Medications Sig/Jerrod Start time Last Medication Dose Route Stop Time Status Admin Magnesium Sulfate 2 GM NOW STA 04/21 0500 CAN IV 04/21 0501 Labetalol HCl 100 MG BID 04/20 2100 AC 04/20 PO 2205 Nystatin See Dose BID 04/20 2100 AC 04/20 Insts (1) TOP 2144 Pantoprazole Sodium 40 MG PPIBID 04/20 1700 AC 04/21 Sesquihydrate PO 0550 Senna 1 TAB DAILY 04/20 1612 AC 04/20 PO 1639 Venlafaxine HCl 75 MG DAILY 04/20 1612 AC 04/20 PO 1648 Folic Acid 1 MG DAILY 04/20 1611 AC 04/20 PO 1639 Furosemide 40 MG DAILY 04/20 1611 AC 04/20 PO 1639 Ferrous Sulfate 325 MG DAILY 04/20 1610 AC 04/20 PO 1639 Aripiprazole 5 MG DAILY 04/20 1604 AC 04/20 PO 1639 Atorvastatin Calcium 20 MG DAILY 04/20 1604 AC 04/20 PO 1639 Amlodipine Besylate 10 MG DAILY 04/20 1603 AC 04/20 PO 1639 Heparin Sodium 5,000 UNITS Q8HR 04/20 1400 AC 04/21 (Porcine) SC 0549 Magnesium Chloride 535 MG TID 04/20 1400 AC 04/21 PO 0549 Levofloxacin/Dextrose 100 ML Q48H 04/20 1300 AC 04/20 IV 1400 Dextrose/Sodium 1,000 ML ASDIRECTED 04/20 1030 AC 04/21 Chloride IV 0744 Magnesium Sulfate 2 GM NOW STA 04/20 1024 CAN IV 04/20 1025 Acetaminophen 650 MG Q4H PRN 04/20 1015 AC 04/20 PO 2225 Al Hydrox/Mg Hydrox/ 15 ML Q1H PRN 04/20 1015 AC Simethicone PO Albuterol Sulfate 2.5 MG RTQ3H PRN 04/20 1015 AC IN Atropine Sulfate 0.5 MG Q3MIN PRN 04/20 1015 AC IV Lidocaine HCl See Dose ONCE PRN 04/20 1015 AC Insts (2) IV Magnesium Hydroxide 10 ML DAILY PRN 04/20 1015 AC PO Nitroglycerin 0.4 MG Q5M PRN 04/20 1015 AC SL Ondansetron HCl 4 MG Q6H PRN 04/20 1015 AC IV Dose Instructions: (1)Nystatin: TO AFFECTED AREA (2)Lidocaine HCl: 1.5 MG/KG Allergies Coded Allergies: Codeine (Severe, HALLUCINATIONS 04/15/17) Reconcile Medications Scheduled Medications Acetaminophen (Tylenol 325 MG) 325 MG TAB 325 MG PO Q4H (Reported) Alum & Mag Hydrox-Simethicone (Krystal-Lanta) HAFSA 15 ML Q4H (Reported) Amlodipine Besylate 10 MG TAB 10 MG PO DAILY (Reported) Aripiprazole (Abilify 5 MG) 5 MG TAB 5 MG PO DAILY (Reported) Ascorbic Acid (Ascorbic Acid 500 MG) 500 MG TAB 500 MG PO DAILY (Reported) Atorvastatin Calcium (Atorvastatin Calcium 20 MG) 20 MG TAB 20 MG PO DAILY ( Reported) Bisacodyl (Dulcolax 10 MG Suppository) 10 MG SUP 10 MG WA DAILY (Reported) Ergocalciferol (Drisdol) 50,000 UNT CAP 1 CAP PO WEEKLY (Reported) Ferrous Sulfate (Ferrous Sulfate 325 MG) 325 MG TAB 325 MG PO DAILY (Reported ) Fluticasone Propionate (Nasal) (Fluticasone Propionate Nasal) 50 MCG SPR 1 SPR NA DAILY (Reported) Folic Acid (Folic Acid 1 MG) 1 MG TAB 1 MG PO DAILY (Reported) Furosemide (Furosemide 40 MG) 40 MG TAB 40 MG PO DAILY (Reported) Hydralazine HCl (Hydralazine HCl 25 MG) 25 MG TAB 50 MG PO TID (Reported) Labetalol HCl (Labetalol HCl 100 MG) 100 MG TAB 100 MG PO BID (Reported) Levofloxacin Hemihydrate (Levaquin 250 MG) 250 MG TAB 250 MG PO DAILY Magnesium Hydroxide (Milk Of Magnesia) 400 MG/5 ML HAFSA 15 ML PO DAILY ( Reported) Magnesium Hydroxide (Milk Of Magnesia Concentr) 2,400 MG HAFSA 15 ML PO DAILY Constipation (Reported) Melatonin 3 MG CAP 3 MG PO DAILY (Reported) Nystatin (Nystop Topical Powder) 100,000 MG POW 100,000 MG TOP BID Oxycodone HCl (Oxaydo) 5 MG TAB 1 TAB PO Q6H Pain 7-08/12 (Reported) Pantoprazole Sodium (Pantoprazole Sodium 40 MG) 40 MG TAB 40 MG PO BID ( Reported) Senna (Senna-Lax) 8.6 MG TAB 1 TAB PO DAILY (Reported) Venlafaxine HCl (Effexor) 25 MG TAB 75 MG PO DAILY (Reported) Scheduled PRN Medications Oxycodone HCl (Oxaydo) 5 MG TAB 0.5 TAB PO Q6H PRN FOR PAIN (Reported) Oxycodone HCl (Roxicodone 5 MG) 5 MG TAB 5 MG PO QID PRN FOR PAIN Miscellaneous Medications Insulin Glargine (Lantus Solostar Pen 100 Units/Ml) 100 UNITS/ML INJ (Reported) Insulin Lispro (Humalog) 100 MG/ML INJ (Reported) Discontinued Medications Ergocalciferol (Vitamin D2 400 Units) 400 UNIT TAB (Reported) Discontinued reason: Dose Change Gabapentin 100 MG CAP 100 MG PO BID (Reported) Discontinued reason: No Longer Taking Ipratropium-Albuterol 0.5/2.5 MG (Ipratropium [place]/Albuterol) 3 ML 3 ML IN RTQ6H Discontinued reason: No Longer Taking Pantoprazole Sodium (Pantoprazole Sodium 40 MG) 40 MG TAB 40 MG PO DAILY ( Reported) Discontinued reason: Dose Change Sulfamethoxazole W/Trimethopri (Smz-Tmp Ds) 1 TAB TAB 1 TAB PO 1400 Discontinued reason: No Longer Taking Physical Exam Vital Signs / I&Os Vital Signs Date Time Temp Pulse Resp B/P Pulse O2 O2 Flow FiO2 Ox Delivery Rate 04/21 0620 98.6 73 18 145/55 98 Room Air 04/21 0511 74 145/58 98 04/21 0400 73 16 147/56 99 04/21 0300 72 145/56 98 04/21 0217 98.8 75 15 140/56 99 Room Air 04/21 0100 73 135/52 99 04/21 0013 70 131/49 99 04/20 2300 98.4 04/20 2300 72 16 137/56 99 Nasal 2.0 Cannula 04/20 2205 76 04/20 2200 80 19 151/62 99 04/20 2155 98.4 75 16 149/66 98 Nasal 2.0 Cannula 04/20 2020 Nasal 2.0 Cannula 04/20 2005 77 14 136/51 99 Nasal 2.0 Cannula 04/20 2001 2.0 04/20 1903 79 04/20 1900 98.4 79 19 146/52 100 Nasal 2.0 Cannula 04/20 1833 98.8 77 15 100 Nasal 2.0 Cannula 04/20 1800 76 15 141/53 Nasal 2.0 Cannula 04/20 1700 77 19 154/55 100 Nasal 2.0 Cannula 04/20 1633 98.2 04/20 1600 77 15 148/59 100 Nasal 2.0 Cannula 04/20 1500 77 11 144/54 100 Nasal 2.0 Cannula 04/20 1444 98.1 04/20 1400 2.0 04/20 1400 80 16 153/47 100 Nasal 2.0 Cannula 04/20 1313 74 19 151/60 100 Nasal 2.0 Cannula 04/20 1208 97.9 75 22 151/63 100 Nasal 2.0 Cannula I&O 04/21 0000 04/20 1600 04/20 0800 Intake Total 1360 0 Output Total 800 290 Balance 560 -290 General Appearance Alert, Oriented X3, Cooperative, No acute distress Lungs Clear to auscultation, Normal air movement Cardiovascular Regular rate and rhythm, Normal S1 and S2 Abdomen Normal bowel sounds, Soft, No tenderness Extremities No cyanosis, No clubbing, trace pedal edema left foot Neurological Cranial nerves intact, No lateralizing signs Psych/Mental Status Mental status normal, Mood normal LAB Results Laboratory Tests 04/21 04/20 0405 0805 Chemistry Plasma Sodium (136 - 145 mmol/L) 133 Plasma Potassium (3.5 - 5.1 mmol/L) 5.3 Plasma Chloride (98 - 107 mmol/L) 104 CO2 (Enzymatic) (21 - 32 mmol/L) 19 BUN (7 - 18 mg/dL) 68 Creatinine (0.6 - 1.3 mg/dL) 4.7 Est GFR ( Amer) (mL/min) 11.94 Est GFR (Non-Af Amer) (mL/min) 9.85 Glucose (70 - 110 mg/dL) 100 Plasma Calcium (8.5 - 10.1 mg/dL) 8.0 Plasma Magnesium (1.8 - 2.4 mg/dL) 1.3 Hematology WBC (4.5 - 11.5 K/uL) 6.3 RBC (4.00 - 5.20 M/uL) 2.49 Hgb (12.0 - 16.0 gm/dL) 7.2 Hct (36.0 - 46.0 %) 22.4 MCV (80 - 100 fL) 90 MCH (26 - 34 pg) 29 RDW (11.6 - 14.8 %) 21.3 Neut % (Auto) (50 - 75 %) 74 Lymph % (Auto) (25 - 40 %) 23 Swain % (Auto) (3 - 14 %) 0 Eos % (Auto) (0 - 4 %) 3 Baso % (Auto) (0 - 2 %) 0 Band Neutrophils % (0 - 8 %) 0 Metamyelocytes % (0 - 1 %) 0 Myelocytes (0 - 1 %) 0 Other Cell Type 0 Plt Count, EDTA (150 - 400 K/uL) 200 RBC Morphology 2+ HYPOCHROMIA PUBS MCHC (31 - 37 g/dL) 32 Urines Urine Color YELLOW Urine Appearance CLEAR Urine pH (5.0 - 8.0) 5.0 Ur Specific Wallace (1.010 - 1.030) 1.015 Urine Protein (NEGATIVE) 2+ Urine Ketones (NEGATIVE) NEGATIVE Urine Blood (NEGATIVE) NEGATIVE Urine Nitrite (NEGATIVE) NEGATIVE Urine Bilirubin (NEGATIVE) NEGATIVE Urine Urobilinogen (0.2 - 1.0 EU/dL) 0.2 Ur Leukocyte Esterase (NEGATIVE) TRACE Urine RBC (0 - 1 rbc/hpf) 0-1 Urine WBC (0 - 1 wbc/hpf) 5-10 Ur Epithelial Cells (0 - 5 EPI/hpf) 1-3 Urine Bacteria (NONE SEEN) FEW (1+) Urine Glucose (NEGATIVE) NEGATIVE Urine Comment CULTURE INDICATED Microbiology Date/Time Procedure - Status Source Growth 04/20 1610 MRSA Screen - RECD NASAL 04/20 1553 Blood Culture - RECD BLOOD 04/20 0940 Blood Culture - RECD BLOOD 04/20 0805 Urine Culture - RECD URINE CC Assessment and Plan Problem List 1. Hypoglycemia Plan -Resolved -Monitor -Patient taking well orally. DC IV fluids with glucose. 2. Hypothermia Plan -Resolved -Patient's temperature normal -Monitor 3. Diabetes Plan -Patient with long-standing history of diabetes mellitus. -Patient with recurrent hypoglycemia at assisted facility -DC long-acting insulin -Continue insulin sliding scale only at this time. -Monitor closely 4. UTI (urinary tract infection) Plan -Stable -Afebrile -Continue Levaquin -Switch to oral Levaquin in a.m. if stable 5. Renal failure, acute on chronic Plan -Patient with findings of acute on chronic renal insufficiency -BUN/creatinine slightly improved with hydration -Monitor 6. Hypomagnesemia Status Acute Onset Date Unknown Plan -Patient with persistent hypomagnesemia -IV/oral supplementation -Monitor 7. Hyperkalemia Status Acute Onset Date Unknown Plan -Patient with persistent mild elevation of potassium -Potassium 5.3 today -Monitor 8. Dehydration Plan -Patient with findings of dehydration/prerenal azotemia -Slightly improved today with IV hydration -Monitor 9. Fungal dermatitis Plan -Patient with findings of fungal dermatitis -Nystatin cream when necessary 10. COPD (chronic obstructive pulmonary disease) Plan -Stable -Continue inhalation bronchodilators as necessary -No oxygen requirement -Pulse oximetry 97% room air 11. Anemia Plan -Patient with moderate anemia -Serum iron studies, B12, folate within normal limits -Check erythropoietin level -Monitor Current status: Fair, improved Anticipated discharge date: Anticipated discharge 1-2 days Anticipated discharge placement: shelter facility Patient care time: Time in chart review, patient interview, physical exam, CPOE, and care documentation: 35 mins Visit to patient today: 1 Complexity of care: High DVT prophylaxis: Lovenox E&M Codes Rounding: Inpt-High/[id number]
--- NOTE | 2017-04-21 08:30 | NUR ---
Patient in bed resting at this time. Patient tolerating good PO intake. BS 94 this AM. Patient denies nausea. States left leg pain 3/ no rx needed at this time. Tele NSR with 1st degree heart block HR 78. Patient encouraged to cough and deep breath frequently. No sob noted. Room air sats 97%. Temp 97.6. Patient able to answer questions appropriately and able to make needs known. Right AKA. Left hip healing surgical incision noted from hip surgery. Steri strips intact on left hip no drainage noted. Redness noted on coccyx. Mepilex to coccyx. Wound care nurse will see patient today. Patient encouraged to be up in chair. Patient is a total lift. Patient repositioned frequently to help prevent skin breakdown. Cotter patent. No other complaints at this time. Pleasant and cooperative with care. Will continue to monitor.
--- NOTE | 2017-04-21 09:48 | NUR ---
Patient up to chair via total lift in room. Patient tolerated it well. Patient inc of stool and was cleaned up and changed before getting up out of bed. Patient encouraged to be up sitting in chair for a little while. No complaints at this time. Pleasant and cooperative with care. Will continue to monitor.
--- NOTE | 2017-04-21 14:34 | NUR ---
In to see patient with report of erythematous coccyx. Upon assessment with assistance from patients RN, there is blanchable erythema to the coccyx, with dry patches, but no open areas seen. Moisturizer applied to dry patches and optifoam sacral dressing applied, Pt on WAFFLE mattress and being repositioned both with assistance and on her own. Complaining of left hip/leg pain, RN receiving order for po pain med now. Will continue to monitor.
--- NOTE | 2017-04-21 14:41 | NUR ---
Patient complained of left leg pain. Percocet 1 tab given for pain management. Denies nausea. Patient tolerating Po intake. No other complaints at this time. Pleasant and cooperative with care. Will continue to monitor.
--- NOTE | 2017-04-21 15:04 | NUR ---
NUTRITION ASSESSMENT: S: Pt admitted with dx/o UTI, hypoglycemia, hypothermia, renal failure (acute on chronic). PMH includes: diabetes, peripheral artery disease, HTN, stage IV kidney disease, hyperlipdemia, COPD, anemia, Right AKA & toe amputation on left foot. Pt needs a lot of cueing and encouragement during meals. She does accept nutrition supplement (BOOST) as a meal replacment. Wts: 86.8 kg Ht: 63" IBW: 55-62 kg %IBW: ~138% ABW: ~70 kg Est Kcals: 3782-5158 kcals per day Est Pro: ~70-80 g per day Est Fluids: ~2.0 L per day Meds Incl: amlodipine, abilify, lipior, Fe+, folic acid, lasix, labetalol HCL, levofloxacin, magnesium, nystatin, protonix, senna, venlafaxine HCL, see eMar for complete list/details. Labs Incl: (04/21) glucose 100, BUN 68, creat 4.7, Na+ 133, K+ 5.3, mag 1.3, Ca+ 8.0, HCT 22.4, HGB 7.2, MCV 90, MCH 29 (04/20) albumin 1.9, total pro 5.9, A1c: 4.4 (est average) Skin: left hip surgical inc,
--- NOTE | 2017-04-21 15:41 | NUR ---
Patient states left leg pain is better. Percocet effective. Will continue to monitor.
--- NOTE | 2017-04-21 19:11 | NUR ---
Patient in bed resting at this time. Patient total lift. Patient sat up in chair for awhile tonight. Poor appetite. Patient given boost glucose control. IV LFA saline locked. Denies pain at this time. Cotter patent. No complaints at this time. Pleasant and cooperative with care. Will continue to monitor.
[2017-04-22] VITALS (7 sets, daily range): BP systolic 88–168; BP diastolic 34–66
--- NOTE | 2017-04-22 01:29 | NUR ---
patient restless in bed and groaning, checked on patient, patient stated she wanted to get out of bed and have her linens and bed clothes straightened and get back into bed, told her we would use the lift to get her up straighten her linens and get her back in bed, patient refused stating the lift was very uncomfortable, asked patient how she got up at home and she stated a slider board from one seat to her wheelchair, told her we could roll her side to side and straighten her linens, she refused saying that would be too uncomfortable, offered her pain medication, gave 1 tab percocet, patient currently sleeping, will continue to monitor
--- NOTE | 2017-04-22 06:41 | Progress Note ---
Subjective General Note Date: April 22, 2017 Admission Date: April 20, 2017 Hospital Day: 3 PCP: Hossein Heard M.D. Status: Inpatient, CCU Advanced Directive: NO CODE Room: 306 Admission History: The patient is a 66-year-old white female with a past medical history of type 2 diabetes mellitus-insulin requiring, hyperlipidemia, hypertension, chronic kidney disease stage IV, gastroesophageal reflux, depression, recurrent UTI, who presented to [facility] emergency room on the day of admission secondary to complaints of hypoglycemia hypothermia weakness with associated mental status changes. Patient was seen CVAT D were her assessment was consistent with UTI, hypothermia , hypoglycemia and altered mental status changes. Patient was subsequently admitted by hospitalist services. Patient's diabetic management was altered for avoidance of hypoglycemic events. For other history present illness, past medical history, family history, social history, review of systems, and admission physical examination please see the patient's history and physical examination and ER visit note in the patient's medical record. Subjective: Patient is seen today at bedside. No acute overnight changes. Patient's daughter was also present in the room. She reports that she's feeling better. She is reporting of a low temp. Constitutional Malaise. Denies: Chills. Respiratory Cough. Denies: Pleuritic Pain, Sputum. Gastrointestinal Denies: Abdominal Pain. Skin Denies: Lesions. Physical Exam Vital Signs / I&Os Vital Signs Date Time Temp Pulse Resp B/P Pulse O2 O2 Flow FiO2 Ox Delivery Rate 04/22 0210 98.2 73 19 131/44 98 Room Air 0.0 04/21 2139 98.2 78 19 143/62 99 Room Air 04/21 2133 78 04/21 2130 Room Air 04/21 1439 73 20 118/76 97 04/21 1200 71 17 132/63 97 Room Air 0.0 04/21 1100 73 13 139/59 98 Room Air 0.0 04/21 1030 97.3 75 14 143/63 92 Room Air 0.0 04/21 0916 84 04/21 0900 82 18 139/59 96 Room Air 0.0 04/21 0800 75 19 146/57 97 Room Air 0.0 04/21 0745 Room Air 04/21 0700 74 16 1484/55 97 Room Air 0.0 I&O 04/21 0800 04/21 1600 04/22 0000 Intake Total 2091 330 1685 Output Total 3166 293 6225 Balance 1091 -559 335 General Appearance Cooperative, mildly confused and reviewed daughter is present. HEENT EOMI Lungs Normal air movement Cardiovascular Normal S1 and S2 Abdomen Soft, No tenderness Extremities No edema, No tenderness Skin No Rashes Psych/Mental Status Confused Assessment and Plan Problem List 1. Hypoglycemia Plan Hypoglycemia events have resolved. To continue with the IV maintenance fluids. Discontinued the long-acting insulin. Patient is on a low dose sliding scale. Patient continues to take oral well. 2. Hypothermia Plan Patient with normal temperatures overnight. 3. Diabetes Plan Patient with a history of diabetes which is long-standing. Overall patient is had to hypoglycemic hypothermic events over the past month. Patient has been admitted to this hospital on 2 occasions. Discuss the matter with the [facility] medical authorization specialist. Patient has been on the Lantus at a higher level than required Plan to discontinue Lantus altogether. Patient started on low-dose sliding scale. Sugars will be monitored closely. Patient will stay in hospital until stable. 4. UTI (urinary tract infection) Plan Continue with the Levaquin. Plan to start oral dosages in the a.m. Patient's been afebrile and stable the past 2-3 days. 5. Renal failure, acute on chronic Plan Acute on chronic renal failure. Attempt to optimize sugar metabolism and improve on hydration. Patient has a fine dehydration and fluid overload. The potassiums of 5.3 Creatinine in the 4 region. 6. Hypomagnesemia Status Acute Onset Date Unknown Plan Recheck magnesium and replace as needed. 7. Hyperkalemia Status Acute Onset Date Unknown Plan Potassium of 5.3. Monitor and watch recheck a.m. labs. 8. Dehydration Plan Patient with acute on chronic renal failure. Optimize fluids. 9. Fungal dermatitis Plan Fungal dermatitis. Continue the nystatin as needed 10. COPD (chronic obstructive pulmonary disease) Plan COPD has been stable. Continue with the bronchodilators No supplemental O2 needed Maintain O2 sats above 92%. x 11. Anemia Plan Iron stores are low Started on 325 ferrous sulfate twice a day Current status: improved Anticipated discharge date: Anticipated discharge 1 to 2 days Anticipated discharge placement: [facility] facility Patient care time: Time in chart review, patient interview, physical exam, CPOE, and care documentation: 35 mins Visit to patient today: 1 Complexity of care: High DVT prophylaxis: Loveno E&M Codes Rounding: Inpt-High/[id number]
--- NOTE | 2017-04-22 06:41 | Progress Note ---
Subjective General Note Date: April 22, 2017 Admission Date: April 20, 2017 Hospital Day: 3 PCP: Hossein Heard M.D. Status: Inpatient, CCU Advanced Directive: NO CODE Room: 306 Admission History: The patient is a 66-year-old white female with a past medical history of type 2 diabetes mellitus-insulin requiring, hyperlipidemia, hypertension, chronic kidney disease stage IV, gastroesophageal reflux, depression, recurrent UTI, who presented to [facility] emergency room on the day of admission secondary to complaints of hypoglycemia hypothermia weakness with associated mental status changes. Patient was seen CVAT D were her assessment was consistent with UTI, hypothermia , hypoglycemia and altered mental status changes. Patient was subsequently admitted by hospitalist services. Patient's diabetic management was altered for avoidance of hypoglycemic events. For other history present illness, past medical history, family history, social history, review of systems, and admission physical examination please see the patient's history and physical examination and ER visit note in the patient's medical record. Subjective: Patient is seen today at bedside. No acute overnight changes. Patient's daughter was also present in the room. She reports that she's feeling better. She is reporting of a low temp. Constitutional Malaise. Denies: Chills. Respiratory Cough. Denies: Pleuritic Pain, Sputum. Gastrointestinal Denies: Abdominal Pain. Skin Denies: Lesions. Physical Exam Vital Signs / I&Os Vital Signs Date Time Temp Pulse Resp B/P Pulse O2 O2 Flow FiO2 Ox Delivery Rate 04/22 0210 98.2 73 19 131/44 98 Room Air 0.0 04/21 2139 98.2 78 19 143/62 99 Room Air 04/21 2133 78 04/21 2130 Room Air 04/21 1439 73 20 118/76 97 04/21 1200 71 17 132/63 97 Room Air 0.0 04/21 1100 73 13 139/59 98 Room Air 0.0 04/21 1030 97.3 75 14 143/63 92 Room Air 0.0 04/21 0916 84 04/21 0900 82 18 139/59 96 Room Air 0.0 04/21 0800 75 19 146/57 97 Room Air 0.0 04/21 0745 Room Air 04/21 0700 74 16 1484/55 97 Room Air 0.0 I&O 04/21 0800 04/21 1600 04/22 0000 Intake Total 2091 330 1685 Output Total 5376 874 9735 Balance 1091 -559 335 General Appearance Cooperative, mildly confused and reviewed daughter is present. HEENT EOMI Lungs Normal air movement Cardiovascular Normal S1 and S2 Abdomen Soft, No tenderness Extremities No edema, No tenderness Skin No Rashes Psych/Mental Status Confused Assessment and Plan Problem List 1. Hypoglycemia Plan Hypoglycemia events have resolved. To continue with the IV maintenance fluids. Discontinued the long-acting insulin. Patient is on a low dose sliding scale. Patient continues to take oral well. 2. Hypothermia Plan Patient with normal temperatures overnight. 3. Diabetes Plan Patient with a history of diabetes which is long-standing. Overall patient is had to hypoglycemic hypothermic events over the past month. Patient has been admitted to this hospital on 2 occasions. Discuss the matter with the [facility] biomedical manager. Patient has been on the Lantus at a higher level than required Plan to discontinue Lantus altogether. Patient started on low-dose sliding scale. Sugars will be monitored closely. Patient will stay in hospital until stable. 4. UTI (urinary tract infection) Plan Continue with the Levaquin. Plan to start oral dosages in the a.m. Patient's been afebrile and stable the past 2-3 days. 5. Renal failure, acute on chronic Plan Acute on chronic renal failure. Attempt to optimize sugar metabolism and improve on hydration. Patient has a fine dehydration and fluid overload. The potassiums of 5.3 Creatinine in the 4 region. 6. Hypomagnesemia Status Acute Onset Date Unknown Plan Recheck magnesium and replace as needed. 7. Hyperkalemia Status Acute Onset Date Unknown Plan Potassium of 5.3. Monitor and watch recheck a.m. labs. 8. Dehydration Plan Patient with acute on chronic renal failure. Optimize fluids. 9. Fungal dermatitis Plan Fungal dermatitis. Continue the nystatin as needed 10. COPD (chronic obstructive pulmonary disease) Plan COPD has been stable. Continue with the bronchodilators No supplemental O2 needed Maintain O2 sats above 92%. x 11. Anemia Plan Iron stores are low Started on 325 ferrous sulfate twice a day Current status: improved Anticipated discharge date: Anticipated discharge 1 to 2 days Anticipated discharge placement: shelter facility Patient care time: Time in chart review, patient interview, physical exam, CPOE, and care documentation: 35 mins Visit to patient today: 1 Complexity of care: High DVT prophylaxis: Loveno E&M Codes Rounding: Inpt-High/[id number]
--- NOTE | 2017-04-22 08:00 | NUR ---
Patient complained of pain. Percocet 1 tab given for pain management. Will continue to monitor.
--- NOTE | 2017-04-22 09:00 | NUR ---
Patient states pain is better. Percocet effective. Will continue to monitor.
--- NOTE | 2017-04-22 09:00 | NUR ---
Patient up in chair for breakfast. Patient tolerating good PO intake. Fair appetite. BS 85 this AM. Patient denies nausea. States left leg pain 01/10 no rx needed at this time. Tele NSR with 1st degree heart block HR 74. Patient encouraged to cough and deep breath frequently. No sob noted. Room air sats 96%. Patient up via total lift 2 person assistance. Patient able to answer simple questions appropriately and able to make needs known. Right AKA. Left hip healing surgical incision noted from hip surgery. Steri strips intact on left hip no drainage noted. Redness noted on coccyx. Mepilex to coccyx. Patient encouraged to be up in chair. Patient is a total lift. Patient repositioned frequently to help prevent skin breakdown. Cotter patent. No other complaints at this time. Pleasant and cooperative with care. Will continue to monitor.
--- NOTE | 2017-04-22 11:34 | NUR ---
NUTRITION FOLLOW UP NOTE: Pt continues on consistant carb diet and ate ~50% of breakfast this am. Pt takes boost if po poor after meals. Rev'd glucose labs ~85-162, reveiwing insulin regimen and pt will likely stay another day. Renal labs continue to appear to be elevated, slight downward trend noted. Hesitant to add extra protein to meals at this time. Rec continue to boost, disregard recs for mighty shakes q meal until her renal labs continue to improve. RD to follow up prn/protocol.
--- NOTE | 2017-04-22 18:15 | NUR ---
Patient had a good day. Patient tolerating PO intake. Denies pain and nausea. Patient slightly forgetful and slightly confused at times. Will answer questions appropriately but does say off the wall comments. Asking to call son. No complaints at this time. Will continue to monitor.
--- NOTE | 2017-04-22 21:44 | NUR ---
PT RESTING IN BED. ALERT AND ORIENTED X3. NO COMPLAINTS OF PAIN. TURNED TO LEFT SIDE - TOLERATED WELL. MEPILEX IN PLACE TO COCYX - SKIN UNDERENEATH REDDENED BUT BLANCHABLE, BARRIER CREAM AND NYSTATIN CREAM APPLIED. HOLLIDAY CARE PROVIDED, IN PLACE AND STABILZED TO LEG. WAFFLE MATTRESS. NO SCDS - HEPARIN SC GIVEN. ROOM AIR SATS AT 98%. TEMP AT 97.8. BLOOD GLUCOSE AT 105 - NO COVERAGE INDICATED, PT ATE 100% OF HS SNACK. TELE SHOWS SINUS - HEART RATE AT 72. CALL LIGHT WITHIN REACH. NO FURTHRE REQUESTS AT THIS TIME.
[2017-04-23] VITALS (13 sets, daily range): BP systolic 141–164; BP diastolic 55–83
--- NOTE | 2017-04-23 06:34 | Progress Note ---
Subjective General Note Date: April 23, 2017 Admission Date: April 20, 2017 Hospital Day: 4 PCP: Hossein Heard M.D. Status: Inpatient, Acute Care in patient. Advanced Directive: NO CODE Room: 306 Admission History: The patient is a 66-year-old white female with a past medical history of type 2 diabetes mellitus-insulin requiring, hyperlipidemia, hypertension, chronic kidney disease stage IV, gastroesophageal reflux, depression, recurrent UTI, who presented to [facility] ED on the day of admission, secondary to complaints of hypoglycemia, hypothermia weakness with associated mental status changes. During her initial workup the ED was found that she was with a UTI. She was notably hypoglycemic and hypothermic. Patient had altered mental status changes at the time of her initial admission. Patient was subsequently admitted by hospitalist services. Patient's diabetic management was altered for avoidance of hypoglycemic events. She was started on IV antibiotic Levaquin. The long- acting Lantus was discontinued. Patient was pretty low-dose sliding scale insulin. Other home medications were continued. Discussed the care and dynamics of care with spanish medical interpreter at the [facility]. Patient's anemia was assessed. Was found the patient's iron deficient anemic. With the change in her following status along with mildly poor nutrition support was found the patient was having a drop in her hemoglobin. Patient was seen with a hemoglobin of 7 on day 4 of her hospital stay. Patient was given 2 units of cross matched PRBCs. It was also determined that patient had yeast infection involving the skin. Patient also grew out yeast on her urine sample. Patient is given 2 doses of fluconazole 150 mg daily. Blood pressure was controlled For other history present illness, past medical history, family history, social history, review of systems, and admission physical examination please see the patient's history and physical examination and ER visit note in the patient's medical record. Subjective: Patient reports that she is just not feeling quite as well today. Patient complains of lower abdominal pain. Patient states that it feels that she needs to defecate. Patient reports that she is having she has been passed. Patient is anxious to go back to [employer] [facility]. Patient is not expected to do as much activity [employer] therefore it's easier for her. Constitutional Denies: Chills, Sweats. Eyes Denies: Other. Respiratory Denies: Cough, SOB w/exertion. Cardiovascular Denies: Palpitations. Physical Exam Vital Signs / I&Os Vital Signs Date Time Temp Pulse Resp B/P Pulse O2 O2 Flow FiO2 Ox Delivery Rate 04/23 1244 98.2 66 17 149/77 97 04/23 1217 97.5 67 18 148/63 97 04/23 1202 98.8 67 20 146/63 97 04/23 1156 98.8 66 19 150/59 97 Room Air 04/23 1057 98.1 70 16 158/66 97 Room Air 04/23 0935 72 04/23 0730 Room Air 04/23 0623 98.1 71 16 157/62 97 Room Air 0.0 04/23 0200 98.4 67 16 160/61 100 Room Air 0.0 04/22 2135 97.9 73 21 158/61 98 Room Air 04/22 2133 71 04/22 2033 0.0 04/22 1827 97.5 66 19 152/64 95 04/22 1528 88/34 04/22 1412 97.2 65 18 123/66 96 Room Air 0.0 I&O 04/22 0800 04/22 1600 04/23 0000 Intake Total 3405 430 450 Output Total 850 825 850 Balance 2555 -395 -400 General Appearance Cooperative, Mild distress, irritable HEENT EOMI Lungs Normal air movement Neck No JVD Abdomen mildly distended, no rebound, soft Vital signs appreciated Tenderness in the lower abdomin. Extremities Normal pulses Skin No Breakdown Psych/Mental Status Mood normal LAB Results Laboratory Tests 04/23 0540 Chemistry Plasma Sodium (136 - 145 mmol/L) 137 Plasma Potassium (3.5 - 5.1 mmol/L) 5.5 Plasma Chloride (98 - 107 mmol/L) 106 CO2 (Enzymatic) (21 - 32 mmol/L) 19 BUN (7 - 18 mg/dL) 63 Creatinine (0.6 - 1.3 mg/dL) 4.6 Est GFR ( Amer) (mL/min) 12.24 Est GFR (Non-Af Amer) (mL/min) 10.10 Glucose (70 - 110 mg/dL) 101 Plasma Calcium (8.5 - 10.1 mg/dL) 8.4 Plasma Magnesium (1.8 - 2.4 mg/dL) 1.8 Total Bilirubin (0.0 - 1.0 mg/dL) 0.3 AST (15 - 37 U/L) 13 ALT (12 - 78 U/L) 7 Alkaline Phosphatase (46 - 116 U/L) 96 Total Protein (6.4 - 8.2 g/dL) 5.0 Albumin (3.3 - 5.0 g/dL) 2.0 Hematology WBC (4.5 - 11.5 K/uL) 5.3 RBC (4.00 - 5.20 M/uL) 2.37 Hgb (12.0 - 16.0 gm/dL) 7.0 Hct (36.0 - 46.0 %) 21.5 MCV (80 - 100 fL) 91 MCH (26 - 34 pg) 30 RDW (11.6 - 14.8 %) 20.6 Neut % (Auto) (50 - 75 %) 79.5 Lymph % (Auto) (25 - 40 %) 9.2 [place] % (Auto) (3 - 14 %) 7.9 Eos % (Auto) (0 - 4 %) 3.1 Baso % (Auto) (0 - 2 %) 0.3 Plt Count, EDTA (150 - 400 K/uL) 216 RBC Morphology 1+ ANISOCYTOSIS PUBS MCHC (31 - 37 g/dL) 33 Assessment and Plan Problem List 1. Diabetes Plan Long-term diabetic. She's had 2 different admissions her hepatic complications in the past month. Patient has been seen with hypoglycemic events. We'll stop the Lantus this time. Continue with her short acting low-dose sliding scale. She has Actos at home this can be continued. Monitor weight and also monitor ability to ambulate and move. 2. Hypoglycemia Plan Hypoglycemic event has resolved. Continue with the insulin sliding scale on a low-dose measure. 3. Hypothermia Plan Resolved hypothermia Continue to monitor temps and regulate status appropriately 4. Renal failure, acute on chronic Plan Careful monitoring of renal status. Importantly avoid any form of dehydration. Improve on diabetic management Last potassium was 5.3 continue with the regular checks both inpatient and outpatient Creatinines 4.0 Monitor renal function. 5. Hyperkalemia Status Acute Onset Date Unknown Plan Elevated potassium to 5.3. Monitored from day-to-day. 6. Hypomagnesemia Status Acute Onset Date Unknown Plan Maintain magnesium within the normal range. Replacement. Patient's magnesium levels are normal. 7. Dehydration Plan Recently seen as dehydrated Maintain appropriate fluid balances. 8. COPD (chronic obstructive pulmonary disease) Plan Monitor airway COPD has been stable. Continue with the bronchodilators Maintain O2 sats above 92%. 9. Anemia Plan Hemoglobin and hematocrit with downward trend since admission. Cross and match for transfusion. Give 2 units today. Monitor overnight. Continue the iron supplementation. Repeat labs tomorrow. Consider guaiac stool. Hold the discharge for one day with expected discharge by tomorrow. 10. UTI (urinary tract infection) Plan Initial urine showing signs of bacterial infection. His also signs of a yeast infection. Patient was given fluconazole 150 mg 2 and 6 consecutive days Current status: Guarded Anticipated discharge date: 1-2 days Anticipated discharge placement: Term care facility Patient care time: Time spent in chart review, patient interview, physical exam, CPOE, and care documentation: 35 minutes Visit to patient today: 2 Complexity of care: moderate E&M Codes Rounding: Inpt-High/[id number]
--- NOTE | 2017-04-23 07:02 | NUR ---
MG STUARTD ORDERED. AWARE OF H/H AT 21.5/7.0 - NEW ORDERS RECIEVED FOR TYPE/CROSS AND TRANSFUSE 2 UNITS PRBCS WHEN AVAILABLE. NO OTHERS ORDERS RECIEVED AT THIS TIME.
--- NOTE | 2017-04-23 08:45 | NUR ---
Patient up in chair for breakfast. Patient tolerating good PO intake. Fair appetite. BS 171 this AM 2 units sliding scale given. Patient denies nausea. States left leg pain 3/10 no rx needed at this time. Tele NSR with 1st degree heart block HR 68. Patient encouraged to cough and deep breath frequently. No sob noted. Room air sats 97%. Patient up via total lift 2 person assistance. Patient able to answer simple questions appropriately and able to make needs known. Right AKA. Left hip healing surgical incision noted from hip surgery. Steri strips intact on left hip no drainage noted. Redness noted on coccyx. Mepilex to coccyx. Patient encouraged to be up in chair. Patient repositioned frequently to help prevent skin breakdown. Vahe d/c's this AM by NOC RN. No other complaints at this time. Pleasant and cooperative with care. Will continue to monitor.
--- NOTE | 2017-04-23 09:38 | NUR ---
Patient back to bed from sitting up in chair via total lift. Patient complained of left leg pain. Percocet 1 tab given PO for pain management. No other complaints at this time. Pleasant and cooperative with care. Will continue to monitor.
--- NOTE | 2017-04-23 09:47 | NUR ---
In to see patient, to check sacrum,coccyx with history of blanchable erythema. Upon removal of sacrum foam, there is still blanchable erythema, quite red, with some red spots, pt receiving treatment in groin for yeast, recommend Nystatin be applied to this area as well. Cream applied, foam placed back over top. Repport given to Dr. Cosme, Pt also going to receive Fluconazole tablets per physician. Will continue to monitor.
--- NOTE | 2017-04-23 10:38 | NUR ---
Patient states pain is better. Percocet effective. Will continue to monitor.
--- NOTE | 2017-04-23 12:02 | NUR ---
1st unit PRBC started. Patient forgetful and asking off line wall questions and comments. "What are those girls doing out there"? Patient knows she is in the hospital and does answer simple questions appropriately. Will continue to monitor.
--- NOTE | 2017-04-23 14:00 | NUR ---
Patient refuses waffle mattress. MD aware. Will reposition patient frequently. Mepilex on coccyx. Will continue to monitor.
--- NOTE | 2017-04-23 14:35 | NUR ---
1st unit PRBC completed. Patient tolerating it well. Patient tolerating PO intake. Patient resting with eyes closed but grabbing at things in the air. Patient denies pain. Will continue to monitor.
--- NOTE | 2017-04-23 15:13 | NUR ---
2nd unit PRBC started. Will continue to monitor.
--- NOTE | 2017-04-23 16:00 | NUR ---
MD at bedside to check left hip incision. No new orders obtained. Steri strips intact. Will keep steri strips on per MD. Will watch for signs of infection. No drainage noted. Will continue to monitor.
--- NOTE | 2017-04-23 16:27 | NUR ---
Patient in bed. Confused and pulling on lines. Pulled IV out. 2nd unit PRBC stopped. Will place a new IV. Patient forgetful and needs to be re-oriented frequently at this time. States "I want to go home". MD aware. Will continue to monitor.
--- NOTE | 2017-04-23 17:29 | NUR ---
New IV placed. Patient tolerated it well. 2nd unit PRBC started back up. Will continue to monitor.
--- NOTE | 2017-04-23 18:43 | NUR ---
2nd unit PRBC completed. Will continue to monitor.
--- NOTE | 2017-04-23 19:43 | NUR ---
PT RESTING IN BED. TURNED TO RIGHT SIDE. INCONTINANT OF URINE ON PAD. NEW MEPILEX PLACED TO COCYX WITH DAY RN. COCYX REMAINS BLANCHABLE BUT RED. PT IS ALERT AND ORIENTED X3. NO COMPLAINTS OF PAIN. ROOM AIR - NO SOB. NO TELE. NO CHEST PAIN, NO HEART PLAPITATIONS, NO NAUSEA. PT REFUSES WAFFLE MATTRESS - PT WILL BE AN EVERY 2 HOUR TURN. IV TO LEFT HAND - UNREMARKABLE AND SALINE LOCKED. CALL LIGHT WITHIN REACH. NO REQUESTS AT THIS TIME.
[2017-04-24 01:58] VITALS: BP 155/56
--- NOTE | 2017-04-24 05:31 | NUR ---
PT HAS NO COMPLAINTS THIS AM. REMAINS ALERT X 3 ALTHOUGH SEEMS A LITTLE CONFUSED AT TIMES STATING INAPPROPRIATE COMMENTS TO SITUATIONS - REORIENTS QUICKLY. INCONTINANT OF URINE. EVERY 2 HOUR TURN - TOLERATED WELL. NO REQUESTS, CALL LIGHT WITHIN REACH. BED ALARM ON.
[2017-04-24 06:34] VITALS: BP 154/57
--- NOTE | 2017-04-24 06:49 | NUR ---
LABS DRAWN ORDERED - AWAITING RESULTS. PT ABLE TO REPOSITION SELF TO RIGHT SIDE. ATTENDS DRY.
--- NOTE | 2017-04-24 07:10 | Progress Note ---
Subjective General Note Date: April 24, 2017 Admission Date: April 20, 2017 Hospital Day: 5 PCP: Hossein Heard M.D. Status: Inpatient, Acute Care in patient. Advanced Directive: NO CODE Room: 306 Admission History: The patient is a 66-year-old white female with a past medical history of type 2 diabetes mellitus-insulin requiring, hyperlipidemia, hypertension, chronic kidney disease stage IV, gastroesophageal reflux, depression, recurrent UTI, who presented to [facility] ED on the day of admission, secondary to complaints of hypoglycemia, hypothermia weakness with associated mental status changes. During her initial workup the ED was found that she was with a UTI. She was notably hypoglycemic and hypothermic. Patient had altered mental status changes at the time of her initial admission. Patient was subsequently admitted by hospitalist services. Patient's diabetic management was altered for avoidance of hypoglycemic events. She was started on IV antibiotic Levaquin. The long- acting Lantus was discontinued. Patient was pretty low-dose sliding scale insulin. Other home medications were continued. Discussed the care and dynamics of care with emergency medical technician/driver at the [facility]. Patient's anemia was assessed. Was found the patient's iron deficient anemic. With the change in her following status along with mildly poor nutrition support was found the patient was having a drop in her hemoglobin. Patient was seen with a hemoglobin of 7 on day 4 of her hospital stay. Patient was given 2 units of cross matched PRBCs. It was also determined that patient had yeast infection involving the skin. Patient also grew out yeast on her urine sample. Patient is given 2 doses of fluconazole 150 mg daily. Patient appeared to have confusion at times during the day. This is thought to be patient's baseline. Nursing staff states that patient was not completely oriented. Has some confusion but generally is not to this degree. Patient is discharged to SNF. Patient will be managed in the care of Dr. Heard; at [facility]. For other history present illness, past medical history, family history, social history, review of systems, and admission physical examination please see the patient's history and physical examination and ER visit note in the patient's medical record. Subjective: Patient has no complaints this morning. She appears to some confusion. Patient states that she is ready to go about her previous facility. Patient had one large bowel movement. She reported no pain in the stump on the right and left hip region. She does not report shortness of breath generally feels well Constitutional Denies: Fever, Chills. Respiratory Denies: Wheezing. Cardiovascular Denies: Palpitations. Physical Exam Vital Signs / I&Os Vital Signs Date Time Temp Pulse Resp B/P Pulse O2 O2 Flow FiO2 Ox Delivery Rate 04/24 0634 97.5 74 16 154/57 96 Room Air 0.0 04/24 0158 98.2 71 17 155/56 96 Room Air 04/23 2059 71 04/23 2053 98.1 71 18 150/55 97 Room Air 0.0 04/23 1933 Room Air 04/23 1843 97.3 67 16 148/58 97 04/23 1803 97.9 68 16 164/62 96 04/23 1513 98.4 64 18 155/62 96 04/23 1507 98.4 65 17 141/83 97 04/23 1429 98.1 63 18 148/63 04/23 1244 98.2 66 17 149/77 97 04/23 1217 97.5 67 18 148/63 97 04/23 1202 98.8 67 20 146/63 97 04/23 1156 98.8 66 19 150/59 97 Room Air 04/23 1057 98.1 70 16 158/66 97 Room Air 04/23 0935 72 04/23 0730 Room Air I&O 04/23 0800 04/23 1600 04/24 0000 Intake Total 360 510 410 Output Total 875 100 535 Balance -515 410 -125 General Appearance Alert, Cooperative HEENT EOMI Lungs Clear to auscultation Cardiovascular Regular rate and rhythm, No murmurs, gallops, rubs Abdomen Soft LAB Results Laboratory Tests 04/24 0645 Chemistry Plasma Sodium (136 - 145 mmol/L) 139 Plasma Potassium (3.5 - 5.1 mmol/L) 5.1 Plasma Chloride (98 - 107 mmol/L) 106 CO2 (Enzymatic) (21 - 32 mmol/L) 18 BUN (7 - 18 mg/dL) 65 Creatinine (0.6 - 1.3 mg/dL) 4.6 Est GFR ( Amer) (mL/min) 12.24 Est GFR (Non-Af Amer) (mL/min) 10.10 Glucose (70 - 110 mg/dL) 77 Plasma Calcium (8.5 - 10.1 mg/dL) 8.5 Plasma Magnesium (1.8 - 2.4 mg/dL) 1.7 Total Bilirubin (0.0 - 1.0 mg/dL) 0.5 AST (15 - 37 U/L) 10 ALT (12 - 78 U/L) 8 Alkaline Phosphatase (46 - 116 U/L) 89 Total Protein (6.4 - 8.2 g/dL) 5.3 Albumin (3.3 - 5.0 g/dL) 2.1 Hematology WBC (4.5 - 11.5 K/uL) 6.2 RBC (4.00 - 5.20 M/uL) 3.10 Hgb (12.0 - 16.0 gm/dL) 9.2 Hct (36.0 - 46.0 %) 27.9 MCV (80 - 100 fL) 90 MCH (26 - 34 pg) 30 RDW (11.6 - 14.8 %) 19.3 Neut % (Auto) (50 - 75 %) 79.7 Lymph % (Auto) (25 - 40 %) 9.7 [place] % (Auto) (3 - 14 %) 7.2 Eos % (Auto) (0 - 4 %) 3.0 Baso % (Auto) (0 - 2 %) 0.4 Plt Count, EDTA (150 - 400 K/uL) 203 PUBS MCHC (31 - 37 g/dL) 33 Assessment and Plan Problem List 1. Anemia Plan The H&H showing is showing a hemoglobin of 9.2. Patient admitted with hemoglobin of 7.3. Patient was received 2 units of packed red blood cells yesterday. Patient should be followed by primary care. The H&H should be checked within 7 days. If there is decline in anemia panel may consider alternatives for finding a source for bleeding. In maintain patient should maintain 20/25 ferrous sulfate twice a day. Iron studies are available. Patient should have all iron studies transferred to PCP. 2. Diabetes Plan Diabetes seems to be in better control. The plan is to avoid hypoglycemic events. Therefore the long-acting insulin was discontinued. Stopping the Lantus would be better than repeat hypoglycemic events. That means that the blood sugars will run on the higher side. This should be covered by the short acting insulin hemoglobin. Patient is on a low-dose sliding scale. Patient should be followed up by her primary care provider to assess her blood sugars and make adjustments insulins if needed. 3. Hypoglycemia Plan Strong recommendations to avoid hypoglycemic events. This is emphasized to the care facility. Also had discussion with Dr. Heard who is the emergency medical technician/driver. They're aware of her discharge and then arrival. Patient should have blood sugars drawn every meal and before bedtime. Continue with the sliding scale low-dose. Stopping Lantus. 4. Renal failure, acute on chronic Plan Patient chronic renal failure with elevated potassium. Patient should have a BMP with a magnesium and phosphate over the next 7 days. Kidney function should be penicillins. Patient maintains at baseline and this should be rechecked in the next month. Patient should follow-up with primary care for further management. 5. Hyperkalemia Status Acute Onset Date Unknown Plan Potassium is been is recently elevated during her admission. This is secondary to renal failure. Recheck potassium level in the next 7 days. 6. UTI (urinary tract infection) Plan UTI resolving. Patient currently on Levaquin for UTI. This taken every 2 days. Remain on 250 mg Levaquin for the next 6 days. Current status: Fair Anticipated discharge date: Today Anticipated discharge placement: Short-term Term care facility Patient care time: Time spent in chart review, patient interview, physical exam, CPOE, and care documentation: 35 minutes. More than 35 minutes was spent also in preparation for discharge. This included review of chart, and preparing the discharge summary. Visit to patient today: 2 Complexity of care: moderate E&M Codes Discharge: Inpt >30 min spent/[id number]
--- NOTE | 2017-04-24 07:51 | NUR ---
PATIENT IS ALERT THIS MORNING, WHEN ASKED HOW SHE SLEPT SHE SAID SHE DID OKAY. 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 THEN ASKED THIS RN "[employer]" GOING.
[2017-04-24 11:25] VITALS: BP 143/57
[2017-04-24] MEDS ORDERED: LEVAQUIN250 MG PO (11:56)
--- NOTE | 2017-04-24 12:08 | Provider's Discharge Care Plan ---
Problem, Goal, Plan Problem List 1. Anemia Goals: You received 2 units of PRBCs and patient, Continue with the ferrous sulfate Watch for any changes in volume status. Instructions: Follow up as directed, Reduce stress, follow-up instructions by physician Improve on nutritional value. 2. COPD (chronic obstructive pulmonary disease) Goals: Improved health/wellness, Therapeutic intervention Instructions: Follow up as directed 3. Diabetes Goals: Improved health/wellness, the long-acting insulin was discontinued He had repeated episodes of upper glycemia. Blood sugar should be better controlled avoiding the risks for low blood sugars. Instructions: discontinue Lantus. Continue with the sliding scale insulin with Humalog. This should be on a low-dose sliding scale. The blood sugar should be evaluated before meals and before bedtime. insulin should be adjusted cord into the blood sugar 4. Fungal dermatitis Goals: Improve function Instructions: Follow up as directed 5. Hypothermia Goals: Therapeutic intervention Instructions: maintain appropriate room temperature. He may need warming blankets. Avoid the low temperatures 6. Hypoglycemia Goals: Improve function, Learn about illness Instructions: Follow up as directed 7. UTI (urinary tract infection) Goals: Learn about illness, Prevent disease progress Instructions: Follow up as directed, Take meds as directed 8. Hyperkalemia Goals: Improve disease control, Therapeutic intervention Instructions: potassium should be evaluated by your team physician
--- NOTE | 2017-04-24 12:12 | Discharge Summary ---
Discharge Summary Report Admit Date 04/20/17 Discharge Date 04/24/17 Admission Diagnosis 1. Anemia 2. COPD (chronic obstructive pulmonary disease) 3. Diabetes 4. Fungal dermatitis 5. Hypothermia 6. Hypoglycemia 7. UTI (urinary tract infection) 8. Hyperkalemia Discharge Diagnosis 1. Anemia 2. COPD (chronic obstructive pulmonary disease) 3. Diabetes 4. Fungal dermatitis 5. Hypothermia 6. Hypoglycemia 7. UTI (urinary tract infection) 8. Hyperkalemia Brief History See HPI dated 04/20/2017. Hospital Course 66-year-old white female with a past medical history of type 2 diabetes mellitus -insulin requiring, hyperlipidemia, hypertension, chronic kidney disease stage IV, gastroesophageal reflux, depression, recurrent UTI, who presented to [facility] ED on the day of admission, secondary to complaints of hypoglycemia, hypothermia weakness with associated mental status changes. During her initial workup the ED was found that she had a UTI. She was notably hypoglycemic and hypothermic. Patient had altered mental status changes at the time of her initial admission. Patient was subsequently admitted by hospitalist services. Patient's diabetic management was altered for avoidance of hypoglycemic events. She was started on IV antibiotic Levaquin. The long-acting Lantus was discontinued. Patient was pretty low-dose sliding scale insulin. Other home medications were continued. Discussed the care and dynamics of care with medical assisting instructor at the [facility]. Patient's anemia was assessed. Was found the patient's iron deficient anemic. With the change in her following status along with mildly poor nutrition support was found the patient was having a drop in her hemoglobin. Patient was seen with a hemoglobin of 7 on day 4 of her hospital stay. Patient was given 2 units of cross matched PRBCs. It was also determined that patient had yeast infection involving the skin. Patient also grew out yeast on her urine sample. Patient is given 2 doses of fluconazole 150 mg daily. Patient appeared to have confusion at times during the day. This is thought to be patient's baseline. Nursing staff states that patient was not completely oriented. Has some confusion but generally is not to this degree. Patient is discharged to SNF. Patient will be managed in the care of Dr. Heard; at [facility] General Appearance Cooperative, No acute distress HEENT EOMI Lungs Normal air movement Cardiovascular Normal S1, Normal S2 Abdomen Soft, No tenderness, No hepatospenomegaly Skin No Breakdown Psych/Mental Status Mood NL, mild confusion Lab/Imaging Laboratory Tests 04/24 0645 Chemistry Plasma Sodium (136 - 145 mmol/L) 139 Plasma Potassium (3.5 - 5.1 mmol/L) 5.1 Plasma Chloride (98 - 107 mmol/L) 106 CO2 (Enzymatic) (21 - 32 mmol/L) 18 BUN (7 - 18 mg/dL) 65 Creatinine (0.6 - 1.3 mg/dL) 4.6 Est GFR ( Amer) (mL/min) 12.24 Est GFR (Non-Af Amer) (mL/min) 10.10 Glucose (70 - 110 mg/dL) 77 Plasma Calcium (8.5 - 10.1 mg/dL) 8.5 Plasma Magnesium (1.8 - 2.4 mg/dL) 1.7 Total Bilirubin (0.0 - 1.0 mg/dL) 0.5 AST (15 - 37 U/L) 10 ALT (12 - 78 U/L) 8 Alkaline Phosphatase (46 - 116 U/L) 89 Total Protein (6.4 - 8.2 g/dL) 5.3 Albumin (3.3 - 5.0 g/dL) 2.1 Hematology WBC (4.5 - 11.5 K/uL) 6.2 RBC (4.00 - 5.20 M/uL) 3.10 Hgb (12.0 - 16.0 gm/dL) 9.2 Hct (36.0 - 46.0 %) 27.9 MCV (80 - 100 fL) 90 MCH (26 - 34 pg) 30 RDW (11.6 - 14.8 %) 19.3 Neut % (Auto) (50 - 75 %) 79.7 Lymph % (Auto) (25 - 40 %) 9.7 [place] % (Auto) (3 - 14 %) 7.2 Eos % (Auto) (0 - 4 %) 3.0 Baso % (Auto) (0 - 2 %) 0.4 Plt Count, EDTA (150 - 400 K/uL) 203 PUBS MCHC (31 - 37 g/dL) 33 Discharge Instructions/Meds The H&H showing is showing a hemoglobin of 9.2. Patient admitted with hemoglobin of 7.3. Patient was received 2 units of packed red blood cells yesterday. Patient should be followed by primary care. The H&H should be checked within 7 days. If there is decline in anemia panel may consider alternatives for finding a source for bleeding. In maintain patient should maintain 20/25 ferrous sulfate twice a day. Iron studies are available. Patient should have all iron studies transferred to PCP. Diabetes seems to be in better control. The plan is to avoid hypoglycemic events. Therefore the long-acting insulin was discontinued. Stopping the Lantus would be better than repeat hypoglycemic events. That means that the blood sugars will run on the higher side. This should be covered by the short acting insulin hemoglobin. Patient is on a low-dose sliding scale. Patient should be followed up by her primary care provider to assess her blood sugars and make adjustments insulins if needed. Strong recommendations to avoid hypoglycemic events. This is emphasized to the care facility. Also had discussion with Dr. Heard who is the medical assisting instructor. They're aware of her discharge and then arrival. Patient should have blood sugars drawn every meal and before bedtime. Continue with the sliding scale low-dose. Stopping Lantus. Patient chronic renal failure with elevated potassium. Patient should have a BMP with a magnesium and phosphate over the next 7 days. Kidney function should be penicillins. Patient maintains at baseline and this should be rechecked in the next month. Patient should follow-up with primary care for further management. Potassium is been is recently elevated during her admission. This is secondary to renal failure. Recheck potassium level in the next 7 days. UTI resolving. Patient currently on Levaquin for UTI. This taken every 2 days. Remain on 250 mg Levaquin for the next 6 days. Patient should continue with the home medication as discussed. Continue with the acetaminophen 600 mg as needed for pain. Continue the amlodipine 10 mg by mouth daily. Should continue with the ascorbic acid and other vitamin source including folic acid. Patient should continue the ferrous sulfate 325 mg 3 times per day. We'll discontinue the Lantus. Continue the Humalog with a low-dose muscle sliding scale. The blood sugar should be checked before meals and at bedtime. Labetalol 100 mg 1 tab twice per day. Continue the melatonin as needed 3 mg 1 tab daily. Milk of magnesia as needed at 1200 mg per 1ml as needed. Pantoprazole 40 mg as needed. Caution with senna 8.6 mg tablet 1 tablet daily as needed. Continue the levofloxacin 75 mg by mouth daily. Patient should also continue with Levaquin by mouth 250 mg daily for the next 6 days. More than 40 minutes was spent reviewing chart, writing summary and coordinating care. E&M Codes Discharge: Inpt >30 min spent/[id number]
--- NOTE | 2017-04-24 14:07 | NUR ---
PATIENT ABOUT AN HOUR AND A HALF AGO HAD AN INCONTINENCE OF BOWEL. NOTIFIED DR LINARES, TO GET A SAMPLE IF PATIENT HAS ANOTHER ONE. OFF/ON CONFUSION, MD AWARE WELL. GLUCOSE HAS BEEN 77 FOR BREAKFAST AND 100 FOR LUNCH WITH NO COVERAGE NEEDED. MD AWARE. DAUGHTER IN ROOM EARLIER. MEPILEX WAS REPLACED EARLIER. NO OPEN WOUNDS NOTED ON THE COCCYX.
[2017-04-24 14:48] VITALS: BP 150/57
--- NOTE | 2017-04-24 16:20 | NUR ---
PAPER WORK FAXED TO [facility], SPOKE TO GARY SHE VERIFIED THE PAPER WORK THAT SHE REIEVED. HARD COPY FOR THE LEVAQUIN IN THE CHART, SENT WITH THE MEDICS. REPORT GIVEN TO EJ AT [facility]. LEFT BY AMBULANCE. ALL PAPERWORK WITH THE CREW.
--- NOTE | 2017-05-15 06:36 | ED DISCHARGE INSTRUCTIONS ---
Patient: ANDRE DONATO General Instructions [facility] VisitID: [id number] [address] [place] [address] 66y, F Registration Date/Time: 04/20/2017 Hypoglycemia with coma- associated with type 2 diabetes and use of insulin. Severe dehydration. Acute urinary tract infection with cystitis and pyelonephritis (resolving). Anemia associated with chronic disease and chronic renal disease. Hyperkalemia. Moderate hypothermia with altered mental status and coma in the field and upon arrival at the ED. No hypothermia secondary to immersion or exposure. (Electronically signed by Marcos Hopkins DO 04/20/2017 13:04)
--- NOTE | 2017-05-15 06:36 | ED DISCHARGE INSTRUCTIONS ---
Patient: ANDRE DONATO General Instructions [facility] VisitID: [id number] [address] [place] [address] 66y, F Registration Date/Time: 04/20/2017 Hypoglycemia with coma- associated with type 2 diabetes and use of insulin. Severe dehydration. Acute urinary tract infection with cystitis and pyelonephritis (resolving). Anemia associated with chronic disease and chronic renal disease. Hyperkalemia. Moderate hypothermia with altered mental status and coma in the field and upon arrival at the ED. No hypothermia secondary to immersion or exposure. (Electronically signed by Marcos Hopkins DO 04/20/2017 13:04)
--- NOTE | 2017-05-15 06:37 | ED MAR SUMMARY ---
..... Medication Administration Record [facility] [address] [place] [address] Patient: ANDRE DONATO Visit ID: [id number] 66y, F Weight: 86.1 kg Height/Length: 63 in BMI: 33.6 ALLERGIES: Codeine Start 07:35 04/20/2017 Daisy Knight R.N., Stop 10:18 04/20/2017 Daisy Knight R.N. Medication Administered: IV NS (SALINE), Dose: IV Fluids over 1 hour(s), Rate: 1000 mL/hr, Dispensed: 1000 mL bag, Site: #1 left. Medication Ordered: IV NS : initial bolus 250 mL (1000 mL/hr), then 125 mL/hr for X5 (NOW). Given 07:35 04/20/2017 Daniel Christine R.N. Medication Administered: D-50 [IVP], Dose: 1 Amp IVP over 1 minute(s), Site: #1 left. Medication Ordered: D-50 IV 1 amp (HIGH ALERT MEDICATION, NOW, IVP). Start 10:18 04/20/2017 Daisy Knight R.N., Continued Upon Disposition 12:00 04/20/2017 Daisy Knight R.N. Medication Administered: IV D5W NS (DEXTROSE-NACL), Dose: IV Fluids over 4 hour(s), Rate: 200 mL/hr, Dispensed: 1000 mL bag, Site: #1 left. Medication Ordered: IV D5W NS : initial bolus none -, then 200 mL/hr for X1 (NOW) (verbal order per Dr. Emery).
--- NOTE | 2017-05-15 06:37 | ED MAR SUMMARY ---
..... Medication Administration Record [facility] [address] [place] [address] Patient: ANDRE DONATO Visit ID: [id number] 66y, F Weight: 86.1 kg Height/Length: 63 in BMI: 33.6 ALLERGIES: Codeine Start 07:35 04/20/2017 Daisy Knight R.N., Stop 10:18 04/20/2017 Daisy Knight R.N. Medication Administered: IV NS (SALINE), Dose: IV Fluids over 1 hour(s), Rate: 1000 mL/hr, Dispensed: 1000 mL bag, Site: #1 left. Medication Ordered: IV NS : initial bolus 250 mL (1000 mL/hr), then 125 mL/hr for X5 (NOW). Given 07:35 04/20/2017 Daniel Christine R.N. Medication Administered: D-50 [IVP], Dose: 1 Amp IVP over 1 minute(s), Site: #1 left. Medication Ordered: D-50 IV 1 amp (HIGH ALERT MEDICATION, NOW, IVP). Start 10:18 04/20/2017 Daisy Knight R.N., Continued Upon Disposition 12:00 04/20/2017 Daisy Knight R.N. Medication Administered: IV D5W NS (DEXTROSE-NACL), Dose: IV Fluids over 4 hour(s), Rate: 200 mL/hr, Dispensed: 1000 mL bag, Site: #1 left. Medication Ordered: IV D5W NS : initial bolus none -, then 200 mL/hr for X1 (NOW) (verbal order per Dr. Emery).
--- NOTE | 2017-05-15 06:37 | ED MED RECONCILIATION SUMMARY ---
Patient: ANDRE DONATO Medication Reconciliation Report [facility] VisitID: [id number] [address] [place] [address] 66y, F Registration Date/Time: 04/20/2017 Weight: 86.1 kg Height/Length: 63 in. BMI: 33.6 ALLERGIES: Codeine The patient's Home Medications are listed below: THE FOLLOWING MEDICATIONS NEED TO BE RECONCILED: Acetaminophen Oral Amlodipine Besy-Benazepril HCl Oral 10mg, daily Ascorbic Acid Oral (500 mg) 1 tablet, daily Atorvastatin Calcium Oral (20 mg) 1 tablet, daily Cyanocobalamin 1000MCG daily Dulcolax Rectal (10 mg) 1 suppository, daily Ergocalciferol Oral Ferrous Sulfate Oral 325 mg, 3x a day Folic Acid Oral (1 mg) 1 tablet, daily Furosemide Oral 40 mg, daily HydrALAZINE HCl Injection Insulin Glargine Subcutaneous 10 units, at bedtime Insulin Lispro (Human) Subcutaneous Labetalol HCl Oral (100 mg) 1 tablet, 2x a day Levofloxacin Oral 250 mg, daily Melatonin Oral (3 mg) 1 tablet, daily Melatonin Oral Milk of Magnesia Oral 1200mg/15ml, daily Pantoprazole Sodium Oral Senna Laxative Oral (8.6 mg) 1 tablet, daily Venlafaxine HCl ER Oral 75mg, daily The source(s) of the original Home Medication information: Not obtained. The following Medications were given to the patient in the Emergency Department: D-50 [IVP] IVP 1 Amp, administered: 04/20/2017 7:35:00 AM IV NS IV Fluids bolus 0, then 1000 mL/hr, administered: 04/20/2017 7:35:00 AM IV D5W NS IV Fluids bolus 0, then 200 mL/hr, administered: 04/20/2017 10:18:00 AM The following Medications were prescribed to the patient: None.
--- NOTE | 2017-05-15 06:37 | ED MED RECONCILIATION SUMMARY ---
Patient: ANDRE DONATO Medication Reconciliation Report [facility] VisitID: [id number] [address] [place] [address] 66y, F Registration Date/Time: 04/20/2017 Weight: 86.1 kg Height/Length: 63 in. BMI: 33.6 ALLERGIES: Codeine The patient's Home Medications are listed below: THE FOLLOWING MEDICATIONS NEED TO BE RECONCILED: Acetaminophen Oral Amlodipine Besy-Benazepril HCl Oral 10mg, daily Ascorbic Acid Oral (500 mg) 1 tablet, daily Atorvastatin Calcium Oral (20 mg) 1 tablet, daily Cyanocobalamin 1000MCG daily Dulcolax Rectal (10 mg) 1 suppository, daily Ergocalciferol Oral Ferrous Sulfate Oral 325 mg, 3x a day Folic Acid Oral (1 mg) 1 tablet, daily Furosemide Oral 40 mg, daily HydrALAZINE HCl Injection Insulin Glargine Subcutaneous 10 units, at bedtime Insulin Lispro (Human) Subcutaneous Labetalol HCl Oral (100 mg) 1 tablet, 2x a day Levofloxacin Oral 250 mg, daily Melatonin Oral (3 mg) 1 tablet, daily Melatonin Oral Milk of Magnesia Oral 1200mg/15ml, daily Pantoprazole Sodium Oral Senna Laxative Oral (8.6 mg) 1 tablet, daily Venlafaxine HCl ER Oral 75mg, daily The source(s) of the original Home Medication information: Not obtained. The following Medications were given to the patient in the Emergency Department: D-50 [IVP] IVP 1 Amp, administered: 04/20/2017 7:35:00 AM IV NS IV Fluids bolus 0, then 1000 mL/hr, administered: 04/20/2017 7:35:00 AM IV D5W NS IV Fluids bolus 0, then 200 mL/hr, administered: 04/20/2017 10:18:00 AM The following Medications were prescribed to the patient: None.
== END 2017-04-24 16:15 | DRG 638 ==
LOC: ED SRH 07:18 → TRANS SRH 09:00 → CC SRH 12:22
PROVIDERS: ADMIT Emergency Medicine
PROC: 30233N1 Transfusion of Nonautologous Red Blood Cells into Peripheral Vein, Percutaneous Approach (ICD-10-PCS; principal; 2017-04-20)
DX: E11.649 Type 2 diabetes mellitus with hypoglycemia without coma (principal); T38.3X5A Adverse effect of insulin and oral hypoglycemic [antidiabetic] drugs, initial encounter; N39.0 Urinary tract infection, site not specified; B96.89 Other specified bacterial agents as the cause of diseases classified elsewhere; R68.0 Hypothermia, not associated with low environmental temperature; E86.0 Dehydration; N17.9 Acute kidney failure, unspecified; E11.22 Type 2 diabetes mellitus with diabetic chronic kidney disease; I12.9 Hypertensive chronic kidney disease with stage 1 through stage 4 chronic kidney disease, or unspecified chronic kidney disease; N18.4 Chronic kidney disease, stage 4 (severe); E11.51 Type 2 diabetes mellitus with diabetic peripheral angiopathy without gangrene; D50.9 Iron deficiency anemia, unspecified; J44.9 Chronic obstructive pulmonary disease, unspecified; E83.42 Hypomagnesemia; B37.2 Candidiasis of skin and nail; R41.0 Disorientation, unspecified; Z89.611 Acquired absence of right leg above knee; Z87.891 Personal history of nicotine dependence; Z79.4 Long term (current) use of insulin
CPT/HCPCS: 83480; 83496; 83754; 83845; 83921; 85241; 85244; 90001; 90004; 90047; 90065; 90074; 90098; 90100; 90155; 90469; 90616; 91004; 91286; 91320; 91504; 91505; 91544; 91643; 91672; 92132; 92610; 92668; 92670; 92720; 93140; 94060; 95059